=== PATIENT | male | born 1955 | race Caucasian/White ===

== ENCOUNTER 2020-05-17 21:06 | Emergency (ER) | payer OTHER, SELFPAY ==
--- NOTE | 2020-05-17 | CT_ITS ---
EXAMINATION: CT HEAD WITHOUT CONTRAST CLINICAL INFORMATION: Transient vision loss. COMPARISON: 12/26/2019. TECHNIQUE: Contiguous helical images of the brain were obtained without IV contrast. Multiplanar reconstructions were performed. DLP: 716 mGy-cm. FINDINGS: There are no pathologic extra-axial fluid collections. The lateral, third, fourth ventricles are nondilated and concordant with the appearance of the sulci. There is no evidence for acute intraparenchymal hemorrhage or infarct. There is neither mass nor mass effect. There are chronic bilateral basal ganglial lacunar infarcts. Again identified is a small focus of encephalomalacia within the posterior right occipital lobe. There is no shift of midline structures. The paranasal sinuses and mastoid air cells are clear. There are no osseous lesions. IMPRESSION: No evidence for acute intracranial injury. Automated exposure control (Care Dose) Adjustment of the mA and/or kv according to patient size (this includes techniques or standardized protocols for targeted exams where dose is matched to indication / reason for exam; i.e. extremities or head).
[2020-05-17 21:14] VITALS: BP 167/88; PULSE 79; RESP 17; TEMP 36.6; O2SAT 98; BMI 20.4
[2020-05-17 21:25] VITALS: PULSE 73
--- NOTE | 2020-05-17 21:30 | ED.CHESTPAIN ---
HPI - Chest Pain General Chief Complaint: Chest Pain Stated Complaint: Chest Pressure Time Seen by Provider: 05/17/20 21:30 History of Present Illness HPI narrative: This is a 65-year-old male with significant past medical history of recurrent strokes and he reports isolated to his eyes and he also reports recent cardiac catheterization with stent placement. 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 He states it would never result in constant pain and was not associated with exertion Or shortness of breath. He then endorses that he experienced complete vision loss in the left eye at approximately 7:30 a.m. this evening and he states that it lasted for 1 hour and has completely returned. He states that this is similar to other episodes and he did take 181 mg baby aspirin at home. Otherwise, he is experiencing situational stressors with the anniversary of his son's . 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 Related Data Home Medications Medication Instructions Recorded Confirmed amlodipine 10 mg tablet 10 mg PO DAILY 05/16/20 05/17/20 atorvastatin 40 mg tablet 40 mg PO DAILY 05/16/20 05/17/20 bupropion HCl 300 mg 24 hr tablet, 300 mg PO DAILY 05/16/20 05/17/20 extended release carvedilol 25 mg tablet 25 mg PO BID 05/16/20 05/17/20 chlorthalidone 50 mg tablet 50 mg PO DAILY 05/16/20 05/17/20 clopidogrel 75 mg tablet 75 mg PO DAILY 05/16/20 05/17/20 gabapentin 300 mg capsule 300 mg PO DAILY 05/16/20 05/17/20 levofloxacin 750 mg tablet 750 mg PO DAILY 05/16/20 05/17/20 omeprazole 20 mg capsule,delayed 20 mg PO DAILY 05/16/20 05/17/20 release spironolactone 25 mg tablet 25 mg PO DAILY 05/16/20 05/17/20 lisinopril 1 tab PO BID 05/17/20 05/17/20 Allergies Allergy/AdvReac Type Severity Reaction Status Date / Time cat dander [CATS] Allergy Unknown UNKNOWN Unverified 05/01/20 14:37 Review of Systems Review of Systems: Pertinent positives and negatives as stated in HPI 10 point review of systems is otherwise negative. PMFSH Past Medical History Source: nursing notes reviewed Medical History Coronary artery disease CVA (cerebral vascular accident) HTN (hypertension) Myocardial infarction Surgical History History of back surgery History of cholecystectomy Hx of cardiac catheterization Family History Family History Father No problems noted. Social History Social History Smoking Status: Current every day smoker Use of substances other than those prescribed or required for medical reasons: No Advance Directives: No Advance Directives Information Provided: Yes Physical Exam Vital Signs and I&O and Narrative: Vital Signs and I&O: Vital Signs Temp 98 F 05/17/20 21:14 Pulse 79 05/17/20 21:14 Resp 17 05/17/20 21:14 BP 167/88 H 05/17/20 21:14 Pulse Ox 98 05/17/20 21:14 Intake & Output 05/17/20 05/17/20 05/18/20 06:59 18:59 06:59 Weight 68.353 kg Body Mass Index 20.4 VITAL SIGNS: Reviewed. GENERAL: Well developed, well nourished, in no acute distress. HEAD: Normocephalic/atraumatic, EYES: PERRLA, EOMI intact without pain, no nystagmus/pallor/icterus noted EARS: Ext canals without abnormality, TMs non-bulging and non-erythematous NOSE: Nares patent bilateral OROPHARYNX: no oral lesions noted, posterior pharynx clear and non-erythematous without noted tonsillar enlargement/erythema/exudates NECK: Supple, no adenopathy LUNGS: Normal breath sounds. No adventitious sounds or accessory muscle use. SpO2<> CARDIOVASCULAR: Regular rate and rhythm without noted murmurs, no JVD or lower extremity edema. ABDOMEN: Soft, non-tender, non-distended with bowel sounds. No rigidity. No guarding. No palpable masses or hernias noted MUSCULOSKELETAL: No tenderness, deformities, or effusions noted on gross inspection. EXTREMITIES: No cyanosis, clubbing or edema. SKIN: Inspection of the skin reveals no rashes, ulcerations, jaundice, pallor, or petechiae. NEUROLOGIC: Alert and oriented x 4. Strength and sensation to light touch were grossly intact Awake and alert, PERRLA. EOMI without nystagmus. face symmetric. facial sensation intact bilaterally. speech clear and fluent. no tongue deviation. normal uvula elevation. nml shoulder shrug. 5/5 strength bilat upper and lower extrem. sensation grossly intact x4 extrem. FTN intact. no pronator drift. ambulatory with steady gait. NIHSS: <0> at time <2124> Course Course Hospital Course: This patient has had complete resolution of his neurologic symptoms and is currently on aspirin/Plavix and is not a current tPA candidate. 2203: Discussed this case with Neurology who states that patient can be evaluated outpatient, especially given that he has a CTA of the neck from December/2019 that was negative for carotid stenoses there is no indication for further outpatient imaging, and recommends an ESR to ascertain the possibility of giant cell arteritis. Review of all lab work to include imaging and serial high sensitivity troponins are negative for evidence of acute cardiac ischemia, pneumonia, and although the ESR was mildly elevated this can be followed up outpatient as the value is not consistent with giant cell arteritis. CT of the head was negative for any acute intracranial findings. All results and findings were discussed with the patient at bedside and he was instructed to resume all home medications and follow up with his middle school art teacher and primary care provider on Tuesday. MDM - Chest Pain MDM Narrative Medical decision making narrative: This is a 65-year-old male with history and clinical presentation concerning for amaurosis fugax and possible anginal symptoms due to possible emotional stress. Lab Data Result diagrams: 05/17/20 21:46 05/17/20 21:46 Labs: Lab Results 05/17/20 05/17/20 05/17/20 Range/Units 21:35 21:46 21:46 WBC 9.8 (4.8-10.8) X10*3/uL RBC 4.21 L (4.60-5.80) X10*6/uL Hgb 12.8 L (14.0-18.0) g/dl Hct 39.0 L (42-52) % MCV 92.6 (80-98) fL MCH 30.4 (27.0-33.0) pg MCHC 32.8 (31.0-36.0) g/dl RDW 14.2 (11.0-16.0) % Plt Count 306 (160-400) X10*3/uL MPV 10.9 (9.4-12.4) fL Immature Gran % (Auto) 0.3 (0.0-0.4) % Neut % (Auto) 49.9 (45-73) % Lymph % (Auto) 32.5 (20-40) % Ashley % (Auto) 6.8 (2-11) % Eos % (Auto) 9.5 H (0-4) % Baso % (Auto) 1.0 (0-2) % Neut # (Auto) 4.9 (2.0-8.3) X10*3/uL Lymph # (Auto) 3.2 (1.2-4.9) X10*3/uL Ashley # (Auto) 0.7 (0.1-1.2) X10*3/uL Eos # (Auto) 0.9 H (0.0-0.4) X10*3/uL Baso # (Auto) 0.1 (0.0-0.2) X10*3/uL Abs Immat Gran (auto) 0.03 (0.00-0.03) X10*3/uL Absolute Nucleated RBC 0.000 (0.0-0.012) X10*3/uL Nucleated RBC % (auto) 0.0 (0.0-0.2) /100WBC ESR 30 H (0-15) MM/HR PT (10.8-13.0) SEC INR (0.9-1.1) Hold Blue Top Sodium 139 (135-145) mmol/L Potassium 3.8 (3.3-5.1) mmol/l Chloride 106 (96-108) mmol/L Carbon Dioxide 22 (22-29) mmol/L Anion Gap 15 (12-20) BUN 10 (9-16) mg/dL Creatinine 1.14 (0.5-1.4) mg/dL Estim Creat Clear Calc 63.2 Estimated GFR > 60 Random Glucose 73 (60-115) mg/dL Calcium 8.5 (8.4-10.2) mg/dL Total Bilirubin 0.2 (0.0-1.0) mg/dL AST 18 (5-37) U/L ALT 22 (0-40) U/L Alkaline Phosphatase 114 (39-117) U/L Troponin I High Sens (<3.5-35.0) ng/L Total Protein 6.3 L (6.5-8.0) g/dL Albumin 3.9 (3.5-5.0) g/dL 05/17/20 05/17/20 05/18/20 Range/Units 21:46 21:46 00:51 WBC (4.8-10.8) X10*3/uL RBC (4.60-5.80) X10*6/uL Hgb (14.0-18.0) g/dl Hct (42-52) % MCV (80-98) fL MCH (27.0-33.0) pg MCHC (31.0-36.0) g/dl RDW (11.0-16.0) % Plt Count (160-400) X10*3/uL MPV (9.4-12.4) fL Immature Gran % (Auto) (0.0-0.4) % Neut % (Auto) (45-73) % Lymph % (Auto) (20-40) % Ashley % (Auto) (2-11) % Eos % (Auto) (0-4) % Baso % (Auto) (0-2) % Neut # (Auto) (2.0-8.3) X10*3/uL Lymph # (Auto) (1.2-4.9) X10*3/uL Ashley # (Auto) (0.1-1.2) X10*3/uL Eos # (Auto) (0.0-0.4) X10*3/uL Baso # (Auto) (0.0-0.2) X10*3/uL Abs Immat Gran (auto) (0.00-0.03) X10*3/uL Absolute Nucleated RBC (0.0-0.012) X10*3/uL Nucleated RBC % (auto) (0.0-0.2) /100WBC ESR (0-15) MM/HR PT 11.6 (10.8-13.0) SEC INR 1.0 (0.9-1.1) Hold Blue Top SEE NOTE Sodium (135-145) mmol/L Potassium (3.3-5.1) mmol/l Chloride (96-108) mmol/L Carbon Dioxide (22-29) mmol/L Anion Gap (12-20) BUN (9-16) mg/dL Creatinine (0.5-1.4) mg/dL Estim Creat Clear Calc Estimated GFR Random Glucose (60-115) mg/dL Calcium (8.4-10.2) mg/dL Total Bilirubin (0.0-1.0) mg/dL AST (5-37) U/L ALT (0-40) U/L Alkaline Phosphatase (39-117) U/L Troponin I High Sens 22.7 23.5 (<3.5-35.0) ng/L Total Protein (6.5-8.0) g/dL Albumin (3.5-5.0) g/dL ECG Data ECG #1: Attestation: I personally reviewed and interpreted this ECG as follows: Interpretation: Atrial sensed pacer, HR-71, no evidence of ischemia Discharge Plan Discharge Clinical Impression: Loss of vision Chest pain Qualifiers: Chest pain type: unspecified Qualified Code(s): R07.9 - Chest pain, unspecified Patient Disposition: Home, Self-Care Instructions: Chest Pain (ED) Additional Instructions: 1. Resume all home medications as prescribed. 2. follow-up with your middle school art teacher as scheduled on Tuesday The patient and/or family acknowledge understanding of results (as applicable), diagnosis, treatment plan, need for follow up, and symptoms that should prompt a return to the emergency room. Prescriptions: No Action lisinopril 40 mg tablet 1 tab PO BID RF: 0 Referrals: Franck Chris MD [Primary Care Provider] - 2 days ( further discussion regarding recurrent left eye vision loss.)
--- NOTE | 2020-05-17 21:44 | XR_ITS ---
EXAMINATION: XR CHEST CLINICAL INFORMATION: Chest pain COMPARISON: Chest x-ray 09/18/2019 TECHNIQUE: Frontal portable view of the chest was obtained. FINDINGS: Pacemaker leads in the heart. Heart size is normal. The cardiac and mediastinal contours are normal. No pulmonary vascular congestion. The lungs are clear. No pleural effusion or pneumothorax. Compared to prior chest x-ray there has not been substantial change. IMPRESSION: No acute abnormality the chest.
--- NOTE | 2020-05-17 21:44 | ECG_ITS ---
Test Reason : CHEST PRESSURE Blood Pressure : / mmHG Vent. Rate : 071 BPM Atrial Rate : 071 BPM P-R Int : 140 ms QRS Dur : 122 ms QT Int : 440 ms P-R-T Axes : 077 113 089 degrees QTc Int : 478 ms Atrial-sensed ventricular-paced rhythm Abnormal ECG When compared with ECG of 18-SEP-2019 11:59, No significant change was found Referred By: tAiya Denny Electronically Signed By:LAZARO WHITE
[2020-05-17 22:55] LABS: MANUAL DIFF FLAG NO
[2020-05-17 22:57] LABS: Basophils Absolute Auto 0.1 X10*3/uL (0.0-0.2); Eosinophils Absolute Auto 0.9 X10*3/uL (0.0-0.4); Eosinophils Percent Auto 9.5 % (0-4); Hemoglobin 12.8 g/dl (14.0-18.0); Imm Gran Abs Auto 0.03 X10*3/uL (0.00-0.03); Imm Gran Pct Auto 0.3 % (0.0-0.4); Lymphocytes Absolute Auto 3.2 X10*3/uL (1.2-4.9); Lymphocytes Percent Auto 32.5 % (20-40); Mean Corpuscular HGB Conc 32.8 g/dl (31.0-36.0); Mean Corpuscular Hemoglobin 30.4 pg (27.0-33.0); Mean Corpuscular Volume 92.6 fL (80-98); Mean Platelet Volume 10.9 fL (9.4-12.4); Monocytes Absolute Auto 0.7 X10*3/uL (0.1-1.2); Monocytes Percent Auto 6.8 % (2-11); Neutrophils Absolute Auto 4.9 X10*3/uL (2.0-8.3); Neutrophils Percent Auto 49.9 % (45-73); Platelet Count 306 X10*3/uL (160-400); Red Blood Count 4.21 X10*6/uL (4.60-5.80); Red Cell Distribution Width 14.2 % (11.0-16.0); White Blood Count 9.8 X10*3/uL (4.8-10.8)
[2020-05-17 23:18] LABS: Prothrombin Time 11.6 SEC (10.8-13.0)
[2020-05-17 23:31] LABS: Alanine Aminotransferase 22 U/L (0-40); Albumin Level 3.9 g/dL (3.5-5.0); Alkaline Phosphatase 114 U/L (39-117); Anion Gap 15 (12-20); Aspartate Amino Transferase 18 U/L (5-37); Bilirubin Total 0.2 mg/dL (0.0-1.0); Blood Urea Nitrogen 10 mg/dL (9-16); Calcium 8.5 mg/dL (8.4-10.2); Carbon Dioxide 22 mmol/L (22-29); Chloride 106 mmol/L (96-108); Creatinine Clr Calc Pharmacy 63.2; Estimated Glomerular Filt Rate > 60; Glucose Random 73 mg/dL (60-115); Potassium 3.8 mmol/l (3.3-5.1); Sodium 139 mmol/L (135-145); Total Protein 6.3 g/dL (6.5-8.0)
[2020-05-17 23:33] LABS: Troponin-I High Sensitivity 22.7 ng/L (<3.5-35.0)
[2020-05-17 23:36] LABS: Erythrocyte Sedimentation Rate 30 MM/HR (0-15)
[2020-05-18 01:26] LABS: Troponin-I High Sensitivity 23.5 ng/L (<3.5-35.0)
[2020-05-18 02:23] VITALS: BP 142/71; PULSE 66; RESP 18; O2SAT 96
== END 2020-05-18 03:37 | disposition home or self-care (01) ==
PROVIDERS: Emergency Provider Student in an Organized Health Care Education/Training Program; PCP Internal Medicine
DX: R07.9 Chest pain, unspecified (principal); I10 Essential (primary) hypertension; Z86.73 Personal history of transient ischemic attack (TIA), and cerebral infarction without residual deficits
CPT/HCPCS: 36415; 70450; 71045; 80053; 84484; 85025; 85610; 85652; 93005; 93010; 99284

== ENCOUNTER → 2020-05-19 08:48 | Outpatient (BNVA) | payer OTHER, SELFPAY | PROVIDERS: PCP Internal Medicine; Visit Provider Internal Medicine Cardiovascular Disease | DX: I20.8 Other forms of angina pectoris (principal); I25.82 Chronic total occlusion of coronary artery; R06.00 Dyspnea, unspecified; I70.1 Atherosclerosis of renal artery; Z86.73 Personal history of transient ischemic attack (TIA), and cerebral infarction without residual deficits; Z95.820 Peripheral vascular angioplasty status with implants and grafts; Z95.810 Presence of automatic (implantable) cardiac defibrillator | CPT/HCPCS: 99214 ==

== ENCOUNTER → 2020-08-25 12:45 | Outpatient (BNVA) | payer OTHER, SELFPAY | PROVIDERS: PCP Internal Medicine; Visit Provider Internal Medicine Cardiovascular Disease | DX: Z45.02 Encounter for adjustment and management of automatic implantable cardiac defibrillator (principal); I10 Essential (primary) hypertension | CPT/HCPCS: 99212 ==

== ENCOUNTER → 2020-09-01 09:40 | Outpatient (BNVA) | payer OTHER, SELFPAY | PROVIDERS: PCP Internal Medicine; Visit Provider Internal Medicine Cardiovascular Disease | DX: I10 Essential (primary) hypertension (principal) | CPT/HCPCS: 99212 ==

== ENCOUNTER 2020-09-04 08:26 | Outpatient (REF) | payer OTHER, SELFPAY ==
--- NOTE | 2020-09-04 | US_ITS ---
EXAMINATION: US RETROPERITONEAL LIMITED (RENAL ONLY) CLINICAL INFORMATION: Renal artery stenosis. COMPARISON: None TECHNIQUE: Routine grayscale imaging of both kidneys is performed. Doppler imaging of kidneys and abdominal aorta was performed. FINDINGS: RIGHT KIDNEY: 8.7 x 3.5 x 4.2 cm (SAG x AP x TRV). The kidney is normal in size, contour, and echogenicity. Renal cortical thickness is normal. No calculi or focal parenchymal lesions. No hydronephrosis. LEFT KIDNEY: 10.1 x 5.5 x 5.4 cm (SAG x AP x TRV). The kidney is normal in size, contour, and echogenicity. Renal cortical thickness is normal. No calculi or focal parenchymal lesions. No hydronephrosis. RENAL DOPPLER: RIGHT KIDNEY: The proximal renal artery velocity measures 120 cm/s, mid segment measures 126 cm/s and distal segment measures 86.6 cm/s. The renal aortic ratio measures 2.2. The average resistive index measures 0.68. The right renal artery appears mildly tortuous. LEFT KIDNEY: The proximal renal artery velocity measures 93 cm/s, mid segment measures 88.6 cm/s and distal segment measures 78.8 cm/s. Renal aortic ratio measures 1.6. Average resistive index measures 0.73. The mid aorta velocity measures 58.5 cm/s. Atherosclerotic echogenic calcifications are visualized in the aorta. There is normal patency of bilateral renal veins. US/US renal BI IMPRESSION: 1. Unremarkable renal ultrasound. 2. Normal renal Doppler ultrasound both kidneys with no suspicion for renal artery stenosis.
--- NOTE | 2020-09-04 08:30 | US_ITS ---
EXAMINATION: US RETROPERITONEAL LIMITED (RENAL ONLY) CLINICAL INFORMATION: Renal artery stenosis. COMPARISON: None TECHNIQUE: Routine grayscale imaging of both kidneys is performed. Doppler imaging of kidneys and abdominal aorta was performed. FINDINGS: RIGHT KIDNEY: 8.7 x 3.5 x 4.2 cm (SAG x AP x TRV). The kidney is normal in size, contour, and echogenicity. Renal cortical thickness is normal. No calculi or focal parenchymal lesions. No hydronephrosis. LEFT KIDNEY: 10.1 x 5.5 x 5.4 cm (SAG x AP x TRV). The kidney is normal in size, contour, and echogenicity. Renal cortical thickness is normal. No calculi or focal parenchymal lesions. No hydronephrosis. RENAL DOPPLER: RIGHT KIDNEY: The proximal renal artery velocity measures 120 cm/s, mid segment measures 126 cm/s and distal segment measures 86.6 cm/s. The renal aortic ratio measures 2.2. The average resistive index measures 0.68. The right renal artery appears mildly tortuous. LEFT KIDNEY: The proximal renal artery velocity measures 93 cm/s, mid segment measures 88.6 cm/s and distal segment measures 78.8 cm/s. Renal aortic ratio measures 1.6. Average resistive index measures 0.73. The mid aorta velocity measures 58.5 cm/s. Atherosclerotic echogenic calcifications are visualized in the aorta. There is normal patency of bilateral renal veins. US/US renal doppler IMPRESSION: 1. Unremarkable renal ultrasound. 2. Normal renal Doppler ultrasound both kidneys with no suspicion for renal artery stenosis.
[2020-09-04 11:56] LABS: Anion Gap 12 (12-20); Blood Urea Nitrogen 16 mg/dL (9-16); Calcium 9.2 mg/dL (8.4-10.2); Carbon Dioxide 28 mmol/L (22-29); Chloride 102 mmol/L (96-108); Estimated Glomerular Filt Rate 56; Glucose Random 81 mg/dL (60-115); Potassium 4.1 mmol/l (3.3-5.1); Sodium 138 mmol/L (135-145)
== END 2020-09-04 08:27 | disposition home or self-care (01) ==
LOC: HO.HMGCX 08:26
PROVIDERS: PCP Internal Medicine; Visit Provider Internal Medicine Cardiovascular Disease
DX: I70.1 Atherosclerosis of renal artery (principal)
CPT/HCPCS: 36415; 76775; 80048; 93975

== ENCOUNTER → 2020-09-10 13:11 | Outpatient (BNVA) | payer OTHER, SELFPAY | PROVIDERS: PCP Internal Medicine; Visit Provider Nurse Practitioner Family | DX: I70.1 Atherosclerosis of renal artery (principal); I10 Essential (primary) hypertension; I25.10 Atherosclerotic heart disease of native coronary artery without angina pectoris; Z95.810 Presence of automatic (implantable) cardiac defibrillator | CPT/HCPCS: 99212 ==

== ENCOUNTER 2020-09-18 09:30 | Outpatient (REF) | payer OTHER, SELFPAY ==
[2020-09-18 12:23] LABS: Hematocrit 48.3 % (42-52); Hemoglobin 15.9 g/dl (14.0-18.0); Mean Corpuscular HGB Conc 32.9 g/dl (31.0-36.0); Mean Corpuscular Hemoglobin 29.4 pg (27.0-33.0); Mean Corpuscular Volume 89.4 fL (80-98); Mean Platelet Volume 11.8 fL (9.4-12.4); Platelet Count 314 X10*3/uL (160-400); Red Cell Distribution Width 13.4 % (11.0-16.0); White Blood Count 7.6 X10*3/uL (4.8-10.8)
[2020-09-18 12:26] LABS: INTERNATIONAL NORM RATIO 0.9 (0.9-1.1); Prothrombin Time 11.1 SEC (10.8-13.0)
[2020-09-18 12:49] LABS: Blood Urea Nitrogen 21 mg/dL (9-16); Estimated Glomerular Filt Rate 49
== END 2020-09-18 09:31 | disposition home or self-care (01) ==
LOC: HO.LAB 09:30
PROVIDERS: Absent Provider Radiology Vascular & Interventional Radiology; PCP Internal Medicine; Visit Provider Internal Medicine Cardiovascular Disease
DX: I10 Essential (primary) hypertension (principal); I70.1 Atherosclerosis of renal artery; I25.10 Atherosclerotic heart disease of native coronary artery without angina pectoris; I73.9 Peripheral vascular disease, unspecified; F17.200 Nicotine dependence, unspecified, uncomplicated; I25.2 Old myocardial infarction; Z79.82 Long term (current) use of aspirin; Z79.899 Other long term (current) drug therapy
CPT/HCPCS: 36415; 82565; 84520; 85027; 85610; 99212

== ENCOUNTER → 2020-10-13 12:09 | Outpatient (BNVA) | payer OTHER, SELFPAY | PROVIDERS: PCP Internal Medicine; Visit Provider Internal Medicine Cardiovascular Disease | DX: I25.10 Atherosclerotic heart disease of native coronary artery without angina pectoris (principal); I10 Essential (primary) hypertension; I70.1 Atherosclerosis of renal artery; Z95.820 Peripheral vascular angioplasty status with implants and grafts | CPT/HCPCS: 99212 ==

== ENCOUNTER 2020-10-15 10:47 | Outpatient (REF) | payer OTHER, SELFPAY ==
[2020-10-15 12:06] LABS: Anion Gap 12 (12-20); Blood Urea Nitrogen 9 mg/dL (9-16); Calcium 9.1 mg/dL (8.4-10.2); Carbon Dioxide 30 mmol/L (22-29); Chloride 94 mmol/L (96-108); Estimated Glomerular Filt Rate > 60; Glucose Random 106 mg/dL (60-115); Potassium 3.6 mmol/L (3.3-5.1); Sodium 132 mmol/L (135-145)
== END 2020-10-15 10:48 | disposition home or self-care (01) ==
LOC: HO.LAB 10:47
PROVIDERS: Internal Medicine Cardiovascular Disease; PCP Internal Medicine; Visit Provider Radiology Radiation Oncology
DX: I10 Essential (primary) hypertension (principal)
CPT/HCPCS: 36415; 80048

== ENCOUNTER 2020-11-07 12:35 | Outpatient (REF) | payer OTHER, SELFPAY ==
--- NOTE | ~2020-11-07 | CT_ITS ---
EXAMINATION: CT CHEST WITHOUT CONTRAST CLINICAL INFORMATION: Pulmonary nodules. COMPARISON: CT chest 11/14/2019. TECHNIQUE: Multidetector volumetric CT imaging of the chest was done. Axial MIP volume rendering provided. Sagittal and coronal reformatted images were obtained. This CT examination was performed using dose optimization techniques as appropriate, variously including the following: *Automated exposure control *Adjustment of mA and/or kV according to patient size (this includes techniques or standardized protocols for targeted exams where dose is matched to indication/reason for exam; i.e. extremities or head) *Use of iterative reconstruction technique DLP: 148 mGy-cm. FINDINGS: GAG WRITER: Well-expanded lungs without acute process. There are pacer electrodes in right atrium and right ventricle LUNGS: There is diffuse centrilobular emphysematous changes of both lungs. There are several nodules seen: A 4 mm nodule left lung apex image 68/8, 3 mm nodule pleural-based right lung apex image 99/8, 3 minute nodule left upper lobe adjacent to the major fissure axial image 156/8, 5 mm nodule left upper lobe centrally axial image 268/8. No additional nodules visualized. No acute pneumonic process seen. There is minimal atelectatic changes in both lung bases. MEDIASTINUM: The thyroid lobes are symmetrical and normal. The central trachea and the bronchi are widely patent. There are pacemaker electrodes in right atrium and right ventricle. The heart size is normal. There is no pericardial effusion. There are coronary artery calcifications present. No abnormal size mediastinal or hilar lymph nodes seen. PLEURA: There is no pleural effusion. No pleural mass or thickening. AXILLA: Small shotty lymph nodes in the bilateral axillae The chest wall appears unremarkable. UPPER ABDOMEN: Visualized liver, spleen, pancreas and bilateral adrenal glands are unremarkable. There is a right renal stent visualized. OSSEOUS STRUCTURES: No lytic or sclerotic process seen. CT/CT chest wo con IMPRESSION: Emphysema with stable bilateral pulmonary nodules. No new nodules seen. No abnormal mediastinal adenopathy.
== END 2020-11-07 12:36 | disposition home or self-care (01) ==
LOC: HO.CT 12:35
PROVIDERS: Visit Provider Internal Medicine Pulmonary Disease
DX: R91.1 Solitary pulmonary nodule (principal)
CPT/HCPCS: 71250

== ENCOUNTER → 2021-01-14 12:26 | Outpatient (BNVA) | payer OTHER, SELFPAY | PROVIDERS: PCP Internal Medicine; Referring Provider Internal Medicine; Visit Provider Internal Medicine Cardiovascular Disease | DX: Z45.02 Encounter for adjustment and management of automatic implantable cardiac defibrillator (principal); I25.10 Atherosclerotic heart disease of native coronary artery without angina pectoris; I10 Essential (primary) hypertension | CPT/HCPCS: 93005; 99212 ==

== ENCOUNTER → 2021-02-06 09:25 | Outpatient (REF) | payer OTHER, SELFPAY ==
--- NOTE | 2021-02-06 09:37 | ECG_ITS ---
Test Reason : PREOP Blood Pressure : / mmHG Vent. Rate : 060 BPM Atrial Rate : 060 BPM P-R Int : 158 ms QRS Dur : 134 ms QT Int : 476 ms P-R-T Axes : 070 257 083 degrees QTc Int : 476 ms AV dual-paced rhythm Abnormal ECG When compared with ECG of 17-MAY-2020 21:10, Vent. rate has decreased BY 11 BPM Referred By: Harley Choi Electronically Signed By:Bernard Arnold
== END ==
LOC: HO.CARD 09:25
PROVIDERS: PCP Internal Medicine; Visit Provider Ophthalmology
DX: Z01.818 Encounter for other preprocedural examination (principal)
CPT/HCPCS: 93005

== ENCOUNTER → 2021-02-12 08:56 | Outpatient (BNVA) | payer OTHER, SELFPAY | PROVIDERS: PCP Internal Medicine; Visit Provider Internal Medicine Pulmonary Disease | DX: J44.9 Chronic obstructive pulmonary disease, unspecified (principal); R06.00 Dyspnea, unspecified | CPT/HCPCS: 99212 ==

== ENCOUNTER 2021-03-04 09:22 | Outpatient (REF) | payer OTHER, SELFPAY ==
[2021-03-04 10:06] LABS: MANUAL DIFF FLAG NO
[2021-03-04 10:30] LABS: Basophils Absolute Auto 0.1 X10*3/uL (0.0-0.2); Basophils Percent Auto 0.9 % (0-2); Eosinophils Absolute Auto 0.1 X10*3/uL (0.0-0.4); Eosinophils Percent Auto 1.7 % (0-4); Hematocrit 42.1 % (42-52); Imm Gran Abs Auto 0.04 X10*3/uL (0.00-0.03); Imm Gran Pct Auto 0.5 % (0.0-0.4); Lymphocytes Absolute Auto 2.4 X10*3/uL (1.2-4.9); Lymphocytes Percent Auto 31.4 % (20-40); Mean Corpuscular HGB Conc 33.3 g/dl (31.0-36.0); Mean Corpuscular Hemoglobin 29.8 pg (27.0-33.0); Mean Corpuscular Volume 89.6 fL (80-98); Mean Platelet Volume 10.4 fL (9.4-12.4); Monocytes Absolute Auto 0.5 X10*3/uL (0.1-1.2); Monocytes Percent Auto 5.8 % (2-11); Neutrophils Absolute Auto 4.6 X10*3/uL (2.0-8.3); Neutrophils Percent Auto 59.7 % (45-73); Platelet Count 342 X10*3/uL (160-400); Red Cell Distribution Width 13.6 % (11.0-16.0); White Blood Count 7.8 X10*3/uL (4.8-10.8)
[2021-03-04 10:36] LABS: Glucose Urine UA NEG (NEG); Leukocyte Esterase Urine NEG (NEG); Nitrite Urine NEG (NEG); PH 6.5 (5.0-8.0); Urine Blood NEG (NEG); Urine Ketones NEG (NEG); Urine Protein NEG (NEG-TRACE)
[2021-03-04 10:39] LABS: Appearance Urine CLEAR; Color Urine YELLOW
[2021-03-04 10:55] LABS: Creatinine Urine 51.23 mg/dL; Microalbumin Urine < 5.0 mg/L
[2021-03-04 11:03] LABS: Anion Gap 12 (12-20); Blood Urea Nitrogen 8 mg/dL (9-16); Calcium 9.5 mg/dL (8.4-10.2); Carbon Dioxide 29 mmol/L (22-29); Chloride 95 mmol/L (96-108); Estimated Glomerular Filt Rate > 60; Iron 48 mcg/dL (45-160); Magnesium 1.8 mg/dL (1.6-2.6); Percent Iron Saturation 16 % (15-50); Sodium 132 mmol/L (135-145); Total Iron Binding Capacity 291 mcg/dL (228-428); Unsaturated Iron Binding 243 ug/dL
[2021-03-05 19:45] LABS: Calcium (PTHI) 9.4 mg/dL (8.6-10.3); PTHI 35 pg/mL (14-64)
== END 2021-03-04 09:23 | disposition home or self-care (01) ==
LOC: HO.LAB 09:22
PROVIDERS: Absent Provider Internal Medicine; PCP Internal Medicine; Visit Provider Internal Medicine Nephrology
DX: I10 Essential (primary) hypertension (principal); I70.1 Atherosclerosis of renal artery
CPT/HCPCS: 36415; 80051; 81003; 82043; 82310; 82565; 83540; 83735; 83970; 84520; 84550; 85025

== ENCOUNTER 2021-03-09 10:14 | Outpatient (REF) | payer OTHER, SELFPAY ==
[2021-03-09 10:17] LABS: MANUAL DIFF FLAG NO
[2021-03-09 10:28] LABS: Basophils Absolute Auto 0.1 X10*3/uL (0.0-0.2); Basophils Percent Auto 0.9 % (0-2); Eosinophils Absolute Auto 0.2 X10*3/uL (0.0-0.4); Eosinophils Percent Auto 2.4 % (0-4); Hematocrit 42.6 % (42-52); Hemoglobin 14.1 g/dl (14.0-18.0); Imm Gran Abs Auto 0.03 X10*3/uL (0.00-0.03); Imm Gran Pct Auto 0.3 % (0.0-0.4); Lymphocytes Absolute Auto 2.5 X10*3/uL (1.2-4.9); Lymphocytes Percent Auto 28.1 % (20-40); Mean Corpuscular HGB Conc 33.1 g/dl (31.0-36.0); Mean Corpuscular Hemoglobin 30.3 pg (27.0-33.0); Mean Corpuscular Volume 91.6 fL (80-98); Mean Platelet Volume 10.6 fL (9.4-12.4); Monocytes Absolute Auto 0.7 X10*3/uL (0.1-1.2); Monocytes Percent Auto 8.1 % (2-11); Neutrophils Absolute Auto 5.3 X10*3/uL (2.0-8.3); Neutrophils Percent Auto 60.2 % (45-73); Platelet Count 317 X10*3/uL (160-400); Red Blood Count 4.65 X10*6/uL (4.60-5.80); Red Cell Distribution Width 14.5 % (11.0-16.0); White Blood Count 8.7 X10*3/uL (4.8-10.8)
[2021-03-09 10:32] LABS: Estimated Average Glucose 117 mg/dL; Hemoglobin A1c % 5.7 %
[2021-03-09 10:35] LABS: Glucose Urine UA NEG (NEG); Leukocyte Esterase Urine NEG (NEG); Nitrite Urine NEG (NEG); PH 7.5 (5.0-8.0); Specific Gravity - Urine <= 1.005 (1.005-1.025); Urine Blood NEG (NEG); Urine Ketones NEG (NEG); Urine Protein NEG (NEG-TRACE)
[2021-03-09 10:43] LABS: Appearance Urine CLEAR; Color Urine YELLOW
[2021-03-09 11:02] LABS: Alanine Aminotransferase 26 U/L (0-40); Albumin Level 3.8 g/dL (3.5-5.0); Alkaline Phosphatase 119 U/L (39-117); Anion Gap 12 (12-20); Aspartate Amino Transferase 17 U/L (5-37); Bilirubin Total 0.3 mg/dL (0.0-1.0); Blood Urea Nitrogen 7 mg/dL (9-16); Calcium 9.1 mg/dL (8.4-10.2); Carbon Dioxide 26 mmol/L (22-29); Chloride 103 mmol/L (96-108); Cholesterol 220 mg/dL; Estimated Glomerular Filt Rate > 60; Glucose Fasting 99 mg/dL (60-99); HDL Cholesterol 37 mg/dL; LDL Cholesterol Calculated 153 mg/dl; Potassium 4.8 mmol/L (3.3-5.1); Sodium 136 mmol/L (135-145); Triglycerides 153 mg/dL
[2021-03-09 11:09] LABS: Creatinine Urine 93.11 mg/dL; Microalbum/Creatinine Ratio Ur 19.3 ug/mg cr
[2021-03-09 11:24] LABS: PSA,Total (Free>4and<10) 0.97 ng/mL (0.00-4.00)
[2021-03-09 11:26] LABS: Reflex LDLD? No
== END 2021-03-09 10:15 | disposition home or self-care (01) ==
LOC: HO.LNP 10:14
PROVIDERS: Visit Provider Internal Medicine
DX: Z00.00 Encounter for general adult medical examination without abnormal findings (principal); Z12.5 Encounter for screening for malignant neoplasm of prostate; R73.03 Prediabetes; E78.00 Pure hypercholesterolemia, unspecified; I10 Essential (primary) hypertension
CPT/HCPCS: 80053; 80061; 81003; 82043; 83036; 84153; 85025

== ENCOUNTER → 2021-04-16 12:18 | Outpatient (BNVA) | payer MEDICARE, MEDICAID, SELFPAY | PROVIDERS: PCP Internal Medicine; Referring Provider Internal Medicine; Visit Provider Surgery | DX: D36.13 Benign neoplasm of peripheral nerves and autonomic nervous system of lower limb, including hip (principal) | CPT/HCPCS: 99202 ==

== ENCOUNTER 2021-04-24 11:29 | Outpatient (REF) | payer MEDICARE, MEDICAID, SELFPAY ==
[2021-04-24 11:58] VITALS: BP 132/80; PULSE 74; RESP 16; TEMP 36.1; O2SAT 97
[2021-04-24 12:02] VITALS: BMI 19.6
--- NOTE | 2021-04-24 12:49 | W.PM.OPN ---
Operative Note Operative Note Date of Service: 04/24/21 Narrative: Preoperative diagnosis: Neuroma left groin Postoperative diagnosis: Lipoma left groin Procedure: Excision of lipoma left groin Surgeon: Amado Conley MD Glass Processing Worker: No physician Anesthesia: Local Indications for procedure: 66-year-old male patient presenting with a soft tissue mass in the left groin measuring approximately 2 cm in diameter extending into the subcutaneous tissue Operative findings: Soft tissue mass consistent with a lipoma within the subcutaneous tissue measuring 2 cm in diameter Specimen: Lipoma left groin Estimated blood loss: 1 mL Complications: None Procedure details: Patient was brought to the minor surgery suite placed in a supine position. Site of surgery was confirmed by the patient in the left groin. Informed consent was confirmed. Skin was prepped with Betadine and draped in sterile fashion. Local anesthesia consisting of 1% lidocaine with epinephrine was then infiltrated circumferentially around the lesion in the left groin. Elliptical incision was then made with a scalpel carried out through subcutaneous tissue. Sharp dissection was then used to dissect the soft tissue mass from the surrounding subcutaneous tissue. The specimen was passed off the table and sent to pathology for further examination. Pressure was held to maintain hemostasis. Skin was reapproximated using interrupted 3-0 Polysorb sutures in dermis. Skin was then closed using interrupted 4-0 nylon sutures. Sterile dressings consisting of a 2 x 2 gauze and Tegaderm were then applied. Patient tolerated the procedure well. He was discharged to home in stable condition. He will follow up in 1 week for suture removal.
[2021-04-24 13:00] VITALS: BP 142/82; PULSE 79; RESP 16; O2SAT 98
== END 2021-04-24 11:30 | disposition home or self-care (01) ==
LOC: HO.MS 11:29
PROVIDERS: PCP Internal Medicine; Visit Provider Surgery
PROC: (CPT 11402; principal; 2021-04-24 12:20)
DX: D17.24 Benign lipomatous neoplasm of skin and subcutaneous tissue of left leg (principal)
CPT/HCPCS: 11402; 88304

== ENCOUNTER → 2021-04-30 08:22 | Outpatient (BNVA) | payer MEDICARE, MEDICAID, SELFPAY | PROVIDERS: PCP Internal Medicine; Referring Provider Internal Medicine; Visit Provider Surgery | DX: Z48.817 Encounter for surgical aftercare following surgery on the skin and subcutaneous tissue (principal); Z87.2 Personal history of diseases of the skin and subcutaneous tissue | CPT/HCPCS: 99212 ==

== ENCOUNTER → 2021-05-27 13:13 | Outpatient (BNVA) | payer MEDICARE, MEDICAID, SELFPAY | PROVIDERS: PCP Internal Medicine; Referring Provider Internal Medicine; Visit Provider Internal Medicine Cardiovascular Disease | DX: I48.92 Unspecified atrial flutter (principal); I20.8 Other forms of angina pectoris; R06.00 Dyspnea, unspecified | CPT/HCPCS: 99212 ==

== ENCOUNTER → 2021-06-17 10:53 | Outpatient (BNVA) | payer MEDICARE, MEDICAID, SELFPAY | PROVIDERS: PCP Internal Medicine; Visit Provider Internal Medicine Pulmonary Disease | DX: J44.9 Chronic obstructive pulmonary disease, unspecified (principal); R91.8 Other nonspecific abnormal finding of lung field; R06.00 Dyspnea, unspecified; F17.210 Nicotine dependence, cigarettes, uncomplicated | CPT/HCPCS: 99212 ==

== ENCOUNTER 2021-09-12 11:31 | Emergency (ER) | payer MEDICARE, MEDICAID, SELFPAY ==
--- NOTE | 2021-09-12 | ECG_ITS ---
Test Reason : HEART PALPITATIONS Blood Pressure : / mmHG Vent. Rate : 073 BPM Atrial Rate : 073 BPM P-R Int : 144 ms QRS Dur : 124 ms QT Int : 420 ms P-R-T Axes : 069 099 080 degrees QTc Int : 462 ms Atrial-sensed ventricular-paced rhythm Biventricular pacemaker detected Abnormal ECG When compared with ECG of 06-FEB-2021 09:44, Vent. rate has increased BY 13 BPM Referred By: Generic ED Physician Electronically Signed By:KRISTINA LEVINE MD
--- NOTE | ~2021-09-12 | CT_ITS ---
CT head/brain wo con CLINICAL INFORMATION: Reason for Exam Headache COMPARISON: No prior CT scan available for comparison. TECHNIQUE: Department standard protocol. This CT examination was performed using dose optimization techniques as appropriate, variously including the following: *Automated exposure control *Adjustment of mA and/or kV according to patient size (this includes techniques or standardized protocols for targeted exams where dose is matched to indication/reason for exam; i.e. extremities or head) *Use of iterative reconstruction technique DLP: 742 mGy-cm FINDINGS: CEREBRAL HEMISPHERES: There is no evidence of intra-axial or extra-axial mass, hemorrhage or acute infarct. BRAIN PARENCHYMA: Normal alarcon-white matter differentiation. SUBDURAL SPACE: No bleed. BASAL GANGLIA AND PINEAL GLAND: There is a lacunar infarct in the right caudate lobe measure about 4 mm this is old and has not changed from prior CT of 05/17/2020. Second lacunar infarct in the left lentiform nucleus also old. VENTRICLES: Symmetric and normal in size. CEREBELLUM AND BRAINSTEM: No space-occupying mass, hemorrhage or acute infarct. CEREBELLOPONTINE ANGLES: No lesion found. ORBITS: No intraorbital mass. VESSELS: Unremarkable SKULL BASE: Unremarkable INCLUDED SINUSES AT SKULL BASE: Clear SKULL AND SKIN: No fracture or bone lesion found. CT/CT head/brain wo con IMPRESSION: No evidence of acute intracranial event or mass. No intracranial bleed. Old lacunar infarct in the right caudate lobe and left lentiform nucleus unchanged. Normal CT scan does not rule out the possibility of hyperacute infarct in the first 12 hours. If patient symptoms persist may consider correlation with MRI, which is more sensitive for early acute infarct.
[2021-09-12 11:35] VITALS: BP 145/78; PULSE 103; RESP 19; TEMP 36.5; O2SAT 99; BMI 19.9
[2021-09-12 12:00] VITALS: BP 131/77; PULSE 66
--- NOTE | 2021-09-12 12:01 | ED_ITS ---
HPI - Dizziness General Chief Complaint: Dizziness Stated Complaint: high heart rate on pacemaker Time Seen by Provider: 09/12/21 11:48 History of Present Illness HPI Narrative: Patient with cardiac history including pacemaker an implanted defibrillator complains of an episode this morning where he felt he might pass out he felt very lightheaded and thought he was about to faint Yesterday he had a slightly different episode where he felt pressure in his chest accompanied by a rapid heart rate which he checked on his watch and was 150. He has never had this feeling of chest pressure before He says his heart rate had for the last 24 hours has been intermittently fast around 150 He also had a headache briefly yesterday which is not common for him, the headache came on quickly and then resolved Right now he has no chest pressure or dizziness or Negatives no fever no chills no sweating no vomiting , symptoms happened while he was at rest Related Data Home Medications Medication Instructions Recorded Confirmed amlodipine 10 mg tablet 10 mg PO DAILY 05/16/20 05/27/21 atorvastatin 40 mg tablet 40 mg PO DAILY 05/16/20 05/27/21 bupropion HCl 300 mg 24 hr 300 mg PO DAILY 05/16/20 05/27/21 tablet, extended release gabapentin 300 mg capsule 300 mg PO DAILY 05/16/20 05/27/21 omeprazole 20 mg capsule,delayed 20 mg PO DAILY 05/16/20 05/27/21 release albuterol sulfate 90 INHALATION 08/25/20 05/27/21 mcg/actuation aerosol inhaler diclofenac sodium 0.1 % eye 0 drp OPHTHALMIC (EYE) 06/17/21 drops losartan 50 mg tablet 50 mg PO DAILY 06/17/21 rosuvastatin 40 mg tablet 40 mg PO DAILY 06/17/21 tiotropium bromide 2.5 2 puff INHALATION DAILY 06/17/21 mcg/actuation mist for inhalation (Spiriva Respimat) Previous Rx's Medication Instructions Recorded carvedilol 25 mg tablet 25 mg PO BID 90 Days #180 tab 03/02/21 clopidogrel 75 mg tablet 75 mg PO DAILY 90 Days #90 tab 03/03/21 apixaban 5 mg tablet (Eliquis) 5 mg PO BID #60 tab 04/09/21 nitroglycerin 0.4 mg sublingual 0.4 mg SUBLINGUAL Q5M PRN #60 tab 06/10/21 tablet fluticasone fur. 100 mcg-umeclid 1 inh INHALATION DAILY 30 Days #1 06/17/21 62.5 mcg-vilant 25 mcg ea inhalat.powder (Trelegy Ellipta) Allergies Allergy/AdvReac Type Severity Reaction Status Date / Time cat dander [CATS] Allergy Unknown UNKNOWN Verified 06/17/21 10:55 Review of Systems Verdana 4l Review of Systems: Verdana 4d Verdana 4d Positive for chest pressure, presyncope, palpitations and rapid heart rate and resolved headache Negatives are no fever no chills no loss of consciousness no fainting no diaphoresis no vision changes no nausea or vomiting no diaphoresis nono stiff neck or neck pain no abdominal pain no nausea vomiting or diarrhea no dysuria no skin rash no leg swelling no calf pain no numbness or weakness no confusion Yes all other systems are reviewed and are negative PMFSH Past Medical History Source: nursing notes reviewed Medical History Coronary artery disease CVA (cerebral vascular accident) HTN (hypertension) Myocardial infarction NICM (nonischemic cardiomyopathy) Uncontrolled hypertension Surgical History History of back surgery History of cholecystectomy Hx of cardiac catheterization Family History Family History Father No problems noted. Social History Social History (Updated 05/27/21 @ 13:17 by LI Melgar) Alcohol intake: never Patient Tobacco Use Status: Current everyday Tobacco user Tobacco use type: Cigarette Cigarette Packs Per Day: 0.25 Cigarettes Per Day: 6 Years Smoked: 54 Advance Directives: No Advance Directives Information Provided: Yes Physical Exam Verdana 4l Vital Signs: Verdana 4d Verdana 4d Vital Signs: Verdana 4d Verdana 4Bd Last Vital Signs Verdana 4d Disaster Recovery Manager New 4d Disaster Recovery Manager New 4d Temp 97.7 F 09/12/21 11:35 Disaster Recovery Manager New 4d Pulse 103 H 09/12/21 11:35 Disaster Recovery Manager New 4d Resp 19 09/12/21 11:35 BP 145/78 H 09/12/21 11:35 Pulse Ox 99 09/12/21 11:35 BMI result Body Mass Index 19.9 General appearance is no acute distress The head is normocephalic atraumatic Pupils equal round reactive to light extraocular motions are intact Neck is supple Chest is clear to auscultation bilateral Heart no murmur auscultated Abdomen is soft and nontender Extremities no edema no calf tenderness or swelling Neuro gait and balance are normal, interaction both comprehension and expression are normal, motor is 5/5 x4, sensation is intact and symmetrical and cerebellar is normal Course Course Course Narrative: EKG showed a paced rhythm with a heart rate of 73, no acute ischemic changes No acute lab abnormality, 1st troponin was 4.4 Patient remained stable during his 1st hours of his ER visit with out symptoms Case was discussed with Dr. Dunne dev technical mgr who advised admit for observation due to the patient's new symptoms over the last 24 hours and he will be admitted to tele A head CT was done as well because the patient is on blood thinners and had the unusual headache yesterday and it Did not reveal any bleed or acute pathology MDM - Dizziness Lab Data Attestation: I reviewed the patient's lab results. Result diagrams: 09/12/21 12:08 09/12/21 12:08 Labs: Lab Results 09/12/21 09/12/21 09/12/21 Range/Units 12:08 12:08 12:08 WBC 8.5 (4.8-10.8) X10*3/uL RBC 4.70 (4.60-5.80) X10*6/uL Hgb 14.2 (14.0-18.0) g/dl Hct 43.0 (42.0-52.0) % MCV 91.5 (80.0-98.0) fL MCH 30.2 (27.0-33.0) pg MCHC 33.0 (31.0-36.0) g/dl RDW 14.3 (11.0-16.0) % Plt Count 304 (160-400) X10*3/uL MPV 10.0 (9.4-12.4) fL Immature Gran % (Auto) 0.5 H (0.0-0.4) % Neut % (Auto) 58.5 (45-73) % Lymph % (Auto) 30.9 (20-40) % [place] % (Auto) 6.8 (2-11) % Eos % (Auto) 2.5 (0-4) % Baso % (Auto) 0.8 (0-2) % Lymph # (Auto) 2.6 (1.2-4.9) X10*3/uL [place] # (Auto) 0.6 (0.1-1.2) X10*3/uL Eos # (Auto) 0.2 (0.0-0.4) X10*3/uL Baso # (Auto) 0.1 (0.0-0.2) X10*3/uL Abs Immat Gran (auto) 0.04 H (0.00-0.03) X10*3/uL Absolute Neuts (auto) 5.0 (2.0-8.3) x10*3/uL Absolute Nucleated RBC 0.000 (0.0-0.012) X10*3/uL Nucleated RBC % (auto) 0.0 (0.0-0.2) /100WBC PT (9.9-13.0) SEC INR (0.9-1.1) Sodium 137 (135-145) mmol/L Potassium 4.2 (3.3-5.1) mmol/L Chloride 104 (96-108) mmol/L Carbon Dioxide 24 (22-29) mmol/L Anion Gap 13 (12-20) BUN 12 (9-16) mg/dL Creatinine 1.09 (0.5-1.4) mg/dL Estim Creat Clear Calc 63.7 Estimated GFR > 60 Random Glucose 82 (60-115) mg/dL Calcium 9.2 (8.4-10.2) mg/dL Total Bilirubin 0.3 (0.0-1.0) mg/dL Direct Bilirubin < 0.2 (0.0-0.5) mg/dL AST 19 (5-37) U/L ALT 27 (0-40) U/L Alkaline Phosphatase 125 H (39-117) U/L Troponin I High Sens 4.4 (<3.5-35.0) ng/L B-Natriuretic Peptide (<100) pg/mL Total Protein 6.5 (6.5-8.0) g/dL Albumin 3.8 (3.5-5.0) g/dL 09/12/21 09/12/21 Range/Units 12:10 12:10 WBC (4.8-10.8) X10*3/uL RBC (4.60-5.80) X10*6/uL Hgb (14.0-18.0) g/dl Hct (42.0-52.0) % MCV (80.0-98.0) fL MCH (27.0-33.0) pg MCHC (31.0-36.0) g/dl RDW (11.0-16.0) % Plt Count (160-400) X10*3/uL MPV (9.4-12.4) fL Immature Gran % (Auto) (0.0-0.4) % Neut % (Auto) (45-73) % Lymph % (Auto) (20-40) % [place] % (Auto) (2-11) % Eos % (Auto) (0-4) % Baso % (Auto) (0-2) % Lymph # (Auto) (1.2-4.9) X10*3/uL [place] # (Auto) (0.1-1.2) X10*3/uL Eos # (Auto) (0.0-0.4) X10*3/uL Baso # (Auto) (0.0-0.2) X10*3/uL Abs Immat Gran (auto) (0.00-0.03) X10*3/uL Absolute Neuts (auto) (2.0-8.3) x10*3/uL Absolute Nucleated RBC (0.0-0.012) X10*3/uL Nucleated RBC % (auto) (0.0-0.2) /100WBC PT 10.3 (9.9-13.0) SEC INR 0.9 (0.9-1.1) Sodium (135-145) mmol/L Potassium (3.3-5.1) mmol/L Chloride (96-108) mmol/L Carbon Dioxide (22-29) mmol/L Anion Gap (12-20) BUN (9-16) mg/dL Creatinine (0.5-1.4) mg/dL Estim Creat Clear Calc Estimated GFR Random Glucose (60-115) mg/dL Calcium (8.4-10.2) mg/dL Total Bilirubin (0.0-1.0) mg/dL Direct Bilirubin (0.0-0.5) mg/dL AST (5-37) U/L ALT (0-40) U/L Alkaline Phosphatase (39-117) U/L Troponin I High Sens (<3.5-35.0) ng/L B-Natriuretic Peptide 31 (<100) pg/mL Total Protein (6.5-8.0) g/dL Albumin (3.5-5.0) g/dL Discharge Plan Discharge Clinical Impression: Pre-syncope, Chest pressure, Palpitations Patient Disposition: Admitted As Inpatient
[2021-09-12 12:11] LABS: MANUAL DIFF FLAG NO
[2021-09-12 12:12] LABS: Basophils Absolute Auto 0.1 X10*3/uL (0.0-0.2); Basophils Percent Auto 0.8 % (0-2); Eosinophils Absolute Auto 0.2 X10*3/uL (0.0-0.4); Eosinophils Percent Auto 2.5 % (0-4); Hemoglobin 14.2 g/dl (14.0-18.0); Imm Gran Abs Auto 0.04 X10*3/uL (0.00-0.03); Imm Gran Pct Auto 0.5 % (0.0-0.4); Lymphocytes Absolute Auto 2.6 X10*3/uL (1.2-4.9); Lymphocytes Percent Auto 30.9 % (20-40); Mean Corpuscular Hemoglobin 30.2 pg (27.0-33.0); Mean Corpuscular Volume 91.5 fL (80.0-98.0); Monocytes Absolute Auto 0.6 X10*3/uL (0.1-1.2); Monocytes Percent Auto 6.8 % (2-11); Neutrophils Percent Auto 58.5 % (45-73); Platelet Count 304 X10*3/uL (160-400); Red Cell Distribution Width 14.3 % (11.0-16.0); White Blood Count 8.5 X10*3/uL (4.8-10.8)
[2021-09-12 12:26] LABS: Alanine Aminotransferase 27 U/L (0-40); Albumin Level 3.8 g/dL (3.5-5.0); Alkaline Phosphatase 125 U/L (39-117); Anion Gap 13 (12-20); Aspartate Amino Transferase 19 U/L (5-37); Bilirubin Direct < 0.2 mg/dL (0.0-0.5); Bilirubin Total 0.3 mg/dL (0.0-1.0); Blood Urea Nitrogen 12 mg/dL (9-16); Calcium 9.2 mg/dL (8.4-10.2); Carbon Dioxide 24 mmol/L (22-29); Chloride 104 mmol/L (96-108); Creatinine Clr Calc Pharmacy 63.7; Estimated Glomerular Filt Rate > 60; Glucose Random 82 mg/dL (60-115); Potassium 4.2 mmol/L (3.3-5.1); Sodium 137 mmol/L (135-145); Total Protein 6.5 g/dL (6.5-8.0)
[2021-09-12 12:32] LABS: Troponin-I High Sensitivity 4.4 ng/L (<3.5-35.0)
[2021-09-12 12:35] LABS: INTERNATIONAL NORM RATIO 0.9 (0.9-1.1); Prothrombin Time 10.3 SEC (9.9-13.0)
[2021-09-12 12:56] LABS: B Type Natriuretic Peptide 31 pg/mL (<100)
[2021-09-12 14:40] LABS: COVID-19 Test Negative (Negative)
--- NOTE | 2021-09-12 14:47 | PHA.MEDREC ---
med rec complete. patient unsure of some meds, he hasnt been taking plavix but is unsure if that was supposed to be stopped, some meds he has run out of. Pharmacy Consult ? Medication Reconciliation Pharmacy has completed the medication reconciliation.
== END 2021-09-13 02:13 | disposition left against medical advice (07) ==
PROVIDERS: Physician Assistant Medical; Emergency Provider Emergency Medicine; PCP Internal Medicine
DX: R55 Syncope and collapse (principal); R07.89 Other chest pain; R00.2 Palpitations; Z20.822 Contact with and (suspected) exposure to COVID-19; I10 Essential (primary) hypertension; I25.2 Old myocardial infarction; F17.200 Nicotine dependence, unspecified, uncomplicated; Z95.0 Presence of cardiac pacemaker; Z79.02 Long term (current) use of antithrombotics/antiplatelets; Z79.899 Other long term (current) drug therapy; Z86.73 Personal history of transient ischemic attack (TIA), and cerebral infarction without residual deficits
CPT/HCPCS: 36415; 70450; 80048; 80076; 83880; 84484; 85025; 85610; 87635; 93005; 99284

== ENCOUNTER → 2021-09-23 11:57 | Outpatient (BNVA) | payer MEDICARE, MEDICAID, SELFPAY | PROVIDERS: PCP Internal Medicine; Referring Provider Internal Medicine; Visit Provider Internal Medicine Cardiovascular Disease | DX: I48.0 Paroxysmal atrial fibrillation (principal) | CPT/HCPCS: 99212 ==

== ENCOUNTER 2021-09-24 08:00 | Inpatient (IN) | payer MEDICARE, MEDICAID, SELFPAY ==
[2021-09-24] VITALS (8 sets, daily range): BP systolic 120–139; BP diastolic 59–86; PULSE 59–83; RESP 12–20; TEMP 36.3–36.7; O2SAT 93–99; BMI 20.3; BMI 20.9
--- NOTE | 2021-09-24 | ECG_ITS ---
Test Reason : dizziness Blood Pressure : / mmHG Vent. Rate : 063 BPM Atrial Rate : 063 BPM P-R Int : 146 ms QRS Dur : 146 ms QT Int : 412 ms P-R-T Axes : 111 -70 105 degrees QTc Int : 422 ms Atrial-sensed ventricular-paced rhythm Biventricular pacemaker detected Abnormal ECG When compared with ECG of 24-SEP-2021 08:09, Vent. rate has decreased BY 17 BPM Referred By: Vale Mcmillan Electronically Signed By:Bernard Arnold
--- NOTE | 2021-09-24 | ECG_ITS ---
Test Reason : CHEST PAIN Blood Pressure : / mmHG Vent. Rate : 060 BPM Atrial Rate : 060 BPM P-R Int : 156 ms QRS Dur : 142 ms QT Int : 456 ms P-R-T Axes : 062 253 078 degrees QTc Int : 456 ms AV dual-paced rhythm Biventricular pacemaker detected Abnormal ECG When compared with ECG of 24-SEP-2021 19:12, No significant change was found Referred By: Nevaeh Hernandez Electronically Signed By:Bernadr Arnold
--- NOTE | ~2021-09-24 | XR_ITS ---
EXAMINATION: XR CHEST CLINICAL INFORMATION: Dizziness COMPARISON: May 17, 2020 TECHNIQUE: AP portable view of the chest was obtained. FINDINGS: No significant abnormality is noted involving the heart, lungs, mediastinum, bony thorax or soft tissues. AICD in place. XR/XR chest 1V IMPRESSION: No acute disease.
--- NOTE | 2021-09-24 08:11 | ECG_ITS ---
Test Reason : DIZZINESS Blood Pressure : / mmHG Vent. Rate : 080 BPM Atrial Rate : 080 BPM P-R Int : 152 ms QRS Dur : 120 ms QT Int : 380 ms P-R-T Axes : 070 106 080 degrees QTc Int : 439 ms Atrial-sensed ventricular-paced rhythm Biventricular pacemaker detected Abnormal ECG When compared with ECG of 12-SEP-2021 11:36, Vent. rate has increased BY 7 BPM Referred By: Generic ED Physician Electronically Signed By:Bernard Arnold
[2021-09-24 08:41] LABS: MANUAL DIFF FLAG NO
[2021-09-24 08:44] LABS: Basophils Absolute Auto 0.1 X10*3/uL (0.0-0.2); Eosinophils Absolute Auto 0.3 X10*3/uL (0.0-0.4); Eosinophils Percent Auto 3.6 % (0-4); Hematocrit 43.6 % (42.0-52.0); Hemoglobin 14.5 g/dl (14.0-18.0); Imm Gran Abs Auto 0.04 X10*3/uL (0.00-0.03); Imm Gran Pct Auto 0.5 % (0.0-0.4); Lymphocytes Absolute Auto 2.2 X10*3/uL (1.2-4.9); Lymphocytes Percent Auto 24.9 % (20-40); Mean Corpuscular HGB Conc 33.3 g/dl (31.0-36.0); Mean Corpuscular Hemoglobin 30.3 pg (27.0-33.0); Mean Corpuscular Volume 91.2 fL (80.0-98.0); Mean Platelet Volume 10.8 fL (9.4-12.4); Monocytes Absolute Auto 0.6 X10*3/uL (0.1-1.2); Monocytes Percent Auto 7.1 % (2-11); Neutrophils Absolute Auto 5.5 x10*3/uL (2.0-8.3); Neutrophils Percent Auto 62.9 % (45-73); Platelet Count 271 X10*3/uL (160-400); Red Blood Count 4.78 X10*6/uL (4.60-5.80); Red Cell Distribution Width 14.6 % (11.0-16.0); White Blood Count 8.7 X10*3/uL (4.8-10.8)
[2021-09-24 09:07] LABS: Alanine Aminotransferase 23 U/L (0-40); Alkaline Phosphatase 127 U/L (39-117); Anion Gap 13 (12-20); Aspartate Amino Transferase 16 U/L (5-37); Bilirubin Total 0.3 mg/dL (0.0-1.0); Blood Urea Nitrogen 10 mg/dL (9-16); Calcium 9.2 mg/dL (8.4-10.2); Carbon Dioxide 25 mmol/L (22-29); Chloride 103 mmol/L (96-108); Creatinine Clr Calc Pharmacy 59.5; Estimated Glomerular Filt Rate > 60; Glucose Random 97 mg/dL (60-115); Potassium 3.8 mmol/L (3.3-5.1); Sodium 137 mmol/L (135-145); Total Protein 6.5 g/dL (6.5-8.0)
[2021-09-24 09:13] LABS: Troponin-I High Sensitivity 11.1 ng/L (<3.5-35.0)
[2021-09-24 09:14] LABS: COVID-19 Test Negative (Negative); IDNOW Serial# 9DD0AD1C
--- NOTE | 2021-09-24 09:38 | ED_ITS ---
HPI - General Adult General Chief complaint: Dizziness Stated complaint: rapid heart beat Time Seen by Provider: 09/24/21 09:21 Source: patient Mode of arrival: ambulatory Limitations: no limitations History of Present Illness HPI narrative: Patient comes to the emergency room to start the admission process, patient needs a loading dose of sotalol. Patient was sent here by Dr. Arnold. Patient states that he has been having runs tachycardia, palpitations and dizziness. Patient has a defibrillator. Yesterday he was seen at the cardiology office. Seems that the device was interrogated and the patient has had multiple runs of atrial fibrillation. Patient is already on Eliquis. Patient will be started on sotalol, the 1st dose needs to be done in an inpatient setting. At this time, patient states that he has no symptoms. Related Data Home Medications Medication Instructions Recorded Confirmed gabapentin 300 mg capsule 300 mg PO DAILY@1630 05/16/20 09/24/21 omeprazole 20 mg capsule,delayed 20 mg PO DAILY 05/16/20 09/24/21 release albuterol sulfate 90 mcg/actuation 2 puff INHALATION Q4H PRN 08/25/20 09/24/21 aerosol inhaler losartan 50 mg tablet 50 mg PO DAILY 06/17/21 09/24/21 rosuvastatin 40 mg tablet 40 mg PO DAILY 06/17/21 09/24/21 fluticasone fur. 100 mcg-umeclid 1 inh INHALATION DAILY 09/12/21 09/24/21 62.5 mcg-vilant 25 mcg inhalat.powder (Trelegy Ellipta) Previous Rx's Medication Instructions Recorded nitroglycerin 0.4 mg sublingual 0.4 mg SUBLINGUAL Q5M PRN #60 tab 06/10/21 tablet apixaban 5 mg tablet (Eliquis) 5 mg PO BID #60 tab 09/23/21 Allergies Allergy/AdvReac Type Severity Reaction Status Date / Time cat dander [CATS] Allergy Unknown UNKNOWN Verified 09/23/21 12:24 Review of Systems Review of Systems: Constitutional : No Weight loss, No Fever, No Chills, No Night Sweats, No Fatigue, No Malaise ENT/Mouth : No Hearing loss, No Ear Pain, No Nasal Congestion, No Sinus Pain, No Hoarseness, No sore throat, No Rhinorrhea, No Swallowing Difficulty Eyes: No Eye Pain, No Swelling, No Redness, No Foreign Body, No Discharge, No Vision Changes Cardiovascular : No Chest Pain, No SOB, No Dyspnea on Exertion, No Orthopnea, No Edema, complaining of intermittent palpitations Respiratory : No Cough, No Sputum, No Wheezing, No Smoke Exposure, No Dyspnea Gastrointestinal : No Nausea, No Vomiting, No Diarrhea, No Constipation, No abdominal Pain, No Hematochezia, No Melena Genitourinary : no irregular bleeding, No Dysuria, No Urinary Frequency, No Hematuria, No Urinary Incontinence, No Urgency, No Flank Pain, No Urinary Flow Changes, No Hesitancy Musculoskeletal : No joint pain, No Myalgias, No Joint Swelling Skin : No Skin Lesions, No rash Neuro : No Weakness, No Numbness, No Paresthesias, No Loss of Consciousness, No Dizziness, No Headache Psych : No Anxiety/Panic, No Depression, No SI/HI/AH/VH, No Social Issues, Heme/Lymph: No Bruising, No Bleeding,No Lymphadenopathy Endocrine : No Polyuria, No Polydipsia, No Temperature Intolerance [facility] Past Medical History Medical History Coronary artery disease CVA (cerebral vascular accident) HTN (hypertension) Myocardial infarction NICM (nonischemic cardiomyopathy) Uncontrolled hypertension Surgical History History of back surgery History of cholecystectomy Hx of cardiac catheterization Family History Family History Father No problems noted. Social History Social History (Updated 09/23/21 @ 12:20 by LI Mendes) Alcohol intake: current Alcohol intake frequency: holidays/special occasions only Patient Tobacco Use Status: Current everyday Tobacco user Tobacco use type: Cigarette Cigarette Packs Per Day: 0.25 Cigarettes Per Day: 6 Years Smoked: 54 Use of substances other than those prescribed or required for medical reasons: No Advance Directives: Yes Advance Directives Information Provided: No Advance Directives on File: No Current occupational status: retired Physical Exam Vital Signs: Vital Signs: Last Vital Signs Temp 98.1 F 09/24/21 08:19 Pulse 70 09/24/21 09:57 Resp 18 09/24/21 09:57 BP 133/86 09/24/21 09:57 Pulse Ox 97 09/24/21 09:57 BMI result Body Mass Index 20.3 Course Course Course Narrative: Per Dr. Arnold, patient received 2 g of magnesium, 40 mEq of potassium. Patient will be started on sotalol 80 mg loading dose. Patient will be a dmitted, he will probably have to stay in hospital for 3 days Patient remains asymptomatic. Medical Decision Making Lab Data Result diagrams: 09/24/21 08:35 09/24/21 08:34 Labs: Lab Results 09/24/21 09/24/21 09/24/21 Range/Units 08:34 08:34 08:35 WBC 8.7 (4.8-10.8) X10*3/uL RBC 4.78 (4.60-5.80) X10*6/uL Hgb 14.5 (14.0-18.0) g/dl Hct 43.6 (42.0-52.0) % MCV 91.2 (80.0-98.0) fL MCH 30.3 (27.0-33.0) pg MCHC 33.3 (31.0-36.0) g/dl RDW 14.6 (11.0-16.0) % Plt Count 271 (160-400) X10*3/uL MPV 10.8 (9.4-12.4) fL Immature Gran % (Auto) 0.5 H (0.0-0.4) % Neut % (Auto) 62.9 (45-73) % Lymph % (Auto) 24.9 (20-40) % [place] % (Auto) 7.1 (2-11) % Eos % (Auto) 3.6 (0-4) % Baso % (Auto) 1.0 (0-2) % Lymph # (Auto) 2.2 (1.2-4.9) X10*3/uL [place] # (Auto) 0.6 (0.1-1.2) X10*3/uL Eos # (Auto) 0.3 (0.0-0.4) X10*3/uL Baso # (Auto) 0.1 (0.0-0.2) X10*3/uL Abs Immat Gran (auto) 0.04 H (0.00-0.03) X10*3/uL Absolute Neuts (auto) 5.5 (2.0-8.3) x10*3/uL Absolute Nucleated RBC 0.000 (0.0-0.012) X10*3/uL Nucleated RBC % (auto) 0.0 (0.0-0.2) /100WBC Sodium 137 (135-145) mmol/L Potassium 3.8 (3.3-5.1) mmol/L Chloride 103 (96-108) mmol/L Carbon Dioxide 25 (22-29) mmol/L Anion Gap 13 (12-20) BUN 10 (9-16) mg/dL Creatinine 1.19 (0.5-1.4) mg/dL Estim Creat Clear Calc 59.5 Estimated GFR > 60 Random Glucose 97 (60-115) mg/dL Calcium 9.2 (8.4-10.2) mg/dL Magnesium 1.9 (1.6-2.6) mg/dL Total Bilirubin 0.3 (0.0-1.0) mg/dL AST 16 (5-37) U/L ALT 23 (0-40) U/L Alkaline Phosphatase 127 H (39-117) U/L Troponin I High Sens 11.1 D (<3.5-35.0) ng/L Total Protein 6.5 (6.5-8.0) g/dL Albumin 4.0 (3.5-5.0) g/dL COVID-19 (ROXANN) (Negative) COVID-19 Clin Com 09/24/21 Range/Units 08:35 WBC (4.8-10.8) X10*3/uL RBC (4.60-5.80) X10*6/uL Hgb (14.0-18.0) g/dl Hct (42.0-52.0) % MCV (80.0-98.0) fL MCH (27.0-33.0) pg MCHC (31.0-36.0) g/dl RDW (11.0-16.0) % Plt Count (160-400) X10*3/uL MPV (9.4-12.4) fL Immature Gran % (Auto) (0.0-0.4) % Neut % (Auto) (45-73) % Lymph % (Auto) (20-40) % [place] % (Auto) (2-11) % Eos % (Auto) (0-4) % Baso % (Auto) (0-2) % Lymph # (Auto) (1.2-4.9) X10*3/uL [place] # (Auto) (0.1-1.2) X10*3/uL Eos # (Auto) (0.0-0.4) X10*3/uL Baso # (Auto) (0.0-0.2) X10*3/uL Abs Immat Gran (auto) (0.00-0.03) X10*3/uL Absolute Neuts (auto) (2.0-8.3) x10*3/uL Absolute Nucleated RBC (0.0-0.012) X10*3/uL Nucleated RBC % (auto) (0.0-0.2) /100WBC Sodium (135-145) mmol/L Potassium (3.3-5.1) mmol/L Chloride (96-108) mmol/L Carbon Dioxide (22-29) mmol/L Anion Gap (12-20) BUN (9-16) mg/dL Creatinine (0.5-1.4) mg/dL Estim Creat Clear Calc Estimated GFR Random Glucose (60-115) mg/dL Calcium (8.4-10.2) mg/dL Magnesium (1.6-2.6) mg/dL Total Bilirubin (0.0-1.0) mg/dL AST (5-37) U/L ALT (0-40) U/L Alkaline Phosphatase (39-117) U/L Troponin I High Sens (<3.5-35.0) ng/L Total Protein (6.5-8.0) g/dL Albumin (3.5-5.0) g/dL COVID-19 (ROXANN) Negative (Negative) COVID-19 Clin Com See Note Discharge Plan Discharge Clinical Impression: Atrial fibrillation Patient Disposition: Admitted As Inpatient Prescriptions: No Action nitroglycerin 0.4 mg tablet, sublingual 0.4 mg sublingual Q5M PRN (Reason: chest pain) Qty: 60 2RF Rx Instructions: do not exceed 3 doses per episode Eliquis 5 mg tablet 5 mg PO BID Qty: 60 5RF Trelegy Ellipta 100-62.5-25 mcg blister with device 1 inh inhalation DAILY 0RF gabapentin 300 mg capsule 300 mg PO DAILY@1630 0RF omeprazole 20 mg capsule,delayed release(DR/EC) 20 mg PO DAILY 0RF albuterol sulfate 90 mcg/actuation HFA aerosol inhaler 2 puff inhalation Q4H PRN (Reason: Respiratory Distress) 0RF rosuvastatin 40 mg tablet 40 mg PO DAILY 0RF losartan 50 mg tablet 50 mg PO DAILY 0RF
[2021-09-24 09:55] LABS: Magnesium 1.9 mg/dL (1.6-2.6)
[2021-09-24] MEDS: Potassium Chloride Packet 20 MEQ PACKET 40 MEQ PO (09:59)
[2021-09-24] MEDS: Magnesium Sulfate/H2O 2 GM/50 ML PIGGYBACK IV (09:59)
--- NOTE | 2021-09-24 10:40 | PHA.MEDREC ---
Pharmacy Consult ? Medication Reconciliation Pharmacy has completed the medication reconciliation. Patient reports he just takes his medications and does not know the names. Patient had an outdated list. Patient therefore is not the best historain. I tried to list of his previous record and medication from the claim history. Patient could confirm he is no longer taking Plavix. Patient does not recognize losartan. This was filled and picked up in August 2021, and prescribed by Dr. Bone. Patient is unsure if he is taking carvedilol, this was last filled by [facility] on 11/23/2019 and [facility] on 03/03/21 x 90 days, therefore most likely not taking even if he is suppose to be taking it. Patient reports taking amlodipine is seems confident about it however it was last filled at [facility] 11/14/2019 and [facility] on 05/04/21 x 90, therefore patient most likely has not been taking it. I had to use clinical judgment to determine which medications the patient has been taking at home. Johanna Juarez, YaseminD
--- NOTE | 2021-09-24 13:42 | PC.NURSE ---
no change in assessment. per doc sultana pt to recieve repeat EKG 2 hrs after first sotolol. Due aprox 1540. pt denies SOB, CO, dizziness............................... paced on monitor in 60;s
[2021-09-24] MEDS: Sotalol HCL 80 MG TABLET PO ×2 (13:43→21:02)
--- NOTE | 2021-09-24 13:44 | P.HPHOSP_ITS ---
History of Present Illness Date of Service: 09/24/21 Attending physician on admission: Saroj Larkin Chief Complaint: palpitations, [place] This is a 66 year old male with multiple medical issues who was sent to the ED by cardiology. He was seen in the [facility] office yesterday due to palp itations and shortness of breath with exertion. He has been having episodes of tachycardia noted on his apple watch. He was noted to have multiple runs of atrial fibrillation when his device was interrogated. He was sent in for sotalol loading. He denies any chest pain or palpitations right now. Of note, he was admitted to the hospital at the end of August for the same but he left AMA at that time. In the ED, his lab work was unremarkable. Review of Systems Review of Systems: Yes all other systems are reviewed and are negative Constitutional: Constitutional: Denies chills and Denies fever(s) Cardiovascular: Cardiovascular: Denies chest pain and Reports dyspnea on exertion Respiratory: Respiratory: Reports dyspnea on exertion Gastrointestinal: Gastrointestinal: Denies nausea and Denies vomiting [facility] Medical History (Updated 09/24/21 @ 13:51 by HEATHER Partida) Atrial flutter COPD (chronic obstructive pulmonary disease) Coronary artery disease CVA (cerebral vascular accident) HTN (hypertension) ICD (implantable cardioverter-defibrillator) in place Myocardial infarction NICM (nonischemic cardiomyopathy) Pulmonary nodules RADHA (renal artery stenosis) TIA (transient ischemic attack) Uncontrolled hypertension Functional capacity: independent ambulation Family History Father No problems noted. Pertinent family history: Denies family history of CAD Surgical History (Updated 09/24/21 @ 13:51 by HEATHER Partida) History of back surgery History of cholecystectomy Hx of cardiac catheterization S/P angioplasty with stent Social History Alcohol intake: current Alcohol intake frequency: holidays/special occasions only Patient Tobacco Use Status: Current everyday Tobacco user Tobacco use type: Cigarette Cigarette Packs Per Day: 0.25 Cigarettes Per Day: 6 Years Smoked: 54 Use of substances other than those prescribed or required for medical reasons: No Advance Directives: Yes Advance Directives Information Provided: No Advance Directives on File: No Current occupational status: retired [id number] Allergies Allergy/AdvReac Type Severity Reaction Status Date / Time cat dander [CATS] Allergy Unknown UNKNOWN Verified 09/23/21 12:24 Active Medications: Current Medications Acetaminophen (Acetaminophen 325 Mg Tablet) 650 mg PO Q6H PRN PRN Reason: Pain, Mild (Pain Scale 1-3) Albuterol Sulfate (Albuterol Sulfate 90 Mcg 8 Gm Inhaler) 2 puff INHALE Q4H PRN PRN Reason: Respiratory Distress Apixaban (Apixaban 5 Mg Tablet) 5 mg PO BID [facility] Docusate Sodium (Docusate Sodium 100 Mg Capsule) 100 mg PO DAILY PRN PRN Reason: Constipation Gabapentin (Gabapentin 300 Mg Capsule) 300 mg PO DAILY@1630 [facility] Non-Formulary Medication (Glaxjlfmsli-Dqsbmgfwk-Focfesyh [Trelegy Ellipta]) 1 inhalation INHALE DAILY [facility] Non-Formulary Medication (Rosuvastatin) 40 mg PO DAILY [facility] Omeprazole (Omeprazole 20 Mg Capsule.) 20 mg PO DAILY [facility] Pharmacy Consult (Consult Rx Perform Med Rec) 1 each MISCELLANE ONCE PRN PRN Reason: Consult order Sodium Chloride (0.9 % Sodium Chloride Flush 3 Ml Syringe) 3 ml IVFLUSH QSHIFT [facility] Sotalol HCl (Sotalol Hcl 80 Mg Tablet) 80 mg PO BID [facility] Home Medications Medication Instructions Recorded Confirmed Last Taken Type gabapentin 300 mg capsule 300 mg PO DAILY@1630 05/16/20 09/24/21 09/23/21 History omeprazole 20 mg capsule,delayed 20 mg PO DAILY 05/16/20 09/24/21 09/24/21 History release albuterol sulfate 90 mcg/actuation 2 puff INHALATION Q4H PRN 08/25/20 09/24/21 Unknown History aerosol inhaler losartan 50 mg tablet 50 mg PO DAILY 06/17/21 09/24/21 09/24/21 History rosuvastatin 40 mg tablet 40 mg PO DAILY 06/17/21 09/24/21 09/24/21 History fluticasone fur. 100 mcg-umeclid 1 inh INHALATION DAILY 09/12/21 09/24/21 09/23/21 History 62.5 mcg-vilant 25 mcg inhalat.powder (Trelegy Ellipta) Physical Exam Vital Signs and Narrative: Vital Signs: Last Vital Signs Temp 98.1 F 09/24/21 08:19 Pulse 61 09/24/21 13:41 Resp 18 09/24/21 13:41 BP 136/75 09/24/21 13:41 Pulse Ox 99 09/24/21 13:41 BMI result Body Mass Index 20.3 Const: General: cooperative, comfortable, no acute distress, alert and awake Nutritional Appearance: thin Resp: Other: diminished, no wheezing Effort & Inspection: normal respiratory effort and able to speak in complete sentences Cardio: Jugular venous distension: no JVD Heart sounds: S1 normal heart sound present and S2 normal heart sound present GI: Palpation (GI): Soft to palpation and Tenderness to palpation present (GI) Extrem: Other: able to move all 4 extremities spontaneously; no leg edema Results Labs CBC and Chem 7: 09/24/21 08:35 09/24/21 08:34 Labs: Laboratory Results - last 24 hr 09/24/21 09/24/21 09/24/21 08:34 08:35 08:35 MCV 91.2 MCH 30.3 MCHC 33.3 RDW 14.6 Plt Count 271 MPV 10.8 Immature Gran % (Auto) 0.5 H Neut % (Auto) 62.9 Lymph % (Auto) 24.9 [place] % (Auto) 7.1 Eos % (Auto) 3.6 Baso % (Auto) 1.0 Lymph # (Auto) 2.2 [place] # (Auto) 0.6 Eos # (Auto) 0.3 Baso # (Auto) 0.1 Abs Immat Gran (auto) 0.04 H Absolute Neuts (auto) 5.5 Absolute Nucleated RBC 0.000 Nucleated RBC % (auto) 0.0 Anion Gap 13 Estim Creat Clear Calc 59.5 Estimated GFR > 60 Random Glucose 97 Calcium 9.2 Magnesium 1.9 Total Bilirubin 0.3 AST 16 ALT 23 Alkaline Phosphatase 127 H Total Protein 6.5 Albumin 4.0 COVID-19 (ROXANN) Negative COVID-19 Clin Com See Note Imaging Radiologist's Impressions: Impressions Chest X-Ray 09/24/21 08:39 IMPRESSION: No acute disease. Assessment and Plan (1) PAF (paroxysmal atrial fibrillation): Status: Acute Plan This is a 66 year old male with h/o CAD, NICM s/p AICD, HTN, RADHA, COPD, PVD, afib on Eliquis sent in from cardiology office for sotalol loading due to recnt episodes of symptomatic afib with RVR. Paroxysmal atrial fibrillation with episodes of RVR plan to start sotalol load tele monitoring follow EKG 2 hours after each sotalol dose. if QTC increases more than 15% or goes above 500 contact cardiology carvedilol has not been filled since February Continue AC with Eliquis Cardiology consult follow electrolytes COPD no exacerbation continue home inhalers gerd continue omeprazole CAD stable. no chest pain at this time HLD continue statin DVT ppx - eliquis code status - Full code HCP - niece and son attending - dr. larkin Quality Stroke Does the patient have a stroke diagnosis?: No VTE Prior VTE?: No VTE Risk Level:: Medical - moderate - high VTE Device Contraindication: Treatment Not Indicated VTE Drug Contraindication: N/A - Med Ordered
--- NOTE | 2021-09-24 15:31 | PC.NURSE ---
Pt continues to deny all sx. resting quietly. paced rhythm on monitor. skin pwd. unlabored resp. awaits bed on floor.
--- NOTE | 2021-09-24 16:22 | P.CONCA_ITS ---
History of Present Illness History of Present Illness Date of Service: 09/24/21 Requesting physician: Nessa Casas Chief complaint: Atrial Fibrillation Narrative: 66-year-old gentleman was background history of coronary artery disease status post LAD PCI, previous cardiomyopathy which improved with Bi V pacing, renal artery stenosis status post stenting and CVA. He has been experiencing palpitations and device interrogation has shown multiple runs of atrial fibrillation. He was seen in the office and after discussion we will plan to bring him in for sotalol loading. He is here for that. He has received p.o. potassium and 2 g of magnesium. She is feeling fine right now. [facility] Past Medical History Medical History (Updated 09/24/21 @ 13:51 by HEATHER Partida) Atrial flutter COPD (chronic obstructive pulmonary disease) Coronary artery disease CVA (cerebral vascular accident) HTN (hypertension) ICD (implantable cardioverter-defibrillator) in place Myocardial infarction NICM (nonischemic cardiomyopathy) Pulmonary nodules RADHA (renal artery stenosis) TIA (transient ischemic attack) Uncontrolled hypertension Functional capacity: independent ambulation Family History Family History Father No problems noted. Surgical History Surgical History (Updated 09/24/21 @ 13:51 by HEATHER Partida) History of back surgery History of cholecystectomy Hx of cardiac catheterization S/P angioplasty with stent Social History Social History Alcohol intake: current Alcohol intake frequency: holidays/special occasions only Patient Tobacco Use Status: Current everyday Tobacco user Tobacco use type: Cigarette Cigarette Packs Per Day: 0.25 Cigarettes Per Day: 6 Years Smoked: 54 Use of substances other than those prescribed or required for medical reasons: No Advance Directives: Yes Advance Directives Information Provided: No Advance Directives on File: No Current occupational status: retired Meds Allergies Allergy/AdvReac Type Severity Reaction Status Date / Time cat dander [CATS] Allergy Unknown UNKNOWN Verified 09/23/21 12:24 Active Medications: Current Medications Acetaminophen (Acetaminophen 325 Mg Tablet) 650 mg PO Q6H PRN PRN Reason: Pain, Mild (Pain Scale 1-3) Albuterol Sulfate (Albuterol Sulfate 90 Mcg 8 Gm Inhaler) 2 puff INHALE Q4H PRN PRN Reason: Respiratory Distress Apixaban (Apixaban 5 Mg Tablet) 5 mg PO BID [facility] Atorvastatin Calcium (Atorvastatin Calcium 80 Mg Tablet) 80 mg PO DAILY [facility] Docusate Sodium (Docusate Sodium 100 Mg Capsule) 100 mg PO DAILY PRN PRN Reason: Constipation Gabapentin (Gabapentin 300 Mg Capsule) 300 mg PO DAILY@1630 [facility] Non-Formulary Medication (Ktnkiukltmj-Xatwqhiic-Bhxvbhku [Trelegy Ellipta]) 1 inhalation INHALE DAILY [facility] Omeprazole (Omeprazole 20 Mg Capsule.Dr) 20 mg PO DAILY@0630 [facility] Pharmacy Consult (Consult Rx Perform Med Rec) 1 each MISCELLANE ONCE PRN PRN Reason: Consult order Sodium Chloride (0.9 % Sodium Chloride Flush 3 Ml Syringe) 3 ml IVFLUSH QSHIFT [facility] Last Admin: 09/24/21 16:22 Dose: Not Given Documented by: Sotalol HCl (Sotalol Hcl 80 Mg Tablet) 80 mg PO BID [facility] Home Medications Medication Instructions Recorded Confirmed Last Taken Type gabapentin 300 mg capsule 300 mg PO DAILY@1630 05/16/20 09/24/21 09/23/21 History omeprazole 20 mg capsule,delayed 20 mg PO DAILY 05/16/20 09/24/21 09/24/21 History release albuterol sulfate 90 mcg/actuation 2 puff INHALATION Q4H PRN 08/25/20 09/24/21 Unknown History aerosol inhaler losartan 50 mg tablet 50 mg PO DAILY 06/17/21 09/24/21 09/24/21 History rosuvastatin 40 mg tablet 40 mg PO DAILY 06/17/21 09/24/21 09/24/21 History fluticasone fur. 100 mcg-umeclid 1 inh INHALATION DAILY 09/12/21 09/24/21 09/23/21 History 62.5 mcg-vilant 25 mcg inhalat.powder (Trelegy Ellipta) Physical Exam Vital Signs: Vital Signs: Last Vital Signs Temp 97.9 F 09/24/21 15:46 Pulse 62 09/24/21 15:46 Resp 18 09/24/21 15:46 BP 132/74 09/24/21 15:46 Pulse Ox 96 09/24/21 15:46 BMI result Body Mass Index 20.3 GENERAL APPEARANCE: in no acute distress, well developed, well nourished. ? HEENT: unremarkable. ? HEAD: normocephalic, atraumatic. ? NECK/THYROID:? no carotid bruit, no jugular venous distention. ? SKIN: no suspicious lesions, warm and dry. ? HEART: no murmurs, regular rate and rhythm, S1, S2 normal. ? LUNGS: clear to auscultation bilaterally. ? ABDOMEN: normal, bowel sounds present, soft, nontender, nondistended. ? EXTREMITIES:? no edema. ? NEUROLOGIC: nonfocal,alert and oriented. ? PSYCH:? mood/affect full range. Objective Labs and Meds Result diagrams: 09/24/21 08:35 09/24/21 08:34 Lab results: Laboratory Results - last 24 hr 09/24/21 09/24/21 09/24/21 08:34 08:34 08:35 WBC 8.7 RBC 4.78 Hgb 14.5 Hct 43.6 MCV 91.2 MCH 30.3 MCHC 33.3 RDW 14.6 Plt Count 271 MPV 10.8 Immature Gran % (Auto) 0.5 H Neut % (Auto) 62.9 Lymph % (Auto) 24.9 [place] % (Auto) 7.1 Eos % (Auto) 3.6 Baso % (Auto) 1.0 Lymph # (Auto) 2.2 [place] # (Auto) 0.6 Eos # (Auto) 0.3 Baso # (Auto) 0.1 Abs Immat Gran (auto) 0.04 H Absolute Neuts (auto) 5.5 Absolute Nucleated RBC 0.000 Nucleated RBC % (auto) 0.0 Sodium 137 Potassium 3.8 Chloride 103 Carbon Dioxide 25 Anion Gap 13 BUN 10 Creatinine 1.19 Estim Creat Clear Calc 59.5 Estimated GFR > 60 Random Glucose 97 Calcium 9.2 Magnesium 1.9 Total Bilirubin 0.3 AST 16 ALT 23 Alkaline Phosphatase 127 H Troponin I High Sens 11.1 D Total Protein 6.5 Albumin 4.0 COVID-19 (ROXANN) COVID-19 Clin Com 09/24/21 08:35 WBC RBC Hgb Hct MCV MCH MCHC RDW Plt Count MPV Immature Gran % (Auto) Neut % (Auto) Lymph % (Auto) [place] % (Auto) Eos % (Auto) Baso % (Auto) Lymph # (Auto) [place] # (Auto) Eos # (Auto) Baso # (Auto) Abs Immat Gran (auto) Absolute Neuts (auto) Absolute Nucleated RBC Nucleated RBC % (auto) Sodium Potassium Chloride Carbon Dioxide Anion Gap BUN Creatinine Estim Creat Clear Calc Estimated GFR Random Glucose Calcium Magnesium Total Bilirubin AST ALT Alkaline Phosphatase Troponin I High Sens Total Protein Albumin COVID-19 (ROXANN) Negative COVID-19 Clin Com See Note Imaging Radiologist's impression: Impressions Chest X-Ray 09/24/21 08:39 IMPRESSION: No acute disease. Assessment and Plan (1) PAF (paroxysmal atrial fibrillation): Status: Acute Plan 66 male here for sotalol loading for PAF. Paced rhythm Asymptomatic. Give Sotalol 80 mg and check QTc 2 hours later. If 15% rise from baseline or QTc >500 msec hold the next dose and discuss with me. Will repeat K and Mg in the morning. Thank you for allowing me to participate in the care of your patient. Please feel free to contact me if you have any questions. Procedures Date of Service Date of Service: 09/24/21
[2021-09-24] MEDS: Gabapentin 300 MG CAPSULE PO (17:50)
--- NOTE | 2021-09-24 17:52 | PC.NURSE ---
just now complaining of chest heaviness
--- NOTE | 2021-09-24 19:10 | ECG_ITS ---
Test Reason : CHEST PAIN Blood Pressure : / mmHG Vent. Rate : 060 BPM Atrial Rate : 060 BPM P-R Int : 156 ms QRS Dur : 142 ms QT Int : 450 ms P-R-T Axes : 061 254 082 degrees QTc Int : 450 ms Poor data quality, interpretation may be adversely affected AV dual-paced rhythm Biventricular pacemaker detected Abnormal ECG When compared with ECG of 24-SEP-2021 15:37, Vent. rate has decreased BY 3 BPM Referred By: Nevaeh Hernandez Electronically Signed By:Bernard Arnold
--- NOTE | 2021-09-24 19:24 | PC.NURSE ---
Ekg given to Sallie DU
--- NOTE | 2021-09-24 20:26 | PC.NURSE ---
garrison jensen will call back for report.
[2021-09-24] MEDS: Apixaban 5 MG TABLET PO (21:07)
--- NOTE | 2021-09-24 21:08 | PC.NURSE ---
next ekg due at 2300 09/24/21 post sotolol given at 2100
[2021-09-24] MEDS: 0.9 % Sodium Chloride Flush 3 ML SYRINGE IVFLUSH (21:45)
--- NOTE | 2021-09-24 23:07 | ECG_ITS ---
Test Reason : 2 hours post sotalol Blood Pressure : / mmHG Vent. Rate : 060 BPM Atrial Rate : 060 BPM P-R Int : 154 ms QRS Dur : 142 ms QT Int : 450 ms P-R-T Axes : 008 252 080 degrees QTc Int : 450 ms AV dual-paced rhythm Biventricular pacemaker detected Abnormal ECG When compared with ECG of 24-SEP-2021 19:13, No significant change was found Referred By: Nevaeh Hernandez Electronically Signed By:Bernard Arnold
[2021-09-25] VITALS (7 sets, daily range): BP systolic 107–129; BP diastolic 55–77; PULSE 60–78; RESP 16–20; TEMP 36.5–37.1; O2SAT 95–97
[2021-09-25] MEDS: Omeprazole 20 MG CAPSULE.DR PO (06:02)
[2021-09-25 07:22] LABS: Anion Gap 10 (12-20); Blood Urea Nitrogen 11 mg/dL (9-16); Calcium 9.1 mg/dL (8.4-10.2); Carbon Dioxide 27 mmol/L (22-29); Chloride 105 mmol/L (96-108); Creatinine Clr Calc Pharmacy 65.7; Estimated Glomerular Filt Rate > 60; Glucose Random 101 mg/dL (60-115); Magnesium 2.2 mg/dL (1.6-2.6); Potassium 4.8 mmol/L (3.3-5.1); Sodium 137 mmol/L (135-145)
[2021-09-25] MEDS: Fluticasone/Vilanterol 100/25 BLST.W.DEV 1 PUFF INHALE (07:58)
--- NOTE | 2021-09-25 09:05 | MHC.CM.PN ---
CM met with Patient at bedside and addressed IMM with him, providing him with the original and placing a copy on the chart. Patient lives alone in an apartment and he is functionally independent and will drive himself home. PCP is Dr. Franck Chris and Patient has received Moderna Covid vax X3.
[2021-09-25] MEDS: Apixaban 5 MG TABLET PO ×2 (09:12→20:39)
[2021-09-25] MEDS: 0.9 % Sodium Chloride Flush 3 ML SYRINGE IVFLUSH ×3 (09:12→20:39)
[2021-09-25] MEDS: Sotalol HCL 80 MG TABLET PO ×2 (09:12→20:39)
[2021-09-25] MEDS: Atorvastatin Calcium 80 MG TABLET PO (09:12)
--- NOTE | 2021-09-25 11:15 | ECG_ITS ---
Test Reason : SOTALOL Blood Pressure : / mmHG Vent. Rate : 060 BPM Atrial Rate : 060 BPM P-R Int : 156 ms QRS Dur : 136 ms QT Int : 470 ms P-R-T Axes : 000 249 078 degrees QTc Int : 470 ms AV dual-paced rhythm Biventricular pacemaker detected Abnormal ECG When compared with ECG of 24-SEP-2021 23:15, No significant change was found Referred By: Vale Mcmillan Electronically Signed By:Bernard Arnold
--- NOTE | 2021-09-25 12:33 | HO.PM.IMPN ---
Subjective Subjective Date of Service: 09/25/21 Interval History: seen and examined this morning here for sotalol loading had episode of chest pain overnight with no other associate symptoms, now resolved no complaints this morning Review of Systems Review of Systems: Yes all other systems are reviewed and are negative Constitutional Constitutional: Denies chills and Denies fever(s) Cardiovascular Cardiovascular: Denies palpitations and Denies dyspnea on exertion Respiratory Respiratory: Denies dyspnea on exertion Gastrointestinal Gastrointestinal: Denies nausea and Denies vomiting Endocrine Endocrine: Denies palpitations Physical Exam Vital Signs: Vital Signs: Last Vital Signs Temp 98.8 F 09/25/21 11:24 Pulse 62 09/25/21 11:24 Resp 17 09/25/21 11:24 BP 118/77 09/25/21 11:24 Pulse Ox 97 09/25/21 11:24 BMI result Body Mass Index 20.9 Const: General: cooperative, comfortable and no acute distress Nutritional Appearance: thin Eyes: Pupils: Equal, round and reactive pupils present Resp: Effort & Inspection: normal respiratory effort and able to speak in complete sentences Cardio: Rate: regular rate Heart sounds: S1 normal heart sound present and S2 normal heart sound present GI: Inspection: No distended Palpation (GI): Soft to palpation and nontender Neuro: Cranial nerves: Yes Equal, round and reactive pupils present Extrem: Other: no leg edema Psych: Affect: normal affect Objective Data Active Medications Acetaminophen (Acetaminophen 325 Mg Tablet) 650 mg PO Q6H PRN PRN Reason: Pain, Mild (Pain Scale 1-3) Albuterol Sulfate (Albuterol Sulfate 90 Mcg 8 Gm Inhaler) 2 puff INHALE Q4H PRN PRN Reason: Respiratory Distress Apixaban (Apixaban 5 Mg Tablet) 5 mg PO BID [facility] Last Admin: 09/25/21 09:12 Dose: 5 mg Documented by: COLTON Atorvastatin Calcium (Atorvastatin Calcium 80 Mg Tablet) 80 mg PO DAILY [facility] Last Admin: 09/25/21 09:12 Dose: 80 mg Documented by: COLTON Docusate Sodium (Docusate Sodium 100 Mg Capsule) 100 mg PO DAILY PRN PRN Reason: Constipation Fluticasone/Vilanterol (Fluticasone/Vilanterol 100/25 Blst.W.Dev) 1 puff INHALE RDAILY [facility] Last Admin: 09/25/21 07:58 Dose: 1 puff Documented by: CHEY[place]NE Gabapentin (Gabapentin 300 Mg Capsule) 300 mg PO DAILY@1630 [facility] Last Admin: 09/24/21 17:50 Dose: 300 mg Documented by: TRISTA Omeprazole (Omeprazole 20 Mg Capsule.) 20 mg PO DAILY@0630 [facility] Last Admin: 09/25/21 06:02 Dose: 20 mg Documented by: CAYLA Pharmacy Consult (Consult Rx Perform Med Rec) 1 each MISCELLANE ONCE PRN PRN Reason: Consult order Sodium Chloride (0.9 % Sodium Chloride Flush 3 Ml Syringe) 3 ml IVFLUSH QSHIFT [facility] Last Admin: 09/25/21 09:12 Dose: 3 ml Documented by: COLTON Sotalol HCl (Sotalol Hcl 80 Mg Tablet) 80 mg PO BID [facility] Last Admin: 09/25/21 09:12 Dose: 80 mg Documented by: COLTON Tiotropium [place] (Tiotropium [place] 18 Mcg Cap.W.Dev) 1 puff INHALE RDAILY [facility] Last Admin: 09/25/21 07:57 Dose: 1 puff Documented by: CHEYENNE Labs CBC & Chem 7: 09/24/21 08:35 09/25/21 06:44 Labs: Laboratory Results - last 24 hr 09/25/21 06:44 Anion Gap 10 L Estim Creat Clear Calc 65.7 Estimated GFR > 60 Random Glucose 101 Calcium 9.1 Magnesium 2.2 Assessment and Plan (1) PAF (paroxysmal atrial fibrillation): Status: Acute Plan This is a 66 year old male with h/o CAD, NICM s/p AICD, HTN, RADHA, COPD, PVD, afib on Eliquis sent in from cardiology office for sotalol loading due to recnt episodes of symptomatic afib with RVR. Paroxysmal atrial fibrillation with episodes of RVR continue sotalol loading; needs 5 doses tele monitoring follow EKG 2 hours after each sotalol dose. if QTC increases more than 15% or goes above 500 contact cardiology carvedilol has not been filled since February, will hold off for now Continue AC with Eliquis Cardiology following follow electrolytes COPD no exacerbation continue home inhalers gerd continue omeprazole CAD stable. no chest pain at this time HLD continue statin DVT ppx - eliquis code status - Full code HCP - niece and son attending - dr. larkin Quality Stroke Does the patient have a stroke diagnosis?: No VTE Prior VTE?: No VTE Risk Level:: Medical - moderate - high VTE Device Contraindication: Treatment Not Indicated VTE Drug Contraindication: N/A - Med Ordered
--- NOTE | 2021-09-25 12:43 | PM.PNCARD ---
Subjective Subjective Date of Service: 09/25/21 Interval history: Feeling good. No arrhythmia. Tolerating the Sotalol. Physical Exam Vital Signs: Last Vital Signs Temp 98.8 F 09/25/21 11:24 Pulse 62 09/25/21 11:24 Resp 17 09/25/21 11:24 BP 118/77 09/25/21 11:24 Pulse Ox 97 09/25/21 11:24 BMI result Body Mass Index 20.9 GENERAL APPEARANCE: in no acute distress, well developed, well nourished. ? HEENT: unremarkable. ? HEAD: normocephalic, atraumatic. ? NECK/THYROID:? no carotid bruit, no jugular venous distention. ? SKIN: no suspicious lesions, warm and dry. ? HEART: no murmurs, regular rate and rhythm, S1, S2 normal. ? LUNGS: clear to auscultation bilaterally. ? ABDOMEN: normal, bowel sounds present, soft, nontender, nondistended. ? EXTREMITIES:? no edema. ? NEUROLOGIC: nonfocal,alert and oriented. ? PSYCH:? mood/affect full range. Objective Labs and Meds Result diagrams: 09/24/21 08:35 09/25/21 06:44 Lab results: Laboratory Results - last 24 hr 09/25/21 06:44 Sodium 137 Potassium 4.8 D Chloride 105 Carbon Dioxide 27 Anion Gap 10 L BUN 11 Creatinine 1.11 Estim Creat Clear Calc 65.7 Estimated GFR > 60 Random Glucose 101 Calcium 9.1 Magnesium 2.2 Progress Note: A&P Assessment and plan (1) PAF (paroxysmal atrial fibrillation): Status: Acute Plan 66 male admitted for sotalol loading. Tolerating sotalol. Stable QTc. Stable K and mag. He has been experiencing CP for long time. Can repeat troponin but likely noncardiac pain. Thank you for allowing me to participate in the care of your patient. Please feel free to contact me if you have any questions. Fall Risk Details Current Medications: Current Medications Acetaminophen (Acetaminophen 325 Mg Tablet) 650 mg PO Q6H PRN PRN Reason: Pain, Mild (Pain Scale 1-3) Albuterol Sulfate (Albuterol Sulfate 90 Mcg 8 Gm Inhaler) 2 puff INHALE Q4H PRN PRN Reason: Respiratory Distress Apixaban (Apixaban 5 Mg Tablet) 5 mg PO BID [facility] Last Admin: 09/25/21 09:12 Dose: 5 mg Documented by: Atorvastatin Calcium (Atorvastatin Calcium 80 Mg Tablet) 80 mg PO DAILY [facility] Last Admin: 09/25/21 09:12 Dose: 80 mg Documented by: Docusate Sodium (Docusate Sodium 100 Mg Capsule) 100 mg PO DAILY PRN PRN Reason: Constipation Fluticasone/Vilanterol (Fluticasone/Vilanterol 100/25 Blst.W.Dev) 1 puff INHALE RDAILY [facility] Last Admin: 09/25/21 07:58 Dose: 1 puff Documented by: Gabapentin (Gabapentin 300 Mg Capsule) 300 mg PO DAILY@1630 [facility] Last Admin: 09/24/21 17:50 Dose: 300 mg Documented by: Omeprazole (Omeprazole 20 Mg Capsule.Dr) 20 mg PO DAILY@0630 [facility] Last Admin: 09/25/21 06:02 Dose: 20 mg Documented by: Pharmacy Consult (Consult Rx Perform Med Rec) 1 each MISCELLANE ONCE PRN PRN Reason: Consult order Sodium Chloride (0.9 % Sodium Chloride Flush 3 Ml Syringe) 3 ml IVFLUSH QSHIFT [facility] Last Admin: 09/25/21 09:12 Dose: 3 ml Documented by: Sotalol HCl (Sotalol Hcl 80 Mg Tablet) 80 mg PO BID [facility] Last Admin: 09/25/21 09:12 Dose: 80 mg Documented by: Tiotropium [place] (Tiotropium [place] 18 Mcg Cap.W.Dev) 1 puff INHALE RDAILY [facility] Last Admin: 09/25/21 07:57 Dose: 1 puff Documented by: Time Spent With Patient Time: Total time spent is greater than 50% in coordination of care (as documented) at patient's floor/unit and/or counseling patient: Time with patient: 15 - 24 minutes Progress Note: Quality Stroke Does the patient have a stroke diagnosis?: No Procedures Date of Service Date of Service: 09/25/21
[2021-09-25] MEDS: Gabapentin 300 MG CAPSULE PO (17:33)
--- NOTE | 2021-09-26 | ECG_ITS ---
Test Reason : repeat, sotalol protocol Blood Pressure : / mmHG Vent. Rate : 060 BPM Atrial Rate : 060 BPM P-R Int : 154 ms QRS Dur : 138 ms QT Int : 450 ms P-R-T Axes : 041 252 079 degrees QTc Int : 450 ms AV dual-paced rhythm Biventricular pacemaker detected Abnormal ECG When compared with ECG of 25-SEP-2021 11:30, No significant change was found Referred By: Vale Mcmillan Electronically Signed By:Bernard Arnold
[2021-09-26 03:51] VITALS: BP 115/71; PULSE 60; RESP 18; TEMP 36.4; O2SAT 95
[2021-09-26] MEDS: Omeprazole 20 MG CAPSULE.DR PO (05:59)
[2021-09-26] MEDS: Fluticasone/Vilanterol 100/25 BLST.W.DEV 1 PUFF INHALE (07:52)
[2021-09-26 07:55] VITALS: PULSE 81; RESP 18; O2SAT 96
[2021-09-26 08:00] VITALS: BP 133/73; PULSE 60; RESP 18; TEMP 36.3; O2SAT 95
[2021-09-26 08:03] LABS: Anion Gap 13 (12-20); Blood Urea Nitrogen 14 mg/dL (9-16); Calcium 9.1 mg/dL (8.4-10.2); Carbon Dioxide 22 mmol/L (22-29); Chloride 104 mmol/L (96-108); Creatinine Clr Calc Pharmacy 61.3; Estimated Glomerular Filt Rate > 60; Glucose Random 110 mg/dL (60-115); Potassium 4.9 mmol/L (3.3-5.1); Sodium 134 mmol/L (135-145)
[2021-09-26] MEDS: Atorvastatin Calcium 80 MG TABLET PO (09:31)
[2021-09-26] MEDS: Apixaban 5 MG TABLET PO (09:31)
[2021-09-26] MEDS: 0.9 % Sodium Chloride Flush 3 ML SYRINGE IVFLUSH (09:31)
[2021-09-26] MEDS: Sotalol HCL 80 MG TABLET PO (09:31)
--- NOTE | 2021-09-26 11:45 | P.PNCA_ITS ---
Subjective Subjective Date of Service: 09/26/21 Interval history: Stable on sotalol. QT intervals are stable. Doing well. No chest pain or shortness of breath. Physical Exam Vital Signs: Last Vital Signs Temp 97.4 F 09/26/21 08:00 Pulse 60 09/26/21 08:00 Resp 18 09/26/21 08:00 BP 133/73 09/26/21 08:00 Pulse Ox 95 09/26/21 08:00 BMI result Body Mass Index 20.9 GENERAL APPEARANCE: in no acute distress, pleasant. NECK: no carotid bruit, no jugular venous distention. SKIN: no suspicious lesions, warm and dry. HEART: no murmurs, regular rate and rhythm. LUNGS: clear to auscultation bilaterally. ABDOMEN: soft, nontender. EXTREMITIES: no edema. PERIPHERAL PULSES: equal. NEUROLOGIC: No gross deficits, AAO X 3 Objective Labs and Meds Result diagrams: 09/24/21 08:35 09/26/21 06:27 Lab results: Laboratory Results - last 24 hr 09/26/21 06:27 Sodium 134 L Potassium 4.9 Chloride 104 Carbon Dioxide 22 Anion Gap 13 BUN 14 Creatinine 1.19 Estim Creat Clear Calc 61.3 Estimated GFR > 60 Random Glucose 110 Calcium 9.1 Magnesium 2.0 Progress Note: A&P Assessment and plan (1) PAF (paroxysmal atrial fibrillation): Status: Acute Assessment and Plan: [age] gentleman with paroxysmal atrial fibrillation. He has been loaded with sotalol and has received 5 doses and has been stable. I think he can go home on sotalol 80 mg twice a day. In the office he told us that he is taking carvedilol but it appears he has not been taking carvedilol. In any case his blood pressure has been good without carvedilol and his heart rate is 60 with sotalol 80 mg twice a day. I think he she does not require carvedilol. He should go lumbar sotalol and losartan 50 mg daily. He previously had significantly elevated blood pressure was improved after stenting of the renal artery. Sotalol has QT prolongation issues and any medication to be added in the future should be checked for interactions. I have advised get he that if he gets an infection and get Z-Gen or levofloxacin he should discuss with his doctor about the interactions. Thank you for allowing me to participate in the care of your patient. Please feel free to contact me if you have any questions. Fall Risk Details Current Medications: Current Medications Acetaminophen (Acetaminophen 325 Mg Tablet) 650 mg PO Q6H PRN PRN Reason: Pain, Mild (Pain Scale 1-3) Albuterol Sulfate (Albuterol Sulfate 90 Mcg 8 Gm Inhaler) 2 puff INHALE Q4H PRN PRN Reason: Respiratory Distress Apixaban (Apixaban 5 Mg Tablet) 5 mg PO BID [facility] Last Admin: 09/26/21 09:31 Dose: 5 mg Documented by: Atorvastatin Calcium (Atorvastatin Calcium 80 Mg Tablet) 80 mg PO DAILY [facility] Last Admin: 09/26/21 09:31 Dose: 80 mg Documented by: Docusate Sodium (Docusate Sodium 100 Mg Capsule) 100 mg PO DAILY PRN PRN Reason: Constipation Fluticasone/Vilanterol (Fluticasone/Vilanterol 100/25 Blst.W.Dev) 1 puff INHALE RDAILY [facility] Last Admin: 09/26/21 07:52 Dose: 1 puff Documented by: Gabapentin (Gabapentin 300 Mg Capsule) 300 mg PO DAILY@1630 [facility] Last Admin: 09/25/21 17:33 Dose: 300 mg Documented by: Omeprazole (Omeprazole 20 Mg Capsule.) 20 mg PO DAILY@0630 [facility] Last Admin: 09/26/21 05:59 Dose: 20 mg Documented by: Pharmacy Consult (Consult Rx Perform Med Rec) 1 each MISCELLANE ONCE PRN PRN Reason: Consult order Sodium Chloride (0.9 % Sodium Chloride Flush 3 Ml Syringe) 3 ml IVFLUSH QSHIFT [facility] Last Admin: 09/26/21 09:31 Dose: 3 ml Documented by: Sotalol HCl (Sotalol Hcl 80 Mg Tablet) 80 mg PO BID [facility] Last Admin: 09/26/21 09:31 Dose: 80 mg Documented by: Tiotropium [place] (Tiotropium [place] 18 Mcg Cap.W.Dev) 1 puff INHALE RDAILY [facility] Last Admin: 09/26/21 07:52 Dose: 1 puff Documented by: Time Spent With Patient Time: Total time spent is greater than 50% in coordination of care (as documented) at patient's floor/unit and/or counseling patient: Time with patient: 15 - 24 minutes Progress Note: Quality Stroke Does the patient have a stroke diagnosis?: No Procedures Date of Service Date of Service: 09/26/21
[2021-09-26 12:00] VITALS: BP 155/74; PULSE 60; RESP 18; TEMP 36.7; O2SAT 96
--- NOTE | 2021-09-26 12:54 | P.DS_ITS ---
DS: Providers Provider Date of Service: 09/26/21 <HEATHER Partida - Last Filed: 09/27/21 07:39> Date of admission: 09/24/21 13:34 <HEATHER Partida - Last Filed: 09/27/21 07:39> Date of discharge: 09/26/21 <HEATHER Partida - Last Filed: 09/27/21 07:39> Primary care physician: Franck hCris MD <HEATHER Partida - Last Filed: 09/27/21 07:39> Consults: 09/24/21 13:33 Consult to Cardiology Routine Consulting Provider: Bernard Arnold Reason for consultation: afib, sotolol loading Has provider been notified: No <HEATHER Partida - Last Filed: 09/27/21 07:39> Attending physician on discharge: Kevinrommel Guevara <HEATHER Partida - Last Filed: 09/27/21 07:39> Discharging clinician: Vale Mcmillan <HEATHER Partida - Last Filed: 09/27/21 07:39> DS: Diagnosis Discharge Diagnosis (1) PAF (paroxysmal atrial fibrillation): Status: Acute <HEATHER Partida - Last Filed: 09/27/21 07:39> DS: Summary Hospital Course Hospital Course: From H&P on day of admission This is a 66 year old male with multiple medical issues who was sent to the ED by cardiology. He was seen in the architectural wood model maker's office yesterday due to palpitations and shortness of breath with exertion. He has been having episodes of tachycardia noted on his apple watch. He was noted to have multiple runs of atrial fibrillation when his device was interrogated. He was sent in for sotalol loading. He denies any chest pain or palpitations right now. Of note, he was admitted to the hospital at the end of J anuary for the same but he left AMA at that time. In the ED, his lab work was unremarkable. Atrial fibrillation. Patient was started on sotalol. He was monitored on telemetry. His EKG/qt was monitored. He was followed by cardiology and continues to do well. He should avoid medications that can prolong QT while taking sotolol. He will be discharged home with sotalol 80 mg bid with plan for outpatient cardiology follow up. <HEATHER Partida Last Filed: 09/27/21 07:39> Time Spent with Patient Time attestation: Total time spent providing and/or coordinating discharge services: <HEATHER Partida Last Filed: 09/27/21 07:39> Discharge coordination time: Greater than 30 minutes <HEATHER Partida Last Filed: 09/27/21 07:39> Quality: Stroke Does the patient have a stroke diagnosis?: No <HEATHER Partida Last Filed: 09/27/21 07:39> Physical Exam Vital Signs: Vital Signs: Last Vital Signs Temp 98.0 F 09/26/21 12:00 Pulse 60 09/26/21 12:00 Resp 18 09/26/21 12:00 BP 155/74 H 09/26/21 12:00 Pulse Ox 96 09/26/21 12:00 BMI result Body Mass Index 20.9 <HEATHER Partida Last Filed: 09/27/21 07:39> Const: General: cooperative, comfortable, no acute distress, alert and awake <HEATHER Partida Last Filed: 09/27/21 07:39> Nutritional Appearance: thin <HEATHER Partida Last Filed: 09/27/21 07:39> Eyes: Pupils: Equal, round and reactive pupils present <HEATHER Partida Last Filed: 09/27/21 07:39> Resp: Other: diminished, no wheezing <HEATHER Partida Last Filed: 09/27/21 07:39> Effort & Inspection: normal respiratory effort and able to speak in complete sentences <HEATHER Partida Last Filed: 09/27/21 07:39> Cardio: Jugular venous distension: no JVD <HEATHER Partida Last Filed: 09/27/21 07:39> Heart sounds: S1 normal heart sound present and S2 normal heart sound present <HEATHER Partida Last Filed: 09/27/21 07:39> GI: Inspection: No distended <HEATHER Partida - Last Filed: 09/27/21 07:39> Palpation (GI): Soft to palpation and nontender <HEATHER Partida - Last Filed: 09/27/21 07:39> Neuro: Cranial nerves: Yes Equal, round and reactive pupils present <HEATHER Partida - Last Filed: 09/27/21 07:39> Extrem: Other: no leg edema <HEATHER Partida Last Filed: 09/27/21 07:39> Psych: Affect: normal affect <HEATHER Partida - Last Filed: 09/27/21 07:39> DS: Data Data Completed and Pending Labs on day of discharge: Laboratory Results - last 24 hr 09/26/21 06:27 Sodium 134 L Potassium 4.9 Chloride 104 Carbon Dioxide 22 Anion Gap 13 BUN 14 Creatinine 1.19 Estim Creat Clear Calc 61.3 Estimated GFR > 60 Random Glucose 110 Calcium 9.1 Magnesium 2.0 <HEATHER Partida Last Filed: 09/27/21 07:39> Discharge Plan Discharge Patient Disposition: Home, Self-Care <HEATHER Partida - Last Filed: 09/27/21 07:39> Discharge Diagnosis: atrial fibrillation <HEATHER Partida Last Filed: 09/27/21 07:39> Referrals: Franck Chris MD [Primary Care Provider] - 1 Week Bernard Arnold MD [Physician] - 1 Week <HEATHER Partida - Last Filed: 09/27/21 07:39> Discharge Medications: New sotalol 80 mg tablet 80 mg PO BID 30 Days Qty: 60 0RF Continued nitroglycerin 0.4 mg tablet, sublingual 0.4 mg sublingual Q5M PRN (Reason: chest pain) Qty: 60 2RF Rx Instructions: do not exceed 3 doses per episode Eliquis 5 mg tablet 5 mg PO BID Qty: 60 5RF Trelegy Ellipta 100-62.5-25 mcg blister with device 1 inh inhalation DAILY 0RF gabapentin 300 mg capsule 300 mg PO DAILY@1630 0RF omeprazole 20 mg capsule,delayed release(DR/EC) 20 mg PO DAILY 0RF albuterol sulfate 90 mcg/actuation HFA aerosol inhaler 2 puff inhalation Q4H PRN (Reason: Respiratory Distress) 0RF rosuvastatin 40 mg tablet 40 mg PO DAILY 0RF losartan 50 mg tablet 50 mg PO DAILY 0RF <HEATHER Partida - Last Filed: 09/27/21 07:39> Discharge Orders: Discharge Order (Routine); Ordered 09/26/21 Ordered By: Vale Mcmillan <HEATHER Partida - Last Filed: 09/27/21 07:39> Activity on Discharge: As tolerated <HEATHER Partida - Last Filed: 09/27/21 07:39> Stand Alone Forms: Patient Portal Discharge page <HEATHER Partida - Last Filed: 09/27/21 07:39> Care Plan Goals: see below <HEATHER Partida - Last Filed: 09/27/21 07:39> Health Concerns: atrial fibrillation <HEATHER Partida - Last Filed: 09/27/21 07:39> Plan of Treatment: Continue sotalol as prescribed Call to schedule follow up appointment with cardiology <HEATHER Partida - Last Filed: 09/27/21 07:39> Assessment: admitted for sotalol loading now stable for discharge home I saw patient personally and discussed management and disposition with HEATHER and I agree with the above <HEATHER Partida - Last Filed: 09/27/21 07:39> Patient Instructions: Sotalol (By mouth) <HEATHER Partida - Last Filed: 09/27/21 07:39> Discharge Date/Time: 09/26/21 13:39 <HEATHER Partida - Last Filed: 09/27/21 07:39>
--- NOTE | 2021-09-26 13:12 | MHC.CM.PN ---
PT TO DC HOME TODAY WITH NO SERVICES
== END 2021-09-26 13:39 | disposition home or self-care (01) | DRG 310 ==
LOC: HO.ED 14:24 → HO.EDOVER 14:40 → HO.IMC 19:14
PROVIDERS: Admitting Provider Physician Assistant Medical; Emergency Provider Emergency Medicine; PCP Internal Medicine; Visit Provider Physician Assistant Medical
DX: I48.0 Paroxysmal atrial fibrillation (principal); J44.9 Chronic obstructive pulmonary disease, unspecified; K21.9 Gastro-esophageal reflux disease without esophagitis; I25.10 Atherosclerotic heart disease of native coronary artery without angina pectoris; I25.2 Old myocardial infarction; E78.5 Hyperlipidemia, unspecified; Z86.73 Personal history of transient ischemic attack (TIA), and cerebral infarction without residual deficits; Z95.810 Presence of automatic (implantable) cardiac defibrillator; F17.210 Nicotine dependence, cigarettes, uncomplicated; Z71.6 Tobacco abuse counseling; Z98.61 Coronary angioplasty status; Z79.899 Other long term (current) drug therapy
CPT/HCPCS: 36415; 71045; 80048; 80053; 83735; 84484; 85025; 87635; 93005; 96365; 96366; 99212; 99285; J3475

== ENCOUNTER 2021-10-16 12:23 | Outpatient (REF) | payer MEDICARE, MEDICAID, SELFPAY ==
--- NOTE | ~2021-10-16 | CT_ITS ---
EXAMINATION: CT CHEST WITHOUT CONTRAST CLINICAL INFORMATION: Follow-up pulmonary nodules. COMPARISON: Previous chest CT most recent October 2020. TECHNIQUE: Multidetector volumetric CT imaging of the chest was done. Axial MIP volume rendering provided. Sagittal and coronal reformatted images were obtained. This CT examination was performed using dose optimization techniques as appropriate, variously including the following: *Automated exposure control. *Adjustment of mA and/or kV according to patient size (this includes techniques or standardized protocols for targeted exams where dose is matched to indication/reason for exam; i.e. extremities or head). *Use of iterative reconstruction technique. DLP: 147 mGy-cm FINDINGS: LUNGS: There is evidence of emphysema. There is a 2.3 cm in AP and transverse and longitudinal dimension slightly spiculated central right lower lobe or infrahilar nodule, axial image 35 series 3. It is difficult to separate from the surrounding vasculature without contrast. Appearance is concerning for neoplasm. The small pulmonary nodules are stable. Largest pulmonary nodule is a 4 mm left upper lobe nodule, axial image 266 series 7. There is subsegmental atelectasis at the lung bases. No endobronchial or endotracheal lesion. MEDIASTINUM: There is a left subclavian AICD. The heart does not appear enlarged. There is no pericardial effusion. There are small mediastinal lymph nodes. There is coronary artery calcification. The thoracic aorta is normal in caliber. PLEURA: There is no pleural effusion. No pleural mass or thickening. AXILLA: No lymphadenopathy. UPPER ABDOMEN: The gallbladder has been removed. OSSEOUS STRUCTURES: There are degenerative changes of the spine. There is a 6 mm sclerotic lesion in the right T12 vertebral body. This is gradually increasing in size and density compared to older exams. There is a 4 mm sclerotic lesion in the T1 vertebral body that appears stable. CT/CT chest wo con IMPRESSION: 2.3 cm spiculated central right lower lobe or infrahilar nodule suspicious for neoplasm. Emphysema. Stable small pulmonary nodules. Small sclerotic bone lesions in the T1 and T12 vertebral bodies. The T12 lesion appears slightly increased in size and density compared to older exams. Fleischner guidelines were followed. Findings are communicated by the [employer] work flow operator weapon locating radar Annel Vasquez.
== END 2021-10-16 12:24 | disposition home or self-care (01) ==
LOC: HO.CT 12:23
PROVIDERS: Visit Provider Internal Medicine Pulmonary Disease
DX: R91.8 Other nonspecific abnormal finding of lung field (principal)
CPT/HCPCS: 71250

== ENCOUNTER 2021-10-22 13:28 | Outpatient (REF) | payer MEDICARE, MEDICAID, SELFPAY ==
[2021-10-22 15:07] LABS: Alanine Aminotransferase 17 U/L (0-40); Alkaline Phosphatase 128 U/L (39-117); Anion Gap 10 (12-20); Aspartate Amino Transferase 15 U/L (5-37); Bilirubin Total 0.5 mg/dL (0.0-1.0); Blood Urea Nitrogen 10 mg/dL (9-16); Calcium 9.3 mg/dL (8.4-10.2); Carbon Dioxide 30 mmol/L (22-29); Chloride 103 mmol/L (96-108); Estimated Glomerular Filt Rate 51; Glucose Random 83 mg/dL (60-115); Magnesium 1.9 mg/dL (1.6-2.6); Potassium 4.2 mmol/L (3.3-5.1); Sodium 139 mmol/L (135-145); Total Protein 6.5 g/dL (6.5-8.0)
== END 2021-10-22 13:29 | disposition home or self-care (01) ==
LOC: HO.LAB 13:28
PROVIDERS: PCP Internal Medicine; Referring Provider Internal Medicine; Visit Provider Nurse Practitioner Family
DX: I48.0 Paroxysmal atrial fibrillation (principal); I25.10 Atherosclerotic heart disease of native coronary artery without angina pectoris; I42.8 Other cardiomyopathies; I10 Essential (primary) hypertension; Z95.810 Presence of automatic (implantable) cardiac defibrillator
CPT/HCPCS: 36415; 80053; 83735; 93005; 99212

== ENCOUNTER → 2021-10-26 08:06 | Outpatient (BNVA) | payer MEDICARE, MEDICAID, SELFPAY | PROVIDERS: PCP Internal Medicine; Referring Provider Internal Medicine; Visit Provider Nurse Practitioner Family | DX: R94.31 Abnormal electrocardiogram [ECG] [EKG] (principal) | CPT/HCPCS: 93005 ==

== ENCOUNTER → 2021-10-27 08:17 | Outpatient (BNVA) | payer MEDICARE, MEDICAID, SELFPAY | PROVIDERS: PCP Internal Medicine; Referring Provider Internal Medicine; Visit Provider Nurse Practitioner Family | DX: R94.31 Abnormal electrocardiogram [ECG] [EKG] (principal) | CPT/HCPCS: 93005 ==

== ENCOUNTER → 2021-11-02 07:50 | Outpatient (BNVA) | payer MEDICARE, MEDICAID, SELFPAY | PROVIDERS: PCP Internal Medicine; Visit Provider Nurse Practitioner Family | DX: R94.31 Abnormal electrocardiogram [ECG] [EKG] (principal) | CPT/HCPCS: 93005 ==

== ENCOUNTER → 2021-11-11 13:39 | Outpatient (BNVA) | payer MEDICARE, MEDICAID, SELFPAY | PROVIDERS: PCP Internal Medicine; Visit Provider Internal Medicine Pulmonary Disease | DX: J44.9 Chronic obstructive pulmonary disease, unspecified (principal); R91.8 Other nonspecific abnormal finding of lung field | CPT/HCPCS: 99212 ==

== ENCOUNTER → 2021-11-12 10:01 | Outpatient (BNVA) | payer MEDICARE, MEDICAID, SELFPAY | PROVIDERS: PCP Internal Medicine; Referring Provider Internal Medicine; Visit Provider Internal Medicine Cardiovascular Disease | DX: Z13.89 Encounter for screening for other disorder (principal) ==

== ENCOUNTER → 2021-11-18 14:31 | Outpatient (BNVA) | payer MEDICARE, MEDICAID, SELFPAY | PROVIDERS: PCP Internal Medicine; Referring Provider Internal Medicine; Visit Provider Nurse Practitioner Family | DX: Z13.89 Encounter for screening for other disorder (principal) ==

== ENCOUNTER 2021-11-24 08:29 | Outpatient (REF) | payer MEDICARE, MEDICAID, SELFPAY ==
--- NOTE | ~2021-11-24 | PE_ITS ---
EXAMINATION: Fluorine-18 FDG PET/CT Scan CLINICAL INDICATION: Initial treatment management. Pulmonary nodule. PROCEDURE: 64 minutes following the intravenous administration of 16.2 mCi of fluorine 18 FDG, images from the base of the skull to the mid thighs were obtained using a combined PET/CT scanner with CT scan based attenuation correction. No oral contrast was administered. No intravenous contrast was administered. Transverse, coronal, sagittal, and volume reconstruction projections were obtained. The patient's blood glucose as determined by a finger stick, was 94 mg/dl immediately prior to injection. Total CT exam dose-length product 339.31 mGy-cm * These CT images were obtained using dose optimization techniques as appropriate, variously including the following: Automated exposure control * Adjustment of mA and/or kV according to patient size (this includes techniques or standardized protocols for targeted exams where dose is matched to indication/reason for exam; i.e. extremities or head) * Use of iterative reconstruction technique COMPARISON: No previous PET/CT scan is available for comparison. CT scan of the chest dated 10/16/[address] scan of the abdomen and pelvis dated 09/29/2016 are available for comparison. FINDINGS: (Slice numbers described in this report are numbered superiorly to inferiorly with slice #1 in the head) NECK AND VISUALIZED HEAD: No foci of abnormal FDG activity are noted. The distribution of FDG activity is physiological. There is no cervical lymphadenopathy. THORAX: There is an FDG avid medial right infrahilar soft tissue density, SUVmax 4.1, slice 103/267. This corresponds to the previously described spiculated central right lower lobe nodule visualized on the 10/16/2021 CT scan. This is difficult to separate from adjacent soft tissue structures on these CT images performed without intravenous contrast but measures approximately 1.7 x 1.5 cm in largest transverse dimensions and approximately 2.2 cm cephalocaudad. There is a 0.4 cm left apical pulmonary nodule, also unchanged from 10/16/2021 is too small to be characterized on the FDG PET images. No additional pulmonary nodules are visualized. There is a mildly FDG avid right hilar focus, SUVmax 2.7, slice 94/267 not well delineated on the CT images and another mild FDG avid subcarinal focus, SUVmax 3.4, slice 95/267, the latter probably corresponding to a soft tissue density that measures 1.5 x 0.7 cm in largest transverse dimensions. No additional foci of abnormal FDG activity are present. There are several small subcentimeter mediastinal lymph nodes but no additional mediastinal, supraclavicular, or axillary lymphadenopathy is present. There is no pleural or pericardial fluid, or pneumothorax. A left subclavian AICD and associated leads are noted. ABDOMEN AND PELVIS: There are no foci of abnormal FDG activity in the abdomen or pelvis. Mild FDG activity is noted throughout the gastrointestinal tract without a suspicious focal component and with no associated CT abnormalities. There is diverticulosis without evidence of diverticulitis. The hollow viscera are otherwise unremarkable. The liver and spleen are unremarkable. The gallbladder has been resected and there are metallic surgical clips in the gallbladder bed. The kidneys, adrenal glands and pancreas are unremarkable. There is no retroperitoneal, mesenteric, pelvic or inguinal lymphadenopathy. MUSCULOSKELETAL: There are no foci of abnormal FDG activity in the osseous structures. There are mild degenerative changes in the spine but no suspicious sclerotic or lytic lesions are visualized. VASCULAR: Diffuse vascular calcifications are present including coronary, and a coronary stent is likely in place. PET/PET CT fusion skull to thigh IMPRESSION: 1. An FDG avid right lower lobe infrahilar pulmonary nodules present and is most likely malignant. 2. Mild FDG avid foci in the right hilar and subcarinal regions are nonspecific but suspicious for metastatic disease. 3. A 0.4 cm left apical pulmonary nodule is too small to be characterized on the FDG PET images. 4. No additional abnormalities suspicious for other metastatic or malignant lesions are noted. 5. Diffuse vascular calcifications including coronary.
== END 2021-11-24 08:30 | disposition home or self-care (01) ==
LOC: HO.PET 08:29
PROVIDERS: PCP Internal Medicine; Visit Provider Internal Medicine Pulmonary Disease
DX: Z13.89 Encounter for screening for other disorder (principal)

== ENCOUNTER → 2021-11-26 08:06 | Outpatient (BNVA) | payer MEDICARE, MEDICAID, SELFPAY | PROVIDERS: PCP Internal Medicine; Referring Provider Internal Medicine; Visit Provider Nurse Practitioner Family | DX: R94.31 Abnormal electrocardiogram [ECG] [EKG] (principal) | CPT/HCPCS: 93005 ==

== ENCOUNTER → 2021-12-03 13:45 | Outpatient (BNVA) | payer MEDICARE, MEDICAID, SELFPAY | PROVIDERS: PCP Internal Medicine; Visit Provider Internal Medicine Pulmonary Disease | DX: J44.9 Chronic obstructive pulmonary disease, unspecified (principal); R91.8 Other nonspecific abnormal finding of lung field; Z79.899 Other long term (current) drug therapy | CPT/HCPCS: 99212 ==

== ENCOUNTER 2021-12-09 12:10 | Day surgery (SDC) | payer MEDICARE, MEDICAID, SELFPAY ==
[2021-12-09] VITALS (15 sets, daily range): BP systolic 88–137; BP diastolic 52–84; PULSE 73–96; RESP 16–26; TEMP 36.3–36.9; O2SAT 95–100; BMI 20.6
--- NOTE | 2021-12-09 12:00 | ECG_ITS ---
Test Reason : PREOP Blood Pressure : / mmHG Vent. Rate : 069 BPM Atrial Rate : 069 BPM P-R Int : 146 ms QRS Dur : 124 ms QT Int : 430 ms P-R-T Axes : 075 116 082 degrees QTc Int : 460 ms Atrial-sensed ventricular-paced rhythm Abnormal ECG When compared with ECG of 26-SEP-2021 09:55, Vent. rate has increased BY 9 BPM Previously atrial pacing noted. Change in QRS polarity in chest leads. Referred By: Abiodun Olmos Electronically Signed By:LESLEE MOE
--- NOTE | 2021-12-09 13:06 | P.CONAN_ITS ---
[facility] Active Problems Active Problems: All Active Problems (Updated 11/11/21 @ 14:08 by Seb Phelps MD) Pulmonary nodules (Acute) COPD (chronic obstructive pulmonary disease) (Acute) NICM (nonischemic cardiomyopathy) (Acute) ICD (implantable cardioverter-defibrillator) in place (Acute) PAF (paroxysmal atrial fibrillation) (Acute) CHF (congestive heart failure) (Acute) Lipoma of extremity (Acute) Essential hypertension (Acute) Coronary artery disease (Acute) JOHNSTON (dyspnea on exertion) (Acute) Stable angina (Acute) Past Medical History Medical History (Updated 11/11/21 @ 14:08 by Seb Phelps MD) Atrial flutter COPD (chronic obstructive pulmonary disease) Coronary artery disease CVA (cerebral vascular accident) HTN (hypertension) ICD (implantable cardioverter-defibrillator) in place Myocardial infarction NICM (nonischemic cardiomyopathy) Pulmonary nodules RADHA (renal artery stenosis) TIA (transient ischemic attack) Uncontrolled hypertension Family History Family History Father No problems noted. Family history of problems with anesthesia: No Surgical History Surgical History History of back surgery History of cholecystectomy Hx of cardiac catheterization S/P angioplasty with stent History of Problems with Anesthesia: No Social History Social History Household Members: None Housing: Apartment Do you presently have visiting nurse or other home services: No Alcohol intake: current Alcohol intake frequency: holidays/special occasions only Patient Tobacco Use Status: Current everyday Tobacco user Tobacco use type: Cigarette Cigarette Packs Per Day: 0.25 Cigarettes Per Day: 5 Years Smoked: 54 Smoked in Last 30 Days: Yes Second Hand Smoke Exposure: Yes Use of substances other than those prescribed or required for medical reasons: No Are you DNR?: No Advance Directives: Yes Advance Directives on File: Yes Advance Directives Date on File: 09/24/21 service: No Current occupational status: retired Meds Allergies Allergy/AdvReac Type Severity Reaction Status Date / Time cat dander [CATS] Allergy Unknown UNKNOWN Verified 12/09/21 12:46 Home Medications Medication Instructions Recorded Confirmed Last Taken Type gabapentin 300 mg capsule 300 mg PO DAILY@1630 05/16/20 11/18/21 09/23/21 Hist ory omeprazole 20 mg capsule,delayed 20 mg PO DAILY 05/16/20 11/18/21 09/24/21 History release albuterol sulfate 90 mcg/actuation 2 puff INHALATION Q4H PRN 08/25/20 11/18/21 Unknown History aerosol inhaler losartan 50 mg tablet 50 mg PO DAILY 06/17/21 11/18/21 09/24/21 History rosuvastatin 40 mg tablet 40 mg PO DAILY 06/17/21 11/18/21 09/24/21 History Exam Exam Date and Time: December 09, 2021 1306 Height,Weight and Vital Signs: Height 6 ft Weight 68.946 kg Airway Mallampati Class: II TM Dist: >3cm Neck ROM: Full Denture: Upper and Lower Assessment and Plan Assessment Anesthesia Assessment: Anesthesia Plan Discussed, Smoking Cess. Discussed and Chart Reviewed Final Anesthetic Review Family History of Problems with Anesthesia: No History of Problems with Anesthesia: No NPO: Yes ASA Class: III Final Preanesthetic Review: No Changes in Pt Med Stat, Meds/Allgs Chart Reviewed and Consent Obtained/Reviewed Patient Risk: Intermediate Procedure Risk: Intermediate Anesthetic Plan Anesthetic Plan: GA Disposition: Standard PACU
--- NOTE | 2021-12-09 13:41 | MHC.SHP ---
Pre-Procedural Eval Section A Date of Service: 12/09/21 The patient is an INPATIENT: No The History & Physical has been completed within 30 days and I have reviewed it.: Yes Section B Chief Complaint: abnormal findings Allergies: Allergies Allergy/AdvReac Type Severity Reaction Status Date / Time cat dander [CATS] Allergy Unknown UNKNOWN Verified 12/09/21 12:46 Plan Diagnosis/Plan: Unchanged I have reviewed the history and physical and performed a pertinent physical examination on my patient. No changes have occurred unless specified.
--- NOTE | 2021-12-09 15:29 | PM.OP ---
Brief Operative Note Date of Service: 12/09/21 Pre-op diagnosis: Lung cancer Post-op diagnosis: same Procedure: Bronchoscope advanced through the tracheobronchial tree via ET tube with patient intubated for the procedure with visualization of normal bronchial mucosa and no endobronchial lesions. Thereafter endobronchial ultrasound-guided fine-needle aspiration of station 7 and station 10R performed with aspirate sent for pathology. Patient tolerated the procedure well and was returned to PACU in stable condition. Surgeon: Seb Phelps MD Anesthesia: GETA Was an [employer] used for this Procedure?: No Estimated blood loss (mL): 0 Pathology: other (Fine-needle aspiration of stations 7 and 10R sent) Condition: stable Disposition: PACU
[2021-12-09] MEDS: Racepinephrine HCL 0.5 ML VIAL.NEB INHALE (15:39)
[2021-12-09] MEDS: Albuterol/Iprat 2.5/0.5MG 3 ML AMPUL.NEB INHALE ×2 (15:40→15:52)
[2021-12-09] MEDS: fentaNYL citrate/PF 100 MCG/2 ML VIAL 50 MCG IVPUSH ×2 (15:58→16:02)
[2021-12-09] MEDS: Lactated Ringers 1,000 ML 100 ML IVCONT (16:07)
== END 2021-12-09 17:00 | disposition home or self-care (01) ==
PROVIDERS: PCP Internal Medicine; Visit Provider Internal Medicine Pulmonary Disease
PROC: (CPT 31652; principal; 2021-12-09 14:00)
DX: R91.8 Other nonspecific abnormal finding of lung field (principal); C34.90 Malignant neoplasm of unspecified part of unspecified bronchus or lung; J44.9 Chronic obstructive pulmonary disease, unspecified; R06.09 Other forms of dyspnea; I48.92 Unspecified atrial flutter; I25.10 Atherosclerotic heart disease of native coronary artery without angina pectoris; I10 Essential (primary) hypertension; Z95.5 Presence of coronary angioplasty implant and graft; Z79.01 Long term (current) use of anticoagulants; Z95.810 Presence of automatic (implantable) cardiac defibrillator; J30.81 Allergic rhinitis due to animal (cat) (dog) hair and dander; F17.210 Nicotine dependence, cigarettes, uncomplicated; Z79.899 Other long term (current) drug therapy; Z86.73 Personal history of transient ischemic attack (TIA), and cerebral infarction without residual deficits
CPT/HCPCS: 31652; 36415; 88172; 88173; 88177; 88184; 88185; 88305; 93005; 94640; J0171; J1100; J2250; J3010

== ENCOUNTER → 2021-12-22 10:08 | Outpatient (BNVA) | payer MEDICARE, MEDICAID, SELFPAY | PROVIDERS: PCP Internal Medicine; Visit Provider Internal Medicine Pulmonary Disease | DX: J44.9 Chronic obstructive pulmonary disease, unspecified (principal); R91.8 Other nonspecific abnormal finding of lung field; R59.0 Localized enlarged lymph nodes | CPT/HCPCS: 99212 ==

== ENCOUNTER 2021-12-23 13:20 | Outpatient (REF) | payer MEDICARE, MEDICAID, SELFPAY ==
--- NOTE | ~2021-12-23 | XR_ITS ---
EXAMINATION: XR CHEST CLINICAL INFORMATION: COPD. COMPARISON: 09/24/2021 and 05/17/2020. TECHNIQUE: 2 views of the chest were obtained. FINDINGS: The right infrahilar mass seen on CT is not evident on the plain film chest x-ray. Lungs are well inflated. Central pulmonary arteries are prominent with tapering of pulmonary vessels peripherally consistent with COPD. No acute parenchymal disease, pneumothorax, or pleural effusion is appreciated. Heart normal size. No evidence of pulmonary edema. Pacemaker in place. XR/XR chest 2V IMPRESSION: No acute disease. COPD. Right lung lesion seen on CT scan is not readily identified on the plain film study.
== END 2021-12-23 13:21 | disposition home or self-care (01) ==
LOC: HO.XRAY 13:20
PROVIDERS: PCP Internal Medicine; Referring Provider Internal Medicine; Visit Provider Internal Medicine Cardiovascular Disease
DX: J44.9 Chronic obstructive pulmonary disease, unspecified (principal); I25.10 Atherosclerotic heart disease of native coronary artery without angina pectoris; I48.0 Paroxysmal atrial fibrillation; R06.00 Dyspnea, unspecified; Z79.899 Other long term (current) drug therapy
CPT/HCPCS: 71046; 93005; 99212

== ENCOUNTER 2022-02-25 11:29 | Emergency (ER) | payer MEDICARE, MEDICAID, SELFPAY ==
--- NOTE | 2022-02-25 | ECG_ITS ---
Test Reason : sob Blood Pressure : / mmHG Vent. Rate : 070 BPM Atrial Rate : 070 BPM P-R Int : 138 ms QRS Dur : 126 ms QT Int : 432 ms P-R-T Axes : 078 218 083 degrees QTc Int : 466 ms Atrial-sensed ventricular-paced rhythm Biventricular pacemaker detected Abnormal ECG When compared with ECG of 09-DEC-2021 12:52, No significant change was found Referred By: Andrea Bobby Electronically Signed By:KRISTINA LEVINE MD
[2022-02-25 11:49] VITALS: BP 134/77; PULSE 73; RESP 18; TEMP 37; O2SAT 99; BMI 21.8
[2022-02-25 12:05] LABS: MANUAL DIFF FLAG NO
[2022-02-25 12:13] LABS: Basophils Absolute Auto 0.1 X10*3/uL (0.0-0.2); Basophils Percent Auto 0.9 % (0-2); Eosinophils Absolute Auto 0.2 X10*3/uL (0.0-0.4); Eosinophils Percent Auto 2.1 % (0-4); Hematocrit 44.6 % (42.0-52.0); Hemoglobin 14.8 g/dl (14.0-18.0); Imm Gran Abs Auto 0.03 X10*3/uL (0.00-0.03); Imm Gran Pct Auto 0.3 % (0.0-0.4); Lymphocytes Absolute Auto 2.8 X10*3/uL (1.2-4.9); Lymphocytes Percent Auto 31.1 % (20-40); Mean Corpuscular HGB Conc 33.2 g/dl (31.0-36.0); Mean Corpuscular Hemoglobin 30.3 pg (27.0-33.0); Mean Corpuscular Volume 91.4 fL (80.0-98.0); Mean Platelet Volume 11.2 fL (9.4-12.4); Monocytes Absolute Auto 0.6 X10*3/uL (0.1-1.2); Monocytes Percent Auto 6.6 % (2-11); Neutrophils Absolute Auto 5.4 x10*3/uL (2.0-8.3); Platelet Count 270 X10*3/uL (160-400); Red Blood Count 4.88 X10*6/uL (4.60-5.80); Red Cell Distribution Width 14.6 % (11.0-16.0); White Blood Count 9.1 X10*3/uL (4.8-10.8)
[2022-02-25 12:29] LABS: B Type Natriuretic Peptide 76 pg/mL (<100); Troponin-I High Sensitivity 4.6 ng/L (<3.5-35.0)
[2022-02-25 12:32] LABS: Anion Gap 12 (12-20); Blood Urea Nitrogen 11 mg/dL (9-16); Calcium 8.8 mg/dL (8.4-10.2); Carbon Dioxide 25 mmol/L (22-29); Chloride 104 mmol/L (96-108); Creatinine Clr Calc Pharmacy 64.4; Estimated Glomerular Filt Rate > 60; Glucose Random 87 mg/dL (60-115); Potassium 4.4 mmol/L (3.3-5.1); Sodium 137 mmol/L (135-145)
== END 2022-02-25 18:21 | disposition left against medical advice (07) ==
PROVIDERS: Emergency Provider Emergency Medicine; PCP Internal Medicine
DX: R06.02 Shortness of breath (principal); Z79.899 Other long term (current) drug therapy
CPT/HCPCS: 36415; 80048; 83880; 84484; 85025; 93005; 99212; 99281; 99282; 99283

== ENCOUNTER 2022-03-04 10:29 | Outpatient (REF) | payer MEDICARE, MEDICAID, SELFPAY ==
--- NOTE | ~2022-03-04 | CT_ITS ---
EXAMINATION: CT CHEST WITHOUT CONTRAST CLINICAL INFORMATION: Localized enlarged lymph nodes. COMPARISON: Prior CT examinations, most recently 12/23/2021; PET/CT dated 11/24/2021. TECHNIQUE: Multidetector volumetric CT imaging of the chest was done. Axial MIP volume rendering provided. Sagittal and coronal reformatted images were obtained. This CT examination was performed using dose optimization techniques as appropriate, variously including the following: *Automated exposure control *Adjustment of mA and/or kV according to patient size (this includes techniques or standardized protocols for targeted exams where dose is matched to indication/reason for exam; i.e. 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 An AICD is noted. LUNGS: Centrally within the right lower lobe (5:290 and 6:49), a dominant 2.4 x 2.5 x 3.4 cm spiculated nodule is seen. This abuts the right middle and lower lobe main segmental bronchi, with little luminal narrowing. These dimensions are not simply changed from 10/16/2021, when measured similarly (7:334 and 5:48). Within the posterior segment of the right upper lobe (5:237), a 3 mm noncalcified subpleural nodule is seen, which appears stable from 10/16/2021. Within the anterior basal segment of the right lower lobe (8:105 and 5:340 and 347), there are 2 small endobronchial densities, likely inspissated mucous. There is an adjacent 1 mm noncalcified nodule (5:353), which appears stable from 10/16/2021. At the left apex (5:61), there is a medial 1 mm benign, calcified granuloma, and a more lateral 4 mm noncalcified nodule is seen. These nodules are stable from prior CT examinations, including 10/16/2021. Within the posterior left apex (5:112) a stable 2 mm noncalcified nodule is seen. Within the apicoposterior segment of the left upper lobe (5:145 and 232), 2 stable 4 mm noncalcified subpleural and parenchymal nodules are seen. In the superior segment of the left lower lobe (5:208), a stable 3 mm noncalcified subpleural nodule is seen. Within the lateral basal segment of the left lower lobe (5:422), a stable 2 mm noncalcified subpleural nodule is seen, likely subpleural lymph node. There are moderate centrilobular emphysematous changes. There is no new mass, infiltrate or groundglass opacity. There are stable foci of linear scar/subsegmental atelectasis at the posterior bases. There is mild small airway thickening. There are small foci of inspissated mucous is seen within the trachea and right mainstem bronchus, which appear otherwise patent. MEDIASTINUM: The thyroid is unremarkable. Within the AP window (3:34), a borderline enlarged lymph node is seen, measuring 1.4 x 1.0 cm. There are further shotty, nonpathologically enlarged mediastinal lymph nodes. No sizable hilar lymphadenopathy is seen. There is no thoracic aortic aneurysm. There are moderate atherosclerotic calcifications of the great vessel origins, thoracic aorta and coronary arteries. PLEURA: There is no pleural effusion. No pleural mass or thickening. AXILLA: No lymphadenopathy. UPPER ABDOMEN: The adrenal glands are unremarkable. The gallbladder is surgically absent. OSSEOUS STRUCTURES: There is multi-level thoracic and upper lumbar degenerative disc disease and Schmorl's node formation. There are chronic mild T7, T8 and T11 anterior wedge compression fractures. There is a stable sclerotic lesion noted anteriorly within the T12 vertebral body, again measuring 6 mm in maximal diameter (7:68). No acute or aggressive osseous abnormality is seen. CT/CT chest wo con IMPRESSION: 1. A stable spiculated central right lower lobe nodule is redemonstrated, with dimensions as detailed above. This is FDG avid on the PET/CT dated 11/24/2021, and it may be more fully evaluated with bronchoscopy, if clinically indicated. 2. There are further stable small, nonspecific noncalcified and calcified bilateral lung nodules. Recommend continued attention on imaging follow-up. No new nodule, mass, infiltrate or groundglass opacity is seen. 3. There are moderate centrilobular emphysematous changes. 4. There is an increased mildly enlarged AP window lymph node, for which continued attention on imaging follow-up is recommended. 5. There is a stable sclerotic lesion noted within the T12 vertebral body, again indeterminate. Continued attention on imaging follow-up is recommended. Fleischner guidelines were followed.
[2022-03-04 10:54] LABS: MANUAL DIFF FLAG NO
[2022-03-04 11:15] LABS: Appearance Urine CLEAR; Color Urine YELLOW; Glucose Urine UA NEG (NEG); Leukocyte Esterase Urine NEG (NEG); Nitrite Urine NEG (NEG); Specific Gravity - Urine 1.015 (1.005-1.025); Urine Blood NEG (NEG); Urine Ketones NEG (NEG); Urine Protein NEG (NEG-TRACE)
[2022-03-04 11:16] LABS: Basophils Absolute Auto 0.1 X10*3/uL (0.0-0.2); Basophils Percent Auto 0.8 % (0-2); Eosinophils Absolute Auto 0.2 X10*3/uL (0.0-0.4); Eosinophils Percent Auto 2.6 % (0-4); Hematocrit 44.1 % (42.0-52.0); Hemoglobin 14.4 g/dl (14.0-18.0); Imm Gran Abs Auto 0.04 X10*3/uL (0.00-0.03); Imm Gran Pct Auto 0.4 % (0.0-0.4); Lymphocytes Absolute Auto 2.5 X10*3/uL (1.2-4.9); Lymphocytes Percent Auto 27.4 % (20-40); Mean Corpuscular HGB Conc 32.7 g/dl (31.0-36.0); Mean Corpuscular Hemoglobin 30.2 pg (27.0-33.0); Mean Corpuscular Volume 92.5 fL (80.0-98.0); Monocytes Absolute Auto 0.8 X10*3/uL (0.1-1.2); Monocytes Percent Auto 8.5 % (2-11); Neutrophils Absolute Auto 5.6 x10*3/uL (2.0-8.3); Neutrophils Percent Auto 60.3 % (45-73); Platelet Count 262 X10*3/uL (160-400); Red Blood Count 4.77 X10*6/uL (4.60-5.80); Red Cell Distribution Width 14.9 % (11.0-16.0); White Blood Count 9.2 X10*3/uL (4.8-10.8)
[2022-03-04 11:31] LABS: RBC Urine 0 /HPF (0); WBC Urine 0 /HPF (0-4)
[2022-03-04 11:43] LABS: Estimated Average Glucose 105 mg/dL; Hemoglobin A1c % 5.3 %
[2022-03-04 11:50] LABS: PSA,Total (Free>4and<10) 0.94 ng/mL (0.00-4.00)
[2022-03-04 11:55] LABS: Alanine Aminotransferase 15 U/L (0-40); Albumin Level 3.9 g/dL (3.5-5.0); Alkaline Phosphatase 87 U/L (39-117); Anion Gap 13 (12-20); Aspartate Amino Transferase 16 U/L (5-37); Bilirubin Total 0.3 mg/dL (0.0-1.0); Blood Urea Nitrogen 10 mg/dL (9-16); Calcium 8.9 mg/dL (8.4-10.2); Carbon Dioxide 22 mmol/L (22-29); Chloride 107 mmol/L (96-108); Cholesterol 225 mg/dL; Creatinine Urine 78.71 mg/dL; Estimated Glomerular Filt Rate > 60; Glucose Fasting 92 mg/dL (60-99); HDL Cholesterol 36 mg/dL; LDL Cholesterol Calculated 138 mg/dl; Microalbumin Urine < 5.0 mg/L; Sodium 138 mmol/L (135-145); Total Protein 6.2 g/dL (6.5-8.0); Triglycerides 255 mg/dL
== END 2022-03-04 10:30 | disposition home or self-care (01) ==
LOC: HO.CT 10:29
PROVIDERS: PCP Internal Medicine; Visit Provider Internal Medicine
DX: Z12.5 Encounter for screening for malignant neoplasm of prostate (principal); R91.1 Solitary pulmonary nodule
CPT/HCPCS: 36415; 71250; 80053; 80061; 81001; 82043; 83036; 84153; 85025

== ENCOUNTER → 2022-04-06 11:27 | Outpatient (BNVA) | payer MEDICARE, MEDICAID, SELFPAY | PROVIDERS: PCP Internal Medicine; Visit Provider Internal Medicine Pulmonary Disease | DX: R91.8 Other nonspecific abnormal finding of lung field (principal); J44.9 Chronic obstructive pulmonary disease, unspecified | CPT/HCPCS: 99212 ==

== ENCOUNTER → 2022-06-14 14:05 | Outpatient (BNVA) | payer MEDICARE, MEDICAID, SELFPAY | PROVIDERS: PCP Internal Medicine; Referring Provider Internal Medicine; Visit Provider Internal Medicine Cardiovascular Disease | DX: I10 Essential (primary) hypertension (principal); I20.8 Other forms of angina pectoris; I48.0 Paroxysmal atrial fibrillation; R91.1 Solitary pulmonary nodule | CPT/HCPCS: 99212 ==

== ENCOUNTER 2022-07-14 07:46 | Outpatient (REF) | payer MEDICARE, MEDICAID, SELFPAY ==
--- NOTE | ~2022-07-14 | CT_ITS ---
EXAMINATION: CT LUMBAR SPINE WITHOUT CONTRAST CLINICAL INFORMATION: Intervertebral disc disorder with radiculopathy. COMPARISON: None TECHNIQUE: Helical non-contrast CT images were obtained through the lumbar spine without contrast. Multiplanar reformats were rendered and reviewed. This CT examination was performed using dose optimization techniques as appropriate, variously including the following: *Automated exposure control *Adjustment of mA and/or kV according to patient size (this includes techniques or standardized protocols for targeted exams where dose is matched to indication/reason for exam; i.e. extremities or head) *Use of iterative reconstruction technique DLP: 426 mGy-cm FINDINGS: The lumbar vertebral bodies maintain normal heights and alignment. There is moderate disc height loss at L4-L5. No fractures seen. Mild multilevel endplate osteophytes are noted. Significant atheromatous changes are noted involving the abdominal aorta and its branch vessels. There is a right common iliac artery stent. A right renal stent is also noted. There is severe stenosis of the left common iliac artery and severe stenosis of the left internal iliac artery origin. Cholecystectomy clips are noted in the gallbladder fossa. SPINAL LEVELS: L1-L2: Mild disc bulging. No spinal canal or neural foraminal stenosis. L2-L3: Disc bulging. Mild bilateral neural foraminal stenosis. No spinal canal stenosis. L3-L4: Disc bulging with epidural lipomatosis and mild facet arthropathy. Mild right more than left neural foraminal stenosis. No spinal canal stenosis. L4-L5: Disc bulging with facet arthropathy. Mild bilateral neural foraminal stenosis. No spinal canal stenosis. L5-S1: Disc bulging with moderate facet arthropathy. No spinal canal or neural foraminal stenosis. CT/CT lumbar spine w IV con IMPRESSION: 1. Mild multilevel degenerative spondylosis without significant narrowing of the spinal canal or neural foramina. 2. Significant atheromatous changes are noted involving the abdominal aorta and its branch vessels. There is severe stenosis of the left common iliac artery and severe stenosis of the left internal iliac artery origin.
[2022-07-14] MEDS: iohexoL 350 MG/ML 100 ML INFUS..BTL IV (09:29)
[2022-07-14 14:56] LABS: Creatinine POC 0.8 mg/dL (0.5-1.4); GFR POC 60
== END 2022-07-14 07:47 | disposition home or self-care (01) ==
LOC: HO.CT 07:46
PROVIDERS: PCP Internal Medicine; Visit Provider Internal Medicine
DX: M51.16 Intervertebral disc disorders with radiculopathy, lumbar region (principal)
CPT/HCPCS: 72132; 82565; Q9967

== ENCOUNTER 2022-07-27 13:03 | Outpatient (REF) | payer MEDICARE, MEDICAID, SELFPAY ==
[2022-07-27 16:22] LABS: Blood Urea Nitrogen 13 mg/dL (9-16); Estimated Glomerular Filt Rate 59
== END 2022-07-27 13:04 | disposition home or self-care (01) ==
LOC: HO.LAB 13:03
PROVIDERS: PCP Internal Medicine; Visit Provider Radiology Vascular & Interventional Radiology
DX: R79.89 Other specified abnormal findings of blood chemistry (principal); R94.4 Abnormal results of kidney function studies
CPT/HCPCS: 36415; 82565; 84520

== ENCOUNTER 2022-08-05 09:38 | Outpatient (REF) | payer MEDICARE, MEDICAID, SELFPAY ==
--- NOTE | ~2022-08-05 | CT_ITS ---
EXAMINATION: CT CHEST WITHOUT CONTRAST CLINICAL INFORMATION: Pulmonary nodule. COMPARISON: 03/04/2022 and PET/CT of 11/24/[address] scan of 11/07/2020. TECHNIQUE: Multidetector volumetric CT imaging of the chest was done. Axial MIP volume rendering provided. Sagittal and coronal reformatted images were obtained. This CT examination was performed using dose optimization techniques as appropriate, variously including the following: *Automated exposure control *Adjustment of mA and/or kV according to patient size (this includes techniques or standardized protocols for targeted exams where dose is matched to indication/reason for exam; i.e. extremities or head) *Use of iterative reconstruction technique DLP: 133 mGy-cm FINDINGS: LUNGS: Central airways are patent. Right lower lobe and hilar mass is seen to be causing some mass impression upon lower lobe bronchi as well as bronchial wall thickening within the right lower lobe with some more distal parenchymal disease. No bronchiectasis is appreciated. There are moderate changes of centrilobular emphysema within the upper lobes bilaterally. There are sub-4 mm densities seen bilaterally. There is a 5 mm noncalcified nodule seen within the left upper lobe on image [address] series #5. This is stable. There is a 5 mm noncalcified nodule seen within the left upper lobe on image 281 of 635. This is stable. There is a 4 mm noncalcified nodule seen within the left upper lobe on image 153 of 635. This is stable. There is a 4 mm noncalcified nodule seen within the left upper lobe adjacent to the major fissure on image 174 of 635. This is stable. Within the right lower lobe and hilum, there is a 3.8 x 2.8 x 3.8 cm soft tissue mass with peripheral spiculation which has increased in size from previous study where it measured approximately 2.3 cm in diameter. MEDIASTINUM: The mediastinum is normal. Heart normal size. No pericardial effusion. No thoracic aortic aneurysm. Visualized thyroid gland unremarkable. There is a 1.0 cm aortopulmonic window lymph node which has enlarged in size since previous study. There are nonpathologically enlarged other mediastinal lymph nodes which are more prominent than on prior study. Pacemaker in place. CORONARY ARTERY CALCIFICATION: Coronary artery calcification is present as well as coronary artery stent. PLEURA: There is a trace right pleural effusion. AXILLA: No lymphadenopathy. Left chest wall pacemaker powerpack present. UPPER ABDOMEN: Unremarkable. OSSEOUS STRUCTURES: There is a 7 mm nondestructive sclerotic lesion seen within the anterior right T12 vertebral body. There are 2 small right glenoid nondestructive sclerotic lesions. These are most likely benign bone islands. CT/CT chest wo IV con IMPRESSION: Progression in size and parenchymal disease within the right lower lobe with right lung mass adjacent to the hilum with hilar lymphadenopathy and enlarging mediastinal lymph nodes. Changes of centrilobular emphysema. Fleischner guidelines were followed.
== END 2022-08-05 09:39 | disposition home or self-care (01) ==
LOC: HO.CT 09:38
PROVIDERS: PCP Internal Medicine; Visit Provider Internal Medicine
DX: R91.8 Other nonspecific abnormal finding of lung field (principal)
CPT/HCPCS: 71250

== ENCOUNTER → 2022-09-03 10:13 | Outpatient (BNVA) | payer MEDICARE, MEDICAID, SELFPAY | PROVIDERS: PCP Internal Medicine; Visit Provider Surgery | DX: R91.1 Solitary pulmonary nodule (principal); R59.0 Localized enlarged lymph nodes | CPT/HCPCS: 99202 ==

== ENCOUNTER → 2022-09-08 12:39 | Outpatient (BNVA) | payer MEDICARE, MEDICAID, SELFPAY | PROVIDERS: PCP Internal Medicine; Visit Provider Internal Medicine Cardiovascular Disease | DX: Z01.810 Encounter for preprocedural cardiovascular examination (principal); I48.0 Paroxysmal atrial fibrillation; I20.8 Other forms of angina pectoris; I10 Essential (primary) hypertension | CPT/HCPCS: 93005; 99212 ==

== ENCOUNTER 2022-09-24 10:49 | Day surgery (SDC) | payer MEDICARE, MEDICAID, SELFPAY ==
[2022-09-20 15:18] VITALS: BMI 21.7
[2022-09-24] VITALS (9 sets, daily range): BP systolic 93–129; BP diastolic 45–77; PULSE 80–98; RESP 16–26; TEMP 36.2–36.9; O2SAT 95–99
--- NOTE | 2022-09-24 10:58 | P.CONAN_ITS ---
HPI - Anesthesia Eval Consult details Narrative: 67 yo male patient for Endoscopic Bronchial Ultrasound [facility] Active Problems Active Problems: All Active Problems (Updated 09/20/22 @ 15:11 by Maryse Olson RN) Stable angina (Acute) JOHNSTON (dyspnea on exertion) (Acute) ICD (implantable cardioverter-defibrillator) in place (Acute ~2018)- Last check 09/17/22. Reportedly OK Essential hypertension (Acute) CHF (congestive heart failure) (Acute) Hilar lymphadenopathy (Acute) Back pain (Acute) Right lower lobe pulmonary nodule (Acute) Compression fracture of body of thoracic vertebra (Acute) Preop cardiovascular exam (Acute) Pulmonary nodules (Acute) Nicotine dependence, unspecified, uncomplicated (Acute) COPD (chronic obstructive pulmonary disease) (Acute) PAF (paroxysmal atrial fibrillation) (Acute ~2021) Coronary artery disease (Acute) NICM (nonischemic cardiomyopathy) (Acute) Past Medical History Medical History BPH (benign prostatic hyperplasia) COPD (chronic obstructive pulmonary disease) Coronary artery disease History of CVA (cerebrovascular accident) (~2018) History of left bundle branch block History of OK (myocardial infarction) History of TIA (transient ischemic attack) (~2003) HTN (hypertension) NICM (nonischemic cardiomyopathy) Nicotine dependence, unspecified, uncomplicated PAF (paroxysmal atrial fibrillation) (~2021) Pulmonary nodules RADHA (renal artery stenosis) Restless leg syndrome Tubular adenoma of colon (~2006) Family History Family History Father No problems noted. Family history of problems with anesthesia: No Surgical History Surgical History History of back surgery (~1988) History of bronchoscopy (~2021) History of cardiac cath History of cholecystectomy (~2013) History of colonoscopy History of heart artery stent (~2019) History of implantable cardiac defibrillator (ICD) (~2018) History of stent insertion of renal artery (~2020) Status post insertion of iliac artery stent (~2018) History of Problems with Anesthesia: No Social History Social History Household Members: None Housing: Apartment Are you a primary rn managed care to a significant other at home: No Do you presently have visiting nurse or other home services: No Alcohol intake: current Alcohol intake frequency: holidays/special occasions only Patient Tobacco Use Status: Current everyday Tobacco user Tobacco use type: Cigarette Cigarettes Per Day: 5 Years Smoked: 55+ Second Hand Smoke Exposure: Yes Use of substances other than those prescribed or required for medical reasons: No Have you been hit, kicked, punched, or otherwise hurt by someone within the past year? If so, by whom?: No Are you DNR?: No Advance Directives: Yes Advance Directives Information Provided: No Advance Directives on File: Yes Advance Directives Date on File: 09/24/21 Recently lost weight without trying: Yes How much weight loss: 2-13 pounds Eating poorly because of decreased appetite: Yes Nutrition screen score: 4 Poor oral hygiene: No (full upper and lower dentures) service: No Current occupational status: retired [employer] Allergies Allergy/AdvReac Type Severity Reaction Status Date / Time cat dander [CATS] Allergy Intermediate Itchy Verified 09/20/22 14:53 Eyes, coughing Home Medications Medication Instructions Recorded Confirmed Last Taken Type gabapentin 300 mg capsule 300 mg PO BID 05/16/20 09/20/22 09/23/21 History omeprazole 20 mg capsule,delayed 20 mg PO DAILY 05/16/20 09/20/22 09/24/22 History release albuterol sulfate 90 mcg/actuation 2 puff inhalation Q4H PRN 08/25/20 09/20/22 Unknown History aerosol inhaler Respiratory Distress losartan 50 mg tablet 50 mg PO DAILY 06/17/21 09/08/22 09/24/21 History rosuvastatin 40 mg tablet 40 mg PO BEDTIME 06/17/21 09/20/22 09/24/21 History Exam Exam Date and Time: September 24, 2022 1058 Height,Weight and Vital Signs: Height 6 ft Weight 72.575 kg Vital Signs Temp Pulse Resp BP Pulse Ox O2 Del Method 09/24/22 12:15 86 17 09/24/22 12:07 97.2 F 80 16 129/77 99 Room Air Narrative Narrative: Date of Service: 08/05/22 Procedure(s): CT chest wo IV con Pulmonary nodule.? COMPARISON: 03/04/2022 and PET/CT of 11/24/[address] scan of 11/07/2020.? FINDINGS: LUNGS: Central airways are patent. Right lower lobe and hilar mass is seen to be causing some mass impression upon lower lobe bronchi as well as bronchial wall thickening within the right lower lobe with some more distal parenchymal disease. No bronchiectasis is appreciated. There are moderate changes of centrilobular emphysema within the upper lobes bilaterally. There are sub-4 mm densities seen bilaterally. There is a 5 mm noncalcified nodule seen within the left upper lobe on image [address] series #5. This is stable. There is a 5 mm noncalcified nodule seen within the left upper lobe on image 281 of 635. This is stable. There is a 4 mm noncalcified nodule seen within the left upper lobe on image 153 of 635. This is stable. There is a 4 mm noncalcified nodule seen within the left upper lobe adjacent to the major fissure on image 174 of 635. This is stable. Within the right lower lobe and hilum, there is a 3.8 x 2.8 x 3.8 cm soft tissue mass with peripheral spiculation which has increased in size from previous study where it measured approximately 2.3 cm in diameter. MEDIASTINUM: The mediastinum is normal. Heart normal size. No pericardial effusion. No thoracic aortic aneurysm. Visualized thyroid gland unremarkable. There is a 1.0 cm aortopulmonic window lymph node which has enlarged in size since previous study. There are nonpathologically enlarged other mediastinal lymph nodes which are more prominent than on prior study. Pacemaker in place. CORONARY ARTERY CALCIFICATION: Coronary artery calcification is present as well as coronary artery stent. PLEURA: There is a trace right pleural effusion.? AXILLA: No lymphadenopathy. Left chest wall pacemaker powerpack present. UPPER ABDOMEN: Unremarkable.? OSSEOUS STRUCTURES: There is a 7 mm nondestructive sclerotic lesion seen within the anterior right T12 vertebral body. There are 2 small right glenoid nondestructive sclerotic lesions. These are most likely benign bone islands. CT/CT chest wo IV con IMPRESSION: Progression in size and parenchymal disease within the right lower lobe with right lung mass adjacent to the hilum with hilar lymphadenopathy and enlarging mediastinal lymph nodes. ? Changes of centrilobular emphysema. ? ? Airway Mallampati Class: II TM Dist: >3cm Denture: Upper and Lower Heart: RRR Lungs: Distant. No appreciable wheeze. Coughing with deep breathing Assessment and Plan Assessment Anesthesia Assessment: Anesthesia Plan Discussed and Chart Reviewed Final Anesthetic Review Family History of Problems with Anesthesia: No History of Problems with Anesthesia: No NPO: Yes ASA Class: IV Final Preanesthetic Review: No Changes in Pt Med Stat, Meds/Allgs Chart Reviewed, Consent Obtained/Reviewed and Anes Risks/Benef Reviewed Patient Risk: Intermediate Procedure Risk: Low Assessment/Block/Sedation in SS: Assess/Block/Sedation-SS Anesthetic Plan Anesthetic Plan: GA Disposition: Standard PACU
--- NOTE | 2022-09-24 12:07 | PC.NURSE ---
called for a pre-op resp treatment
--- NOTE | 2022-09-24 12:08 | MHC.SHP ---
Pre-Procedural Eval Section A Date of Service: 09/24/22 The History & Physical has been completed within 30 days and I have reviewed it.: Yes Section B Chief Complaint: Localized enlarged lymph nodes Allergies: Allergies Allergy/AdvReac Type Severity Reaction Status Date / Time cat dander [CATS] Allergy Intermediate Itchy Verified 09/20/22 14:53 Eyes, coughing Plan I have reviewed the history and physical and performed a pertinent physical examination on my patient. No changes have occurred unless specified. I discussed the risks, benefits, and alternatives of the endobronchial ultrasound which he understood and agreed to proceed. Time Spent With Patient Time: Total time managing care of this patient today ____ minutes.
[2022-09-24] MEDS: Albuterol Sulfate (0.083%) 2.5 MG/3 ML VIAL.NEB INHALE (12:13)
--- NOTE | 2022-09-24 14:03 | W.PM.OPN ---
Operative Note Operative Note Date of Service: 09/24/22 Narrative: Preoperative diagnosis: Mediastinal lymphadenopathy/right hilar mass Postoperative diagnosis: Same Operation: Endobronchial ultrasound with biopsy of multiple lymph node stations and right hilar mass Surgeon: Miguelito Carranza MD Anesthesia: General Specimens: Mediastinal/hilar lymph nodes/right hilar mass EBL: Operation in detail: The patient was brought to the operating room, placed supine on the operative table, anesthesia monitor devices were placed, and the patient was intubated with an 8 and half endotracheal tube. A time-out was performed confirming the correct patient, site, and procedure. The Olympus endobronchial ultrasound scope was then inserted through the endotracheal tube and the airways were visualized down to the subsegmental level bilaterally. Findings are no endobronchial lesions and no secretions. The ultrasound was then applied to all 3 stations visualizing the lymph nodes and right hilar mass with the findings small to moderate size lymph nodes and the mass could be appreciated just at the very edge with the ultrasound. First, we visualized with ultrasound the right hilar mass and 3 attempted biopsies were taken with a 19 gauge Olympus endobronchial ultrasound biopsy needle. On-site preliminary were nondiagnostic and the remainder was sent for additional testing. the subcarinal lymph nodes in using a 19 gauge Olympus biopsy needle 3 passes were taking and sent for on-site evaluation. This process was then repeated with right right hilar lymph nodes. Findings to this point are nondiagnostic pending final pathology. Given the difficulty with visualization and moderate amount of blood clot now in the airways decided to stop at this point and await the final pathology assessment. The blood clot and blood was then evacuated. Hemostasis was then assured in the bronchoscope was removed. The patient tolerated the procedure well, was extubated in the operating room, and brought to the PACU in stable condition.
[2022-09-24] MEDS: fentaNYL citrate/PF 100 MCG/2 ML VIAL 25 MCG IVPUSH ×2 (14:22→14:27)
== END 2022-09-24 15:42 | disposition home or self-care (01) ==
PROVIDERS: PCP Internal Medicine; Visit Provider Surgery
PROC: (CPT 31653; principal; 2022-09-24 12:30)
DX: R59.0 Localized enlarged lymph nodes (principal); R91.8 Other nonspecific abnormal finding of lung field; J44.9 Chronic obstructive pulmonary disease, unspecified; I50.9 Heart failure, unspecified; I11.0 Hypertensive heart disease with heart failure; I25.10 Atherosclerotic heart disease of native coronary artery without angina pectoris; Z98.61 Coronary angioplasty status; I25.2 Old myocardial infarction; I48.0 Paroxysmal atrial fibrillation; Z95.810 Presence of automatic (implantable) cardiac defibrillator; I73.9 Peripheral vascular disease, unspecified; Z79.01 Long term (current) use of anticoagulants; Z79.51 Long term (current) use of inhaled steroids; Z79.899 Other long term (current) drug therapy; Z86.73 Personal history of transient ischemic attack (TIA), and cerebral infarction without residual deficits; F17.210 Nicotine dependence, cigarettes, uncomplicated
CPT/HCPCS: 31653; 88172; 88173; 88177; 88305; 94640; J0690; J1100; J2250; J2405; J3010

== ENCOUNTER → 2022-09-28 10:37 | Outpatient (BNVA) | payer MEDICARE, MEDICAID, SELFPAY | PROVIDERS: PCP Internal Medicine; Visit Provider Internal Medicine Pulmonary Disease | DX: J44.9 Chronic obstructive pulmonary disease, unspecified (principal); R06.00 Dyspnea, unspecified; R59.0 Localized enlarged lymph nodes | CPT/HCPCS: 94618; 99212 ==

== ENCOUNTER → 2022-10-01 10:55 | Outpatient (BNVA) | payer MEDICARE, MEDICAID, SELFPAY | PROVIDERS: PCP Internal Medicine; Visit Provider Surgery | DX: R91.1 Solitary pulmonary nodule (principal) | CPT/HCPCS: 99212 ==

== ENCOUNTER 2022-10-26 08:31 | Outpatient (REF) | payer MEDICARE, MEDICAID, SELFPAY ==
--- NOTE | ~2022-10-26 | PE_ITS ---
EXAMINATION: Fluorine-18 FDG PET/CT Scan CLINICAL INDICATION: Subsequent treatment management. Right lung mass. PROCEDURE: 85 minutes following the intravenous administration of 19.2 mCi of fluorine 18 FDG, images from the base of the skull to the mid thighs were obtained using a combined PET/CT scanner with CT scan based attenuation correction. No intravenous contrast was administered. Transverse, coronal, sagittal, and volume reconstruction projections were obtained. The patient's blood glucose as determined by a finger stick, was 79 mg/dl immediately prior to injection. The radiotracer was injected intravenously through left antecubital superficial vein, without any complications. Total CT exam dose-length product 291.28 mGy-cm * These CT images were obtained using dose optimization techniques as appropriate, variously including the following: Automated exposure control * Adjustment of mA and/or kV according to patient size (this includes techniques or standardized protocols for targeted exams where dose is matched to indication/reason for exam; i.e. extremities or head) * Use of iterative reconstruction technique COMPARISON: Most recent prior PET CT study done on 11/24/[address] of the chest done on 08/05/2022. FINDINGS: NECK AND VISUALIZED HEAD: No FDG avid focal disease. No significant change. THORAX: The index irregular solid central soft tissue mass along the posterior medial aspect of the right lower lobar bronchus as was documented on prior studies shows intense FDG avidity with SUV max of 7.0 (100/267), producing partial collapse consolidation of the right lower lobe of the lung, highly suspicious for malignancy. This would be amenable for bronchoscopic biopsy. The exact size of the mass is difficult to measure given its ill-defined outline and associated partial collapse consolidation as well as lack of cleavage plane between the mass and the adjacent part of the mediastinum, grossly measures 4.7 x 4.3 cm (102/267). Specific note is made of ill-defined patchy mild FDG avid nodular opacities within the partially aerated right lower lobe of the lung, may represent postobstructive pneumonia. The remainder of the lung santana otherwise appear unremarkable with no additional sites of disease. No FDG avid mediastinal, hilar or axillary or internal mammary lymphadenopathy or pericardial effusion. Trace amount of non-FDG avid simple appearing right-sided pleural effusion is noted at mid right hemithorax, minimally progressed since the prior study dated 11/24/2021. ABDOMEN AND PELVIS: No FDG avid liver or adrenal or splenic disease to suspect metastasis. The gallbladder is surgically absent. The pancreas appears unremarkable. Physiologic radiotracer activities are present within the bowel including the stomach, and both kidneys and the bladder. MUSCULOSKELETAL: Tiny punctate focus of sclerosis involving the right ischium without FDG avidity likely represent a bone island. Subtle focal area of sclerosis without FDG avidity is also noted within the left iliac bone (210/267) without any FDG avidity possibly represent bone islands as well. No definite osseous metastases. VASCULAR: Atherosclerotic disease of the aorta and its branches including evidence of by common iliac arterial stent. No evidence of aneurysm. Right renal arterial stent is also present. SUV max OF MEDIASTINAL BLOOD POOL: 2.6 SUV max OF LIVER: 2.6 PET/PET CT fusion skull to thigh IMPRESSION: 1. The index irregular solid central soft tissue mass along the posterior medial aspect of the right lower lobar bronchus as was documented on prior studies shows intense FDG avidity with SUV max of 7.0, producing partial collapse consolidation of the right lower lobe of the lung, highly suspicious for malignancy. This would be amenable for bronchoscopic biopsy. Accurate estimation of the size of the mass is difficult given its obscure margin, grossly measures 4.7 x 4.3 cm. 2. Note is also made of ill-defined patchy multifocal mild FDG avid nodular opacities within the partially aerated right lower lobe of the lung, may represent postobstructive pneumonia related changes. 3. No additional sites of disease within the remainder of the lung santana and no evidence of any FDG avid mediastinal, hilar, axillary or internal mammary lymphadenopathy or pericardial effusion. Trace amount of non-FDG avid simple appearing right-sided pleural effusion is noted at right mid hemithorax, minimally progressed since the prior study dated 11/24/2021. 4. No evidence of any extrathoracic disease to suspect metastasis within the abdomen and pelvis and the head and neck region.
== END 2022-10-26 08:32 | disposition home or self-care (01) ==
LOC: HO.PET 08:31
PROVIDERS: PCP Internal Medicine; Visit Provider Internal Medicine
DX: Z13.89 Encounter for screening for other disorder (principal)

== ENCOUNTER 2022-11-08 11:43 | Outpatient (REF) | payer MEDICARE, MEDICAID, SELFPAY ==
[2022-11-08 13:03] LABS: Blood Urea Nitrogen 17 mg/dL (9-16); Estimated Glomerular Filt Rate > 60
== END 2022-11-08 11:44 | disposition home or self-care (01) ==
LOC: HO.LAB 11:43
PROVIDERS: PCP Physician Assistant Medical; Visit Provider Surgery
DX: R91.1 Solitary pulmonary nodule (principal)
CPT/HCPCS: 36415; 82565; 84520

== ENCOUNTER 2022-11-10 13:19 | Outpatient (REF) | payer MEDICARE, MEDICAID, SELFPAY ==
--- NOTE | ~2022-11-10 | CT_ITS ---
EXAMINATION: CT CHEST WITH CONTRAST CLINICAL INFORMATION: Pulmonary nodule. COMPARISON: Previous chest CT scans, most recent July 2022. TECHNIQUE: Multidetector volumetric CT imaging of the chest was obtained after the administration of 65 mL of Omnipaque 350 intravenous contrast without immediate adverse reactions. Axial MIP volume rendering provided. Sagittal and coronal reformatted images were obtained. This CT examination was performed using dose optimization techniques as appropriate, variously including the following: *Automated exposure control *Adjustment of mA and/or kV according to patient size (this includes techniques or standardized protocols for targeted exams where dose is matched to indication/reason for exam; i.e. extremities or head) *Use of iterative reconstruction technique DLP: 105 mGy-cm FINDINGS: LUNGS: Right central infrahilar mass does not appear appreciably changed. This measures approximately 3.8 x 3.2 cm in AP and transverse dimension, axial image 120 series 7. This extends to the left atrium and right side of the esophagus. This narrows the right inferior pulmonary vein. This is heterogeneous in attenuation and may be partially cavitary. There is adjacent bronchial wall thickening of the proximal right middle and right lower lobe bronchi. This is difficult to separate with right hilar lymphadenopathy. There is more peripheral increased attenuation in the right lower lobe and increased interstitial markings. Appearance is questionable for lymphangitic spread. There are small pulmonary nodules that are stable in the right lower lobe, largest measuring 5 mm adjacent to the spine axial image 148 series 7 and adjacent to the major fissure axial image 140 series 7. There is evidence of emphysema. There are small bilateral upper lobe nodules, left greater than right that are stable. No new nodule. MEDIASTINUM: Normal heart size. Coronary artery calcification and question coronary artery stent. Right hilar lymphadenopathy inseparable from the central hilar mass. Small mediastinal lymph nodes. No pericardial effusion. Left subclavian pacemaker AICD device. PLEURA: Small right pleural effusion. This is slightly increased from previous exam. No left pleural effusion. AXILLA: No lymphadenopathy. UPPER ABDOMEN: Unremarkable. OSSEOUS STRUCTURES: There is a sclerotic lesion in the T12 vertebral body that is stable. There are degenerative changes of the spine. CT/CT chest w IV con IMPRESSION: No appreciable change in the central/infrahilar right lung mass involving the right middle and right lower lobes, extending to the left atrium and right side of the esophagus and narrowing the right inferior pulmonary vein from most recent chest CT July 2022. More peripheral right lower lobe increased attenuation and interlobular septal thickening questionable for lymphangitic spread. Small pulmonary nodules are stable. Emphysema. Small right pleural effusion slightly increased from July 2022. Fleischner guidelines were followed.
[2022-11-10] MEDS: iohexoL 350 MG/ML 100 ML INFUS..BTL IV (14:01)
== END 2022-11-10 13:20 | disposition home or self-care (01) ==
LOC: HO.CT 13:19
PROVIDERS: PCP Physician Assistant Medical; Visit Provider Surgery
DX: R91.1 Solitary pulmonary nodule (principal)
CPT/HCPCS: 71260; Q9967

== ENCOUNTER 2022-11-12 10:17 | Outpatient (REF) | payer MEDICARE, MEDICAID, SELFPAY ==
--- NOTE | 2022-11-12 12:55 | PFT_ITS ---
Forced vital capacity is 79%, FEV1 47%, FEV1/FVC ratio is 45. LWC55-63 14% and MVV is 44%. Post bronchodilator therapy, there is no significant change. Total lung capacity 84%, residual volume 100%. Diffusion capacity 30%. CONCLUSION: There is evidence of severe obstructive airway disorder. There is no response to bronchodilator therapy. Clinical correlation is recommended. MD LAYLA Church/MODL / [phone]
== END 2022-11-12 10:18 | disposition home or self-care (01) ==
LOC: HO.RESP 10:17
PROVIDERS: PCP Physician Assistant Medical; Visit Provider Surgery
DX: R91.1 Solitary pulmonary nodule (principal)
CPT/HCPCS: 94060; 94727; 94729; 99212

== ENCOUNTER → 2022-12-16 13:31 | Outpatient (BNVA) | payer MEDICARE, MEDICAID, SELFPAY | PROVIDERS: PCP Physician Assistant Medical; Visit Provider Nurse Practitioner Family | DX: Z01.810 Encounter for preprocedural cardiovascular examination (principal); I25.10 Atherosclerotic heart disease of native coronary artery without angina pectoris; I42.8 Other cardiomyopathies; I48.0 Paroxysmal atrial fibrillation; I50.9 Heart failure, unspecified; I73.9 Peripheral vascular disease, unspecified; I25.2 Old myocardial infarction; Z79.01 Long term (current) use of anticoagulants; Z79.899 Other long term (current) drug therapy; Z95.810 Presence of automatic (implantable) cardiac defibrillator | CPT/HCPCS: 93005; 99212 ==

== ENCOUNTER → 2022-12-28 13:33 | Outpatient (REF) | payer MEDICARE, MEDICAID, SELFPAY ==
--- NOTE | 2022-12-28 13:36 | CA_ITS ---
Transthoracic Echocardiogram Patient (Last, First, Middle): Tristen Dupree A Gender: Male Date of : 1955 Age: 67 Procedure Date: 12/28/2022 Procedure Type: Transthoracic Echocardiogram Location: OP Height: 182.88 cm Weight: 68.49 kg BSA: 1.89 m2 Heart Rate: bpm BP: 146 / 78 mmHg Military Technician: TO Referring MD: Shakila Moreira GAMBLING DEALERLemuel Symptoms: I42.8 - Other cardiomyopathies Study Quality: Fair Conclusions: - The left ventricular systolic function is low normal. The calculated ejection fraction is 53% by biplane method. - The basal inferior and basal inferolateral segments are hypokinetic. - There is mild to moderate tricuspid valve regurgitation. - Mild to moderate pulmonary hypertension is present. Findings Left Ventricle Normal left ventricular cavity size. There is mildly increased left ventricular wall thickness. The left ventricular systolic function is low normal. The calculated ejection fraction is 53% by biplane method. There is evidence of regional wall motion abnormalities. Diastolic function is normal for age. LV peak GLS -16.9%. Wall Motion Rest Echo Findings The basal inferior and basal inferolateral segments are hypokinetic. Right Ventricle Normal right ventricular cavity size and systolic function. There is a pacemaker wire seen in the right ventricle. Atria Both atria are normal in size. Aortic Valve There is a normal trileaflet aortic valve. There is no aortic valve stenosis. There is no aortic valve regurgitation. Mitral Valve The mitral valve appears normal. There is mild mitral valve regurgitation. There is no mitral valve stenosis. Pulmonic Valve The pulmonic valve is likely normal. Tricuspid Valve There is mild to moderate tricuspid valve regurgitation. Mild to moderate pulmonary hypertension is present. Great Vessels The asc aorta is normal in size. Venous The inferior vena cava is mildly dilated and collapses greater than 50% with inspiration. Pericardium/Pleural There is no evidence of pericardial effusion. Prior Study Comparison Changes noted compared to prior study dated: 10/24/2019. Improved LVEF. See comments on wall motion. Increase in RVSP. Measurements 2D Linear Measurements IVSd: 1.21 0.6-0.9/0.6-1.0 cm LVIDd: 4.24 3.9-5.3/4.2-5.9 cm LVIDd Index: 2.24 2.4-3.2/2.2-3.1 cm/m2 LVIDs: 3.59 2.0-3.6 cm LVPWd: 1.08 0.7-1.1 cm LA Diam: 3.40 2.7-3.8/3.0-4.0 cm LAIDs Index: 1.80 1.5-2.3 cm/m2 LV Mass: 210.31 67-162/88-224 g LV Mass Index: 111.27 43-95/49-115 g/m2 LVOT Diam: 2.20 3.0+(-)1.3 cm 2D Systolic Function EF 4C: 51.60 >55% EF 2C: 55.40 >55% EF BiP: 53.40 >55% Mitral Valve MV Pk E: 0.70 MV PK A: 0.51 MV Decel Time: 214.00 E/A: 1.40 E'Lateral: 7.72 E'Medial: 6.42 E/E' Med: 10.90 E/E' Lat: 9.00 PHT: 63.00 MVA PHT: 3.49 Decel Dent: 3.26 Aortic Valve AoV Pk Johnny: 1.15 AoV Mn Johnny: 0.82 AoV VTI: 0.26 AoV Pk Grad: 5.00 Aov Mn Grad: 3.00 DALY Cont.VTI: 2.63 LVOT LVOT Pk Johnny: 0.89 LVOT Mn Johnny: 0.55 LVOT VTI: 0.18 LVOT Pk Grad: 3.00 LVOT Mn Grad: 1.00 LVOT Diam: 2.20 LVOT Area: 3.80 Diastolic Function MV Pk E: 0.70 MV Pk A: 0.51 E/A: 1.40 E'Medial: 6.42 E/E' Med: 10.90 E' Laterial: 7.72 E/E' Lat: 9.00 Right Ventricle TAPSE (mm): 26.40 TVS' Johnny: 13.50 Tricuspid Valve TR Pk Johnny: 3.33 TR Pk Grad: 44.00 RA Press: 8.00 RVSP: 52.00 Great Vessels Aorta Sinus of Valsalva: 3.49 2.0-3.[address] [place]: 2.29 1.7-3.4 cm Ao Asc: 3.20 2.1-3.4 cm Updated in Other Vendor System with Status of Final Jb Diaz MD electronically signed on 12/28/2022 4:10:05 PM with status of Final
== END ==
LOC: HO.CARD 13:33
PROVIDERS: PCP Internal Medicine; Visit Provider Nurse Practitioner Family
DX: Z01.810 Encounter for preprocedural cardiovascular examination (principal); I42.8 Other cardiomyopathies; I25.10 Atherosclerotic heart disease of native coronary artery without angina pectoris
CPT/HCPCS: 93306; 93356

== ENCOUNTER → 2023-01-28 10:18 | Outpatient (BNVA) | payer MEDICARE, MEDICAID, SELFPAY | PROVIDERS: PCP Internal Medicine; Visit Provider Surgery | DX: R91.1 Solitary pulmonary nodule (principal) | CPT/HCPCS: 99212 ==

== ENCOUNTER 2023-02-11 11:59 | Outpatient (REF) | payer MEDICARE, MEDICAID, SELFPAY ==
--- NOTE | ~2023-02-11 | XR_ITS ---
EXAMINATION: XR chest 2V CLINICAL INFORMATION: Reason for Exam Lung tumor COMPARISON: Prior chest x-ray December 2021 TECHNIQUE: XR chest 2V Lungs and Yuly: Newly developed mild partial opacification right lung base right infrahilar opacity correlate with patient's known lung mass which was described on recent CT from October 2022. Pleura: Small subpulmonic right pleural effusion developed. Heart: Cardiac device over the left hemithorax unchanged. Mediastinum: The mediastinum is within normal limits.. Bones: Skeletal structures included are normal for patient's age. XR/XR chest 2V IMPRESSION: * Opacification, mass right lower lobe right infrahilar region correlate with the mass seen on recent CT scan from 11/10/2022. * Newly developed small subpulmonic right pleural effusion. * No pneumothorax.
== END 2023-02-11 12:00 | disposition home or self-care (01) ==
LOC: HO.LAB 11:59
PROVIDERS: PCP Internal Medicine; Visit Provider Internal Medicine
DX: D49.1 Neoplasm of unspecified behavior of respiratory system (principal)
CPT/HCPCS: 71046

== ENCOUNTER → 2023-03-14 23:59 | Outpatient (BNV) | payer MEDICARE, MEDICAID, SELFPAY ==
--- NOTE | 2023-03-28 09:33 | MHC.OFFVIS ---
Intake Intake Visit Reasons: Remote HF Monitoring- [facility] Allergies cat dander [CATS] Allergy (Intermediate, Verified 01/28/23 10:33) Itchy Eyes, coughing PFSH Medical History BPH (benign prostatic hyperplasia) COPD (chronic obstructive pulmonary disease) Coronary artery disease History of CVA (cerebrovascular accident) (~2018) History of left bundle branch block History of WA (myocardial infarction) History of TIA (transient ischemic attack) (~2003) HTN (hypertension) NICM (nonischemic cardiomyopathy) Nicotine dependence, unspecified, uncomplicated PAF (paroxysmal atrial fibrillation) (~2021) Pulmonary nodules RADHA (renal artery stenosis) Restless leg syndrome Tubular adenoma of colon (~2006) Surgical History History of back surgery (~1988) History of bronchoscopy (~2021) History of cardiac cath History of cholecystectomy (~2013) History of colonoscopy History of heart artery stent (~2019) History of implantable cardiac defibrillator (ICD) (~2018) History of stent insertion of renal artery (~2020) Status post insertion of iliac artery stent (~2018) Family History Father No problems noted. Social History Household Members: None Housing: Apartment Are you a primary care management specialist to a significant other at home: No Do you presently have visiting nurse or other home services: No Alcohol intake: current Alcohol intake frequency: holidays/special occasions only Patient Tobacco Use Status: Current everyday Tobacco user Tobacco use type: Cigarette Cigarettes Per Day: 5 Years Smoked: 55+ Second Hand Smoke Exposure: Yes Advance Directives Date on File: 09/24/21 service: No Current occupational status: retired Office Procedures Cardiac Device Check Cardiac Device Check Details: Heart failure monitoring. Stable thoracic impedance. [id number] Cardiac Device Interrogation, cardio physiologic monitor Procedure code (CPT) selection complete Assessment & Plan Assessment & Plan (1) CHF (congestive heart failure): Code(s): I50.9 - Heart failure, unspecified Coding Level of Care Code Procedure Only Diagnoses CHF (congestive heart failure) I50.9 CPT Codes Cardiac Device Check - Cardiac Device 15: [id number] Cardiac Device Interrogation, cardio physiologic monitor ([id number])
== END ==
PROVIDERS: PCP Internal Medicine; Visit Provider Internal Medicine Cardiovascular Disease
DX: I50.9 Heart failure, unspecified (principal)
CPT/HCPCS: 93297

== ENCOUNTER → 2023-04-06 13:33 | Outpatient (BNVA) | payer MEDICARE, MEDICAID, SELFPAY | PROVIDERS: PCP Internal Medicine; Referring Provider Internal Medicine; Visit Provider Internal Medicine Cardiovascular Disease | DX: I20.8 Other forms of angina pectoris (principal); I10 Essential (primary) hypertension; I48.0 Paroxysmal atrial fibrillation | CPT/HCPCS: 93005; 99212 ==

== ENCOUNTER 2023-04-06 13:34 | Outpatient (AMB) | payer MEDICARE, MEDICAID, SELFPAY ==
[2023-04-06 13:42] VITALS: BP 136/84; PULSE 67; BMI 21.0
--- NOTE | 2023-04-06 13:42 | A.OFFVIS_ITS ---
Intake Vital Signs 04/06/23 13:42 Height 6 ft Weight 154 lb 12.232 oz BMI 21.0 BP 136/84 Blood Pressure Location Lt brachial Position Sitting Pulse 67 Pulse Source Monitor Intake Visit Reasons: 3 mth f/up Intake Note: 3 month follow up with EKG. Commercial Leasing Agent Required: No Accompanied by: Self / Same As Patient Allergies cat dander [CATS] Allergy (Intermediate, Verified 04/06/23 13:44) Itchy Eyes, coughing Medication List - Last Reconciled 04/06/23 by Bernard Arnold MD albuterol sulfate 90 mcg/actuation 2 puffs inhalation Q4H PRN amiodarone 200 mg PO DAILY apixaban (Eliquis) 5 mg PO BID izhacwortzr-nvnwzklkh-kkhxmpon 100-62.5-25 mcg (Trelegy Ellipta) 1 inh inhalation DAILY 30 days furosemide 20 mg PO DAILY gabapentin 300 mg PO BID ipratropium-albuterol 0.5 mg-3 mg(2.5 mg base)/3 mL 3 mL inhalation Q6H PRN 30 days losartan 50 mg PO DAILY nitroglycerin 0.4 mg sublingual Q5M PRN omeprazole 20 mg PO DAILY ranolazine ER 500 mg PO BID 30 days rosuvastatin 40 mg PO BEDTIME HPI HPI Comments History of Present Illness Details Pleasant 67-year-old gentleman here for follow-up. He has complex vascular history with cardiomyopathy and coronary artery disease. He underwent LAD PCI and CRTD with improvement in ejection fraction. He also had peripheral vascular disease and previous interventions. Also has renal artery stenosis for which he underwent stenting by Dr. Junaid Ryan. He had atrial fibrillation and was admitted to be loaded with sotalol. Subsequent to that he had more episodes of sotalol and dose was increased. After that he had device interrogation which showed run of ventricular tachycardia. At this stage we stop the sotalol and a washout period of 2 days and then loaded him with amiodarone. In the interim he had CT scan of his chest which with concern for right-sided lung cancer. He had PET-CT which confirmed concern for malignancy as well as right-sided lymph node. He had lymph node biopsy which apparently is negative at this point. He is following closely with pulmonology. 04/06/23: He returns for follow-up today. He has been referred to [facility] by thoracic surgery and apparently underwent biopsy there confirming by his report adenocarcinoma of the lung. He is undergoing chemotherapy and will receive immunotherapy also. His oxygen saturations were low and he has been started on 24/7 supplemental oxygen at this point. He also had thoracentesis performed on the right lung. His denying any chest discomfort and his chest tightness that he was experiencing before has improved after using supplemental oxygen. He is taking medications regularly. No bleeding concerns. He will be holding apixaban for 48 hours because he will have a chemotherapy port placement done at [facility] next week. [facility] Medical History BPH (benign prostatic hyperplasia) COPD (chronic obstructive pulmonary disease) Coronary artery disease History of CVA (cerebrovascular accident) (~2018) History of left bundle branch block History of MT (myocardial infarction) History of TIA (transient ischemic attack) (~2003) HTN (hypertension) NICM (nonischemic cardiomyopathy) Nicotine dependence, unspecified, uncomplicated PAF (paroxysmal atrial fibrillation) (~2021) Pulmonary nodules RADHA (renal artery stenosis) Restless leg syndrome Tubular adenoma of colon (~2006) Surgical History History of back surgery (~1988) History of bronchoscopy (~2021) History of cardiac cath History of cholecystectomy (~2013) History of colonoscopy History of heart artery stent (~2019) History of implantable cardiac defibrillator (ICD) (~2018) History of stent insertion of renal artery (~2020) Status post insertion of iliac artery stent (~2018) Family History Father No problems noted. Social History Household Members: None Housing: Apartment Are you a primary care worker to a significant other at home: No Do you presently have visiting nurse or other home services: No Alcohol intake: current Alcohol intake frequency: holidays/special occasions only Patient Tobacco Use Status: Current everyday Tobacco user Tobacco use type: Cigarette Cigarettes Per Day: 5 Years Smoked: 55+ Second Hand Smoke Exposure: Yes Advance Directives Date on File: 09/24/21 service: No Current occupational status: retired Review of Systems Const Denies weakness ENT Denies dizziness Card Denies chest pain, Denies chest pain with activity, Denies syncope, Denies rapid heart rate, Denies pedal edema, Denies edema, Denies leg edema, Denies lightheadedness, Denies palpitations, Denies dyspnea, Denies dyspnea on exertion and Denies orthopnea Resp Denies cough, Denies dyspnea and Denies dyspnea on exertion GI Denies hematochezia and Denies change in stool character Musc Denies abnormal gait, Denies muscle cramps, Denies muscle weakness, Denies numbness, Denies radiating pain into limb and Denies tingling Neuro Denies abnormal gait, Denies dizziness, Denies syncope, Denies numbness, Denies tingling and Denies weakness Endo Denies palpitations Physical Exam Vital Signs: Last Vital Signs Pulse 67 04/06/23 13:42 BP 136/84 04/06/23 13:42 BMI result Body Mass Index 21.0 GENERAL APPEARANCE: In no distress. On supplemental oxygen. NECK: no carotid bruit, no jugular venous distention. SKIN: no suspicious lesions, warm and dry. HEART: no murmurs, regular rate and rhythm. LUNGS: Few crackles at bases. ABDOMEN: soft, nontender. EXTREMITIES: no edema. PERIPHERAL PULSES: equal. NEUROLOGIC: No gross deficits, AAO X 3 Office Procedures EKG Details: Sinus rhythm 67 beats per minute, atrial sensed V paced rhythm with QRS duration 118 milliseconds, QTc 445 msec. [id number], Complete Assessment & Plan Assessment & Plan (1) Stable angina: Code(s): I20.8 - Other forms of angina pectoris (2) Essential hypertension: Code(s): I10 - Essential (primary) hypertension (3) PAF (paroxysmal atrial fibrillation): Onset Date: ~2021 Code(s): I48.0 - Paroxysmal atrial fibrillation Plan [age] year gentleman who is here for follow-up. He has background history of nonischemic cardiomyopathy for which he underwent MDS NURSE-D. His ejection fraction improved after that. He also had LAD PCI in the past. He has been stable from cardiovascular point of view. He had paroxysmal atrial fibrillation which has been controlled with amiodarone at this stage. He is on apixaban for stroke prevention. He was given Ranexa previously by pulmonology but due to interaction between Ranexa and amiodarone he was advised not to use it and he has not been using it. Blood pressure control is good. He is undergoing chemotherapy and immune therapy and will have repeat imaging of his lungs to see if he can have lung resection. From cardiovascular point of view he is stable. He is intermediate risk for perioperative complications whenever he goes for lung resection. Can hold apixaban for chemo port placement. Thank you for allowing me to participate in the care of your patient. Please feel free to contact me if you have any questions. Medications: Discontinued ranolazine ER Discontinued Reason: Doctor's Order 500 mg PO BID 60 tabs 6RF 30 days Coding Level of Care Code Procedure Only Diagnoses Stable angina I20.8 Essential hypertension I10 PAF (paroxysmal atrial fibrillation) I48.0 CPT Codes EKG - CPT: 10819-[id number], Complete ([id number])
== END 2023-04-06 14:16 | disposition home or self-care (01) ==
PROVIDERS: PCP Internal Medicine; Referring Provider Internal Medicine; Visit Provider Internal Medicine Cardiovascular Disease
DX: I20.8 Other forms of angina pectoris (principal); I10 Essential (primary) hypertension; I48.0 Paroxysmal atrial fibrillation
CPT/HCPCS: 93010; 99213

== ENCOUNTER 2023-04-11 09:53 | Emergency (ER) | payer MEDICARE, MEDICAID, SELFPAY ==
--- NOTE | ~2023-04-11 | XR_ITS ---
EXAMINATION: XR CHEST CLINICAL INFORMATION: Pleural effusion. COMPARISON: 02/11/[address] scan dated 02/11/2023. PET/CT scan dated 10/26/2022. TECHNIQUE: 2 views of the chest were obtained. FINDINGS: There is a small right pleural effusion. Increased markings are seen in the right infrahilar region. The left lung is clear. The heart and mediastinal structures are unremarkable. XR/XR chest 2V IMPRESSION: Persistent small right pleural effusion with mild interval increase. Persistent fullness in the right infrahilar region consistent with the patient's known mass in this region. Correlate with previous CT and PET CT scan studies.
[2023-04-11 09:56] VITALS: BP 100/68; PULSE 105; RESP 26; TEMP 36.6; O2SAT 100; BMI 19.7
--- NOTE | 2023-04-11 10:24 | ED_ITS ---
HPI - General Adult General Chief complaint: General Medical Stated complaint: hard time breathing Time Seen by Provider: 04/11/23 10:23 Source: patient Limitations: no limitations History of Present Illness HPI narrative: This is a 67 years old male with history of stage III adenocarcinoma of the lungs with a right-sided pleural effusion presented to the emergency department complaining of nausea vomiting malaise and increasing shortness of breath. He was scheduled to have thoracentesis of the right pleural effusion in [place] today. Onset (ago): day(s) (3) Location: chest Radiation: non-radiation Severity: moderate Pain Consistency: constant Relieving factors: none Related Data Home Medications Medication Instructions Recorded Confirmed gabapentin 300 mg capsule 300 mg PO BID 05/16/20 04/06/23 omeprazole 20 mg capsule,delayed 20 mg PO DAILY 05/16/20 04/06/23 release albuterol sulfate 90 mcg/actuation 2 puff inhalation Q4H PRN 08/25/20 04/06/23 aerosol inhaler Respiratory Distress losartan 50 mg tablet 50 mg PO DAILY 06/17/21 04/06/23 Previous Rx's Medication Instructions Recorded apixaban 5 mg tablet (Eliquis) 5 mg PO BID #60 tabs 09/23/21 fluticasone fur. 100 mcg-umeclid 1 inh inhalation DAILY 30 days #1 04/06/22 62.5 mcg-vilant 25 mcg ea inhalat.powder (Trelegy Ellipta) ipratropium 0.5 mg-albuterol 3 mg 3 ml inhalation Q6H PRN wheezing 04/06/22 (2.5 mg base)/3 mL nebulization 30 days #270 mL soln nitroglycerin 0.4 mg sublingual 0.4 mg sublingual Q5M PRN chest 02/28/23 tablet pain #25 tabs rosuvastatin 40 mg tablet 40 mg PO BEDTIME #90 tabs 03/03/23 amiodarone 200 mg tablet 200 mg PO DAILY #90 tabs 04/06/23 furosemide 20 mg tablet 20 mg PO DAILY #90 tabs 04/06/23 Allergies Allergy/AdvReac Type Severity Reaction Status Date / Time cat dander [CATS] Allergy Intermediate Itchy Verified 04/11/23 09:55 Eyes, coughing Review of Systems Cardiovascular: Cardiovascular: Reports no additional cardiovascular complaints Respiratory: Respiratory: Reports no additional respiratory complaints Musculoskeletal: Musculoskeletal: Reports no additional musculoskeletal complaints [facility] Past Medical History [facility] Narrative: Lung cancer stage III Medical History BPH (benign prostatic hyperplasia) COPD (chronic obstructive pulmonary disease) Coronary artery disease History of CVA (cerebrovascular accident) (~2018) History of left bundle branch block History of [place] (myocardial infarction) History of TIA (transient ischemic attack) (~2003) HTN (hypertension) NICM (nonischemic cardiomyopathy) Nicotine dependence, unspecified, uncomplicated PAF (paroxysmal atrial fibrillation) (~2021) Pulmonary nodules RADHA (renal artery stenosis) Restless leg syndrome Tubular adenoma of colon (~2006) Surgical History History of back surgery (~1988) History of bronchoscopy (~2021) History of cardiac cath History of cholecystectomy (~2013) History of colonoscopy History of heart artery stent (~2019) History of implantable cardiac defibrillator (ICD) (~2018) History of stent insertion of renal artery (~2020) Status post insertion of iliac artery stent (~2018) Family History Family History Father No problems noted. Social History Social History Household Members: None Housing: Apartment Are you a primary career resource specialist to a significant other at home: No Do you presently have visiting nurse or other home services: No Alcohol intake: current Alcohol intake frequency: holidays/special occasions only Patient Tobacco Use Status: Current everyday Tobacco user Tobacco use type: Cigarette Cigarettes Per Day: 5 Years Smoked: 55+ Second Hand Smoke Exposure: Yes Advance Directives: Yes Advance Directives on File: Yes Advance Directives Date on File: 09/24/21 service: No Current occupational status: retired Physical Exam ED Vital Signs: Vital Signs - 24 hr 04/11/23 09:56 04/11/23 11:11 04/11/23 11:53 Temperature 98 F 98.1 F Pulse Rate 105 H 70 96 Respiratory Rate 26 H 18 16 Blood Pressure 100/68 131/74 141/55 H Pulse Oximetry 100 98 98 Oxygen Delivery Method Nasal Cannula Room Air Nasal Cannula Oxygen Flow Rate 2 04/11/23 12:06 Temperature Pulse Rate 101 H Respiratory Rate 16 Blood Pressure Pulse Oximetry Oxygen Delivery Method Oxygen Flow Rate BMI result Body Mass Index 19.7 Const General: cooperative Nutritional Appearance: cachectic Orientation/consciousness: patient oriented x3 HENMT Head: Yes normal to inspection Face and sinus: Yes normal facial exam Mouth: Normal oral and palatal mucosa present Throat: Yes posterior oropharynx normal Neck Neck: Yes normal visual inspection Chest Chest palpation & inspection: normal inspection of the chest Resp Auscultation: rhonchi Cardio Jugular venous distension: no JVD Rate: regular rate Rhythm: regular rhythm GI Inspection: Yes normal to inspection Palpation (GI): Soft to palpation Auscultation: normal bowel sounds Skin General skin exam: no rashes or lesions noted, elasticity normal and turgor normal Lesions: no lesions Rashes: no rashes Neuro General: patient oriented x3 Cranial nerves: Yes CN's II-XII intact bilaterally Cognition (Neuro): normal cognition Course Reevaluation(s) Reevaluation #1: At this time the patient is feeling much better, I discussed with the patient admission, the patient was to be discharged home does no want to stay Time: 13:26 Medications Administered Generic Name Dose Route Start Last Admin Trade Name Freq PRN Reason Stop Dose Admin Sodium Chloride 1,000 mls @ 100 mls/hr 04/11/23 10:30 04/11/23 11:07 Ns IVCONT 100 mls/hr .Q10H BERNADETTE Administration Discontinued Medications Generic Name Dose Route Start Last Admin Trade Name Freq PRN Reason Stop Dose Admin Albuterol/Ipratropium 3 ml 04/11/23 11:59 04/11/23 12:06 Albuterol/Iprat 2.5/0.5mg 3 Ml Ampul.Neb INHALE 04/11/23 12:00 3 ml ONCE ONE Administration Methylprednisolone Sodium Succinate 125 mg 04/11/23 11:59 04/11/23 13:15 Methylprednisolone Sod Succ 125 Mg/2 Ml Vial IVPUSH 04/11/23 12:00 125 mg ONCE ONE Administration Ondansetron HCl 4 mg 04/11/23 10:23 04/11/23 11:06 Ondansetron Hcl 4 Mg/2 Ml Vial IVPUSH 04/11/23 10:24 4 mg ONCE ONE Administration Medical Decision Making Medical Decision Making MDM Narrative: Patient presented with shortness of breath nausea vomiting as history of adenocarcinoma of the lungs, will proceed with a chest x-ray IV fluids and reassessed Differential Diagnosis Differential Diagnoses: The differential diagnosis associated with the presentation includes Pneumonia/pneumothorax/pleural effusion Admission/Observation Consideration of admission/observation: Escalation of care including admission/observation considered I considered admission I discussed this with the patient the patient is refusing admission Lab Data MDM Lab Attestation statement: I reviewed the patient's lab results. 04/11/23 10:43 04/11/23 10:43 Labs: Lab Results 04/11/23 04/11/23 04/11/23 Range/Units 10:43 10:43 10:43 WBC 6.8 (4.8-10.8) X10*3/uL RBC 4.45 L (4.60-5.80) X10*6/uL Hgb 13.3 L (14.0-18.0) g/dl Hct 39.8 L (42.0-52.0) % MCV 89.4 (80.0-98.0) fL MCH 29.9 (27.0-33.0) pg MCHC 33.4 (31.0-36.0) g/dl RDW 13.7 (11.0-16.0) % Plt Count 181 D (160-400) X10*3/uL MPV 11.5 (9.4-12.4) fL Immature Gran % (Auto) 0.3 (0.0-0.4) % Neut % (Auto) 70.6 (45-73) % Lymph % (Auto) 21.4 (20-40) % [place] % (Auto) 2.1 (2-11) % Eos % (Auto) 5.2 H (0-4) % Baso % (Auto) 0.4 (0-2) % Lymph # (Auto) 1.5 (1.2-4.9) X10*3/uL [place] # (Auto) 0.1 (0.1-1.2) X10*3/uL Eos # (Auto) 0.4 (0.0-0.4) X10*3/uL Baso # (Auto) 0.0 (0.0-0.2) X10*3/uL Abs Immat Gran (auto) 0.02 (0.00-0.03) X10*3/uL Absolute Neuts (auto) 4.8 (2.0-8.3) x10*3/uL Absolute Nucleated RBC 0.000 (0.0-0.012) X10*3/uL Nucleated RBC % (auto) 0.0 (0.0-0.2) /100WBC PT 10.3 L (11.1-13.3) SEC INR 0.8 L (0.9-1.1) APTT (26.0-36.4) SEC Sodium 138 (135-145) mmol/L Potassium 3.5 (3.3-5.1) mmol/L Chloride 101 (96-108) mmol/L Carbon Dioxide 27 (22-29) mmol/L Anion Gap 14 (12-20) BUN 27 H (9-16) mg/dL Creatinine 1.12 (0.5-1.4) mg/dL Estim Creat Clear Calc 60.5 Estimated GFR > 60 Random Glucose 97 (60-115) mg/dL Calcium 9.7 D (8.4-10.2) mg/dL Total Bilirubin 0.6 (0.0-1.0) mg/dL AST 29 (5-37) U/L ALT 42 H (0-40) U/L Alkaline Phosphatase 117 (39-117) U/L Total Protein 7.0 (6.5-8.0) g/dL Albumin 4.1 (3.5-5.0) g/dL COVID-19 (ROXANN) (Negative) COVID-19 Clin Com 04/11/23 04/11/23 Range/Units 10:43 10:43 WBC (4.8-10.8) X10*3/uL RBC (4.60-5.80) X10*6/uL Hgb (14.0-18.0) g/dl Hct (42.0-52.0) % MCV (80.0-98.0) fL MCH (27.0-33.0) pg MCHC (31.0-36.0) g/dl RDW (11.0-16.0) % Plt Count (160-400) X10*3/uL MPV (9.4-12.4) fL Immature Gran % (Auto) (0.0-0.4) % Neut % (Auto) (45-73) % Lymph % (Auto) (20-40) % [place] % (Auto) (2-11) % Eos % (Auto) (0-4) % Baso % (Auto) (0-2) % Lymph # (Auto) (1.2-4.9) X10*3/uL [place] # (Auto) (0.1-1.2) X10*3/uL Eos # (Auto) (0.0-0.4) X10*3/uL Baso # (Auto) (0.0-0.2) X10*3/uL Abs Immat Gran (auto) (0.00-0.03) X10*3/uL Absolute Neuts (auto) (2.0-8.3) x10*3/uL Absolute Nucleated RBC (0.0-0.012) X10*3/uL Nucleated RBC % (auto) (0.0-0.2) /100WBC PT (11.1-13.3) SEC INR (0.9-1.1) APTT 25.2 L (26.0-36.4) SEC Sodium (135-145) mmol/L Potassium (3.3-5.1) mmol/L Chloride (96-108) mmol/L Carbon Dioxide (22-29) mmol/L Anion Gap (12-20) BUN (9-16) mg/dL Creatinine (0.5-1.4) mg/dL Estim Creat Clear Calc Estimated GFR Random Glucose (60-115) mg/dL Calcium (8.4-10.2) mg/dL Total Bilirubin (0.0-1.0) mg/dL AST (5-37) U/L ALT (0-40) U/L Alkaline Phosphatase (39-117) U/L Total Protein (6.5-8.0) g/dL Albumin (3.5-5.0) g/dL COVID-19 (ROXANN) Negative (Negative) COVID-19 Clin Com See Note Independent Interpretation I performed an independent interpretation of an: Plain X-Ray Interpretation: small pleural effusion Radiology Impression Discussion of test interpretation with radiology: I have reviewed the radiologist's reading. Radiologist Impression: ng mass which was described on recent CT from October 2022. Pleura: Small subpulmonic right pleural effusion developed. Heart: Cardiac device over the left hemithorax unchanged. Mediastinum: The mediastinum is within normal limits.. Bones: Skeletal structures included are normal for patient's age. XR/XR chest 2V IMPRESSION: ? *? Opacification, mass right lower lobe right infrahilar region correlate with the mass seen on recent CT scan from 11/10/2022. ? *? Newly developed small subpulmonic right pleural effusion. ? *? No pneumothorax. ? Dictated By: Adalid Khan MD Signed By: <Electronically signed by Adalid Khan MD in [place]> 02/28/23 1712 DD/ 1215 External Record Review External record reviewed: Outpatient record from [facility] Chronic Conditions COPD/lung cancer Discharge Plan Discharge Clinical Impression: Vomiting, Shortness of breath, Lung cancer, COPD (chronic obstructive pulmonary disease) Patient Disposition: Home, Self-Care Instructions: Acute Nausea and Vomiting (ED), Shortness of Breath (ED) Additional Instructions: Your refused the admission you told us that you want to go home please return if you are worse Prescriptions: No Action Eliquis 5 mg tablet 5 mg PO BID Qty: 60 5RF Hold Instructions: Resume on 09/27/22. May resume on Tuesday September 27, 2022 nitroglycerin 0.4 mg tablet, sublingual 0.4 mg sublingual Q5M PRN (Reason: chest pain) Qty: 25 1RF Rx Instructions: do not exceed 3 doses per episode rosuvastatin 40 mg tablet 40 mg PO BEDTIME Qty: 90 3RF amiodarone 200 mg tablet 200 mg PO DAILY Qty: 90 3RF furosemide 20 mg tablet 20 mg PO DAILY Qty: 90 3RF gabapentin 300 mg capsule 300 mg PO BID omeprazole 20 mg capsule,delayed release(DR/EC) 20 mg PO DAILY albuterol sulfate 90 mcg/actuation HFA aerosol inhaler 2 puff inhalation Q4H PRN (Reason: Respiratory Distress) losartan 50 mg tablet 50 mg PO DAILY Trelegy Ellipta 100-62.5-25 mcg blister with device 1 inh inhalation DAILY 30 Days Qty: 1 6RF ipratropium-albuterol 0.5 mg-3 mg(2.5 mg base)/3 mL solution for nebulization 3 ml inhalation Q6H PRN (Reason: wheezing) 30 Days Qty: 270 6RF Interventions: ED Discharge Assessment Last Done: 04/11/23 14:37
[2023-04-11 10:47] LABS: MANUAL DIFF FLAG NO
[2023-04-11 10:50] LABS: Basophils Percent Auto 0.4 % (0-2); Eosinophils Absolute Auto 0.4 X10*3/uL (0.0-0.4); Eosinophils Percent Auto 5.2 % (0-4); Hematocrit 39.8 % (42.0-52.0); Hemoglobin 13.3 g/dl (14.0-18.0); Imm Gran Abs Auto 0.02 X10*3/uL (0.00-0.03); Imm Gran Pct Auto 0.3 % (0.0-0.4); Lymphocytes Absolute Auto 1.5 X10*3/uL (1.2-4.9); Lymphocytes Percent Auto 21.4 % (20-40); Mean Corpuscular HGB Conc 33.4 g/dl (31.0-36.0); Mean Corpuscular Hemoglobin 29.9 pg (27.0-33.0); Mean Corpuscular Volume 89.4 fL (80.0-98.0); Mean Platelet Volume 11.5 fL (9.4-12.4); Monocytes Absolute Auto 0.1 X10*3/uL (0.1-1.2); Monocytes Percent Auto 2.1 % (2-11); Neutrophils Absolute Auto 4.8 x10*3/uL (2.0-8.3); Neutrophils Percent Auto 70.6 % (45-73); Platelet Count 181 X10*3/uL (160-400); Red Blood Count 4.45 X10*6/uL (4.60-5.80); Red Cell Distribution Width 13.7 % (11.0-16.0); White Blood Count 6.8 X10*3/uL (4.8-10.8)
[2023-04-11 10:59] LABS: INTERNATIONAL NORM RATIO 0.8 (0.9-1.1); Prothrombin Time 10.3 SEC (11.1-13.3)
[2023-04-11 11:02] LABS: Partial Thromboplastin Time 25.2 SEC (26.0-36.4)
[2023-04-11] MEDS: ondansetron HCL 4 MG/2 ML VIAL IVPUSH (11:06)
[2023-04-11 11:07] LABS: COVID-19 Test Negative (Negative); IDNOW Serial# BCCEAD1C
[2023-04-11] MEDS: 0.9 % Sodium Chloride 1,000 ML 100 ML IVCONT (11:07)
[2023-04-11 11:11] VITALS: BP 131/74; PULSE 70; RESP 18; O2SAT 98
[2023-04-11 11:13] LABS: Alanine Aminotransferase 42 U/L (0-40); Albumin Level 4.1 g/dL (3.5-5.0); Alkaline Phosphatase 117 U/L (39-117); Anion Gap 14 (12-20); Aspartate Amino Transferase 29 U/L (5-37); Bilirubin Total 0.6 mg/dL (0.0-1.0); Blood Urea Nitrogen 27 mg/dL (9-16); Calcium 9.7 mg/dL (8.4-10.2); Carbon Dioxide 27 mmol/L (22-29); Chloride 101 mmol/L (96-108); Creatinine Clr Calc Pharmacy 60.5; Estimated Glomerular Filt Rate > 60; Glucose Random 97 mg/dL (60-115); Potassium 3.5 mmol/L (3.3-5.1); Sodium 138 mmol/L (135-145)
[2023-04-11 11:53] VITALS: BP 141/55; PULSE 96; RESP 16; TEMP 36.7; O2SAT 98
[2023-04-11 12:06] VITALS: PULSE 101; RESP 16; O2SAT 98
[2023-04-11] MEDS: Albuterol/Iprat 2.5/0.5MG 3 ML AMPUL.NEB INHALE (12:06)
[2023-04-11] MEDS: methylPREDNISolone Sod Succ 125 MG/2 ML VIAL IVPUSH (13:15)
--- NOTE | 2023-04-11 14:55 | PC.NURSE ---
Patient did not want to stay states he could be more comfortable at home. Dr. Santos was notified.
== END 2023-04-11 14:56 | disposition home or self-care (01) ==
PROVIDERS: Emergency Provider Emergency Medicine; PCP Internal Medicine
DX: R06.02 Shortness of breath (principal); C34.90 Malignant neoplasm of unspecified part of unspecified bronchus or lung; J44.9 Chronic obstructive pulmonary disease, unspecified; J90 Pleural effusion, not elsewhere classified; R11.2 Nausea with vomiting, unspecified; F17.210 Nicotine dependence, cigarettes, uncomplicated; Z20.828 Contact with and (suspected) exposure to other viral communicable diseases; Z20.822 Contact with and (suspected) exposure to COVID-19; Z79.899 Other long term (current) drug therapy; Z71.6 Tobacco abuse counseling
CPT/HCPCS: 36415; 71046; 80053; 85025; 85610; 85730; 87635; 94640; 96374; 96375; 99284; J2405; J2930

== ENCOUNTER → 2023-04-14 23:59 | Outpatient (BNV) | payer MEDICARE, MEDICAID, SELFPAY ==
--- NOTE | 2023-04-20 12:49 | MHC.OFFVIS ---
Intake Intake Visit Reasons: Remote HF Monitoring- [facility] Allergies cat dander [CATS] Allergy (Intermediate, Verified 04/11/23 09:55) Itchy Eyes, coughing PFSH Medical History BPH (benign prostatic hyperplasia) COPD (chronic obstructive pulmonary disease) Coronary artery disease History of CVA (cerebrovascular accident) (~2018) History of left bundle branch block History of [place] (myocardial infarction) History of TIA (transient ischemic attack) (~2003) HTN (hypertension) NICM (nonischemic cardiomyopathy) Nicotine dependence, unspecified, uncomplicated PAF (paroxysmal atrial fibrillation) (~2021) Pulmonary nodules RADHA (renal artery stenosis) Restless leg syndrome Tubular adenoma of colon (~2006) Surgical History History of back surgery (~1988) History of bronchoscopy (~2021) History of cardiac cath History of cholecystectomy (~2013) History of colonoscopy History of heart artery stent (~2019) History of implantable cardiac defibrillator (ICD) (~2018) History of stent insertion of renal artery (~2020) Status post insertion of iliac artery stent (~2018) Family History Father No problems noted. Social History Household Members: None Housing: Apartment Are you a primary managed care coordinator to a significant other at home: No Do you presently have visiting nurse or other home services: No Alcohol intake: current Alcohol intake frequency: holidays/special occasions only Patient Tobacco Use Status: Current everyday Tobacco user Tobacco use type: Cigarette Cigarettes Per Day: 5 Years Smoked: 55+ Second Hand Smoke Exposure: Yes Advance Directives: Yes Advance Directives on File: Yes Advance Directives Date on File: 09/24/21 service: No Current occupational status: retired Office Procedures Cardiac Device Check Cardiac Device Check Details: [employer] D. Stable thoracic impedance. [id number] Cardiac Device Interrogation, cardio physiologic monitor Procedure code (CPT) selection complete Assessment & Plan Assessment & Plan (1) ICD (implantable cardioverter-defibrillator) in place: Onset Date: Code(s): Z95.810 - Presence of automatic (implantable) cardiac defibrillator Orders: Orders AMB Cardiac Device Follow-up 04/14/23 Z95.810 - Presence of automatic (implantable) cardiac defibrillator Coding Level of Care Code Procedure Only Diagnoses ICD (implantable cardioverter-defibrillator) in place Z95.810 CPT Codes Cardiac Device Check - Cardiac Device 15: [id number] Cardiac Device Interrogation, cardio physiologic monitor ([id number])
== END ==
PROVIDERS: PCP Internal Medicine; Visit Provider Internal Medicine Cardiovascular Disease
DX: I50.9 Heart failure, unspecified (principal); Z95.810 Presence of automatic (implantable) cardiac defibrillator
CPT/HCPCS: 93297

== ENCOUNTER → 2023-05-20 23:59 | Outpatient (BNV) | payer MEDICARE, MEDICAID, SELFPAY ==
--- NOTE | 2023-05-21 12:37 | MHC.OFFVIS ---
Intake Intake Visit Reasons: Remote HF Monitoring- [facility] Allergies cat dander [CATS] Allergy (Intermediate, Verified 04/11/23 09:55) Itchy Eyes, coughing PFSH Medical History BPH (benign prostatic hyperplasia) COPD (chronic obstructive pulmonary disease) Coronary artery disease History of CVA (cerebrovascular accident) (~2018) History of left bundle branch block History of [place] (myocardial infarction) History of TIA (transient ischemic attack) (~2003) HTN (hypertension) NICM (nonischemic cardiomyopathy) Nicotine dependence, unspecified, uncomplicated PAF (paroxysmal atrial fibrillation) (~2021) Pulmonary nodules RADHA (renal artery stenosis) Restless leg syndrome Tubular adenoma of colon (~2006) Surgical History History of back surgery (~1988) History of bronchoscopy (~2021) History of cardiac cath History of cholecystectomy (~2013) History of colonoscopy History of heart artery stent (~2019) History of implantable cardiac defibrillator (ICD) (~2018) History of stent insertion of renal artery (~2020) Status post insertion of iliac artery stent (~2018) Family History Father No problems noted. Social History Household Members: None Housing: Apartment Are you a primary acute care clinical nurse specialist to a significant other at home: No Do you presently have visiting nurse or other home services: No Alcohol intake: current Alcohol intake frequency: holidays/special occasions only Patient Tobacco Use Status: Current everyday Tobacco user Tobacco use type: Cigarette Cigarettes Per Day: 5 Years Smoked: 55+ Second Hand Smoke Exposure: Yes Advance Directives: Yes Advance Directives on File: Yes Advance Directives Date on File: 09/24/21 service: No Current occupational status: retired Office Procedures Cardiac Device Check Cardiac Device Check Details: HF monitoring. Stable thoracic impedance. [id number] Cardiac Device Interrogation, cardio physiologic monitor Procedure code (CPT) selection complete Assessment & Plan Assessment & Plan (1) CHF (congestive heart failure): Code(s): I50.9 - Heart failure, unspecified Orders: Orders AMB Cardiac Device Follow-up 05/20/23 I50.9 - Heart failure, unspecified Coding Level of Care Code Procedure Only Diagnoses CHF (congestive heart failure) I50.9 CPT Codes Cardiac Device Check - Cardiac Device 15: [id number] Cardiac Device Interrogation, cardio physiologic monitor ([id number])
== END ==
PROVIDERS: PCP Internal Medicine; Visit Provider Internal Medicine Cardiovascular Disease
DX: I50.9 Heart failure, unspecified (principal)
CPT/HCPCS: 93297

== ENCOUNTER → 2023-06-28 23:59 | Outpatient (BNV) | payer MEDICARE, MEDICAID, SELFPAY ==
--- NOTE | 2023-07-07 20:40 | MHC.OFFVIS ---
Intake Intake Visit Reasons: Remote ICD Check- [facility] Allergies cat dander [CATS] Allergy (Intermediate, Verified 04/11/23 09:55) Itchy Eyes, coughing PFSH Medical History BPH (benign prostatic hyperplasia) COPD (chronic obstructive pulmonary disease) Coronary artery disease History of CVA (cerebrovascular accident) (~2018) History of left bundle branch block History of [place] (myocardial infarction) History of TIA (transient ischemic attack) (~2003) HTN (hypertension) NICM (nonischemic cardiomyopathy) Nicotine dependence, unspecified, uncomplicated PAF (paroxysmal atrial fibrillation) (~2021) Pulmonary nodules RADHA (renal artery stenosis) Restless leg syndrome Tubular adenoma of colon (~2006) Surgical History History of back surgery (~1988) History of bronchoscopy (~2021) History of cardiac cath History of cholecystectomy (~2013) History of colonoscopy History of heart artery stent (~2019) History of implantable cardiac defibrillator (ICD) (~2018) History of stent insertion of renal artery (~2020) Status post insertion of iliac artery stent (~2018) Family History Father No problems noted. Household Members: None Housing: Apartment Are you a primary elderly caregiver to a significant other at home: No Do you presently have visiting nurse or other home services: No Alcohol intake: current Alcohol intake frequency: holidays/special occasions only Patient Tobacco Use Status: Current everyday Tobacco user Tobacco use type: Cigarette Cigarettes Per Day: 5 Years Smoked: 55+ Second Hand Smoke Exposure: Yes Advance Directives Date on File: 09/24/21 service: No Current occupational status: retired Office Procedures Cardiac Device Check Cardiac Device Check Details: BiVAICD No new alerts. [id number] Cardiac Device Interrogation, pacemaker or defibrillator Procedure code (CPT) selection complete Assessment & Plan Assessment & Plan (1) ICD (implantable cardioverter-defibrillator) in place: Onset Date: Code(s): Z95.810 - Presence of automatic (implantable) cardiac defibrillator Coding Level of Care Code Procedure Only Diagnoses ICD (implantable cardioverter-defibrillator) in place Z95.810 CPT Codes Cardiac Device Check - Cardiac Device 14: [id number] Cardiac Device Interrogation, pacemaker or defibrillator ([id number])
== END ==
PROVIDERS: PCP Internal Medicine; Visit Provider Internal Medicine Cardiovascular Disease
DX: I42.9 Cardiomyopathy, unspecified (principal); Z95.810 Presence of automatic (implantable) cardiac defibrillator
CPT/HCPCS: 93295

== ENCOUNTER → 2023-07-11 23:59 | Outpatient (BNV) | payer MEDICARE, MEDICAID, SELFPAY ==
--- NOTE | 2023-07-11 21:24 | MHC.OFFVIS ---
Intake Intake Visit Reasons: Remote HF Monitoring- [facility] Allergies cat dander [CATS] Allergy (Intermediate, Verified 04/11/23 09:55) Itchy Eyes, coughing PFSH Medical History BPH (benign prostatic hyperplasia) COPD (chronic obstructive pulmonary disease) Coronary artery disease History of CVA (cerebrovascular accident) (~2018) History of left bundle branch block History of [place] (myocardial infarction) History of TIA (transient ischemic attack) (~2003) HTN (hypertension) NICM (nonischemic cardiomyopathy) Nicotine dependence, unspecified, uncomplicated PAF (paroxysmal atrial fibrillation) (~2021) Pulmonary nodules RADHA (renal artery stenosis) Restless leg syndrome Tubular adenoma of colon (~2006) Surgical History History of back surgery (~1988) History of bronchoscopy (~2021) History of cardiac cath History of cholecystectomy (~2013) History of colonoscopy History of heart artery stent (~2019) History of implantable cardiac defibrillator (ICD) (~2018) History of stent insertion of renal artery (~2020) Status post insertion of iliac artery stent (~2018) Family History Father No problems noted. Household Members: None Housing: Apartment Are you a primary client care representative to a significant other at home: No Do you presently have visiting nurse or other home services: No Alcohol intake: current Alcohol intake frequency: holidays/special occasions only Patient Tobacco Use Status: Current everyday Tobacco user Tobacco use type: Cigarette Cigarettes Per Day: 5 Years Smoked: 55+ Second Hand Smoke Exposure: Yes Advance Directives Date on File: 09/24/21 service: No Current occupational status: retired Office Procedures Cardiac Device Check Cardiac Device Check Details: HF monitoring Stable thoracic impedance. [id number] Cardiac Device Interrogation, cardio physiologic monitor Procedure code (CPT) selection complete Assessment & Plan Assessment & Plan (1) CHF (congestive heart failure): Code(s): I50.9 - Heart failure, unspecified Orders: Orders AMB Cardiac Device Follow-up Today I50.9 - Heart failure, unspecified Coding Level of Care Code Procedure Only Diagnoses CHF (congestive heart failure) I50.9 CPT Codes Cardiac Device Check - Cardiac Device 15: [id number] Cardiac Device Interrogation, cardio physiologic monitor ([id number])
== END ==
PROVIDERS: PCP Internal Medicine; Visit Provider Internal Medicine Cardiovascular Disease
DX: I50.9 Heart failure, unspecified (principal); Z95.810 Presence of automatic (implantable) cardiac defibrillator
CPT/HCPCS: 93297

== ENCOUNTER → 2023-08-11 23:59 | Outpatient (BNV) | payer MEDICARE, SELFPAY ==
--- NOTE | 2023-08-16 22:13 | MHC.OFFVIS ---
Intake Intake Visit Reasons: Remote HF Monitoring- [facility] Allergies cat dander [CATS] Allergy (Intermediate, Verified 04/11/23 09:55) Itchy Eyes, coughing PFSH Medical History BPH (benign prostatic hyperplasia) COPD (chronic obstructive pulmonary disease) Coronary artery disease History of CVA (cerebrovascular accident) (~2018) History of left bundle branch block History of [place] (myocardial infarction) History of TIA (transient ischemic attack) (~2003) HTN (hypertension) NICM (nonischemic cardiomyopathy) Nicotine dependence, unspecified, uncomplicated PAF (paroxysmal atrial fibrillation) (~2021) Pulmonary nodules RADHA (renal artery stenosis) Restless leg syndrome Tubular adenoma of colon (~2006) Surgical History History of back surgery (~1988) History of bronchoscopy (~2021) History of cardiac cath History of cholecystectomy (~2013) History of colonoscopy History of heart artery stent (~2019) History of implantable cardiac defibrillator (ICD) (~2018) History of stent insertion of renal artery (~2020) Status post insertion of iliac artery stent (~2018) Family History Father No problems noted. Social History Household Members: None Housing: Apartment Are you a primary child care center assistant director to a significant other at home: No Do you presently have visiting nurse or other home services: No Alcohol intake: current Alcohol intake frequency: holidays/special occasions only Patient Tobacco Use Status: Current everyday Tobacco user Tobacco use type: Cigarette Cigarettes Per Day: 5 Years Smoked: 55+ Second Hand Smoke Exposure: Yes Advance Directives Date on File: 09/24/21 service: No Current occupational status: retired Office Procedures Cardiac Device Check Cardiac Device Check Details: HF Stable thoracic impedance. [id number] Cardiac Device Interrogation, cardio physiologic monitor Procedure code (CPT) selection complete Assessment & Plan Assessment & Plan (1) ICD (implantable cardioverter-defibrillator) in place: Onset Date: Code(s): Z95.810 - Presence of automatic (implantable) cardiac defibrillator Plan: Orders: Orders AMB Cardiac Device Follow-up 12/28/23 Z95.810 - Presence of automatic (implantable) cardiac defibrillator Coding Level of Care Code Procedure Only Diagnoses ICD (implantable cardioverter-defibrillator) in place Z95.810 CPT Codes Cardiac Device Check - Cardiac Device 15: [id number] Cardiac Device Interrogation, cardio physiologic monitor ([id number])
== END ==
PROVIDERS: PCP Internal Medicine; Visit Provider Internal Medicine Cardiovascular Disease
DX: I50.9 Heart failure, unspecified (principal); Z95.810 Presence of automatic (implantable) cardiac defibrillator
CPT/HCPCS: 93297

== ENCOUNTER 2023-09-01 17:57 | Emergency (ER) | payer MEDICARE, MEDICAID, SELFPAY ==
--- NOTE | ~2023-09-01 | XR_ITS ---
EXAMINATION: XR CHEST CLINICAL INFORMATION: Weakness. COMPARISON: Prior chest radiographs, most recently 04/03/2023. TECHNIQUE: 2 frontal views of the chest were obtained. FINDINGS: The heart, great vessels and mediastinum are normal. There is mild pulmonary vascular congestion, without overt pulmonary edema. There is a right thoracostomy tube, with tip positioned at the medial apex. A small right pleural effusion is seen. No left effusion is seen. There is no gross infiltrate. No pneumothorax is seen. There is no acute osseous abnormality. An AICD shows no lead fracture or change in lead tip positions. XR/XR chest 1V IMPRESSION: 1. There is pulmonary vascular congestion, without overt pulmonary edema. 2. There is a small right pleural effusion. 3. A right thoracostomy tube is seen, with tip at the medial right apex. No pneumothorax is noted.
--- NOTE | ~2023-09-01 | CT_ITS ---
EXAMINATION: CT HEAD WITHOUT CONTRAST CLINICAL INFORMATION: Fall. On eliquis.. COMPARISON: CT head 09/12/2021 TECHNIQUE: Contiguous axial imaging was performed from the skull base to vertex without intravenous administration of contrast. This CT examination was performed using dose optimization techniques as appropriate, variously including the following: *Automated exposure control *Adjustment of mA and/or kV according to patient size (this includes techniques or standardized protocols for targeted exams where dose is matched to indication/reason for exam; i.e. extremities or head) *Use of iterative reconstruction technique DLP: 652 mGy-cm FINDINGS: HEAD: There is no evidence of acute intracranial hemorrhage or edematous territorial infarction. No abnormal mass-effect or midline shift. No extra-axial fluid collections. Patel to white matter differentiation is well preserved. Stable lacunar infarct in the left lentiform nucleus and right caudate lobe. Ventricles are of normal size. Bilateral lens extraction. No acute calvarial fracture. Right maxillary sinus disease. Partial opacification left maxillary sinus, left ethmoid sinus. Mastoid air cells are well-aerated. CT/CT head/brain wo IV con IMPRESSION: 1. No CT evidence of acute intracranial hemorrhage or edematous territorial infarction.. 2. Stable old lacunar infarct in the right caudate, left lentiform nucleus. 3. Sinus disease as above.
--- NOTE | ~2023-09-01 | XR_ITS ---
EXAMINATION: XR HIP, LEFT CLINICAL INFORMATION: Pain. COMPARISON: Prior radiographs, most recently 09/19/2018; PET/CT dated 10/26/2022. TECHNIQUE: AP and frog-leg lateral views of the left hip are submitted, together with a frontal view of the pelvis. FINDINGS: There is bony demineralization. The bilateral acetabular joint spaces are symmetric and well-maintained. A tiny well-corticated accessory ossification center is seen lateral to the left acetabular roof. There are sclerotic bone islands again seen within the left ilium and acetabulum and the proximal femora. A large synovial herniation pit (Joe's pit) is again seen within the left femoral neck. The femoral heads are smooth. There is no fracture or dislocation. The sacroiliac joints are symmetric and well-maintained. There are vasectomy clips. XR/XR hip LT w PEL1V IMPRESSION: 1. No unusual degenerative change is seen of the hips. 2. There is no fracture or dislocation.
[2023-09-01 18:34] VITALS: BP 141/102; PULSE 66; RESP 20; TEMP 36.6; O2SAT 100; BMI 17.5
--- NOTE | 2023-09-01 18:36 | ECG_ITS ---
Test Reason : fall Blood Pressure : / mmHG Vent. Rate : 064 BPM Atrial Rate : 064 BPM P-R Int : 148 ms QRS Dur : 132 ms QT Int : 472 ms P-R-T Axes : 076 185 074 degrees QTc Int : 486 ms Atrial-sensed ventricular-paced rhythm Biventricular pacemaker detected Abnormal ECG When compared with ECG of 25-FEB-2022 11:29, No significant changes seen Referred By: Manuel Jennings Electronically Signed By:LESLEE MOE
--- NOTE | 2023-09-01 18:36 | ED_ITS ---
HPI - General Adult General Chief complaint: Fall Stated complaint: fell at home, not being specific Related Data Home Medications ?Medication ?Instructions ?Recorded ?Confirmed gabapentin 300 mg capsule 300 mg PO BID 05/16/20 04/06/23 omeprazole 20 mg capsule,delayed 20 mg PO DAILY 05/16/20 04/06/23 release albuterol sulfate 90 mcg/actuation 2 puff inhalation Q4H PRN 08/25/20 04/06/23 aerosol inhaler Respiratory Distress Previous Rx's ?Medication ?Instructions ?Recorded apixaban 5 mg tablet (Eliquis) 5 mg PO BID #60 tabs 09/23/21 fluticasone fur. 100 mcg-umeclid 1 inh inhalation DAILY 30 days #1 04/06/22 62.5 mcg-vilant 25 mcg ea inhalat.powder (Trelegy Ellipta) ipratropium 0.5 mg-albuterol 3 mg 3 ml inhalation Q6H PRN wheezing 04/06/22 (2.5 mg base)/3 mL nebulization 30 days #270 mL soln rosuvastatin 40 mg tablet 40 mg PO BEDTIME #90 tabs 03/03/23 nitroglycerin 0.4 mg sublingual 0.4 mg sublingual Q5M PRN chest 04/22/23 tablet pain #25 tabs amiodarone 200 mg tablet 200 mg PO DAILY #90 tabs 05/21/23 furosemide 20 mg tablet 20 mg PO DAILY #90 tabs 05/21/23 losartan 50 mg tablet 50 mg PO DAILY #90 tabs 05/21/23 Allergies Allergy/AdvReac Type Severity Reaction Status Date / Time cat dander [CATS] Allergy Intermediate Itchy Verified 09/01/23 18:39 Eyes, coughing PMFSH Past Medical History Onset Date is defined in the Problem List Problems that require an onset date and time if occurred within 24 hrs of arrival to the ED Aortic Dissection and Rupture; Neurologic impairment; Cardiopulmonary Arrest; Endotracheal Intubation; Insertion or Replacement of Mechanical Circulatory Assist Device Medical History BPH (benign prostatic hyperplasia) COPD (chronic obstructive pulmonary disease) Coronary artery disease History of CVA (cerebrovascular accident) (~2018) History of left bundle branch block History of [place] (myocardial infarction) History of TIA (transient ischemic attack) (~2003) HTN (hypertension) NICM (nonischemic cardiomyopathy) Nicotine dependence, unspecified, uncomplicated PAF (paroxysmal atrial fibrillation) (~2021) Pulmonary nodules RADHA (renal artery stenosis) Restless leg syndrome Tubular adenoma of colon (~2006) Surgical History History of back surgery (~1988) History of bronchoscopy (~2021) History of cardiac cath History of cholecystectomy (~2013) History of colonoscopy History of heart artery stent (~2019) History of implantable cardiac defibrillator (ICD) (~2018) History of stent insertion of renal artery (~2020) Status post insertion of iliac artery stent (~2018) Family History Family History Father No problems noted. Social History Social History Household Members: None Housing: Apartment Are you a primary healthcare administrative assistant to a significant other at home: No Do you presently have visiting nurse or other home services: No Alcohol intake: current Alcohol intake frequency: holidays/special occasions only Patient Tobacco Use Status: Current everyday Tobacco user Tobacco use type: Cigarette Cigarettes Per Day: 5 Years Smoked: 55+ Second Hand Smoke Exposure: Yes Advance Directives: Yes Advance Directives Information Provided: No Advance Directives on File: No Advance Directives Date on File: 09/24/21 service: No Current occupational status: retired Physical Exam ED Vital Signs: BMI result Body Mass Index 17.5 Course Course Course Narrative: RME- 68-year-old male with past medical history significant for lung cancer followed by [facility] not currently on chemotherapy, chronic kidney disease, CHF, hypertension, COPD, AFib on Eliquis presents for evaluation after a syncopal episode. Patient reports that earlier this morning he was walking using his walker and ?everything went black and I fell down. ? He complains of left-sided hip pain. Plan for imaging, labs, EKG Medical Decision Making Lab Data 09/01/23 19:23 09/01/23 19:23 Labs: Lab Results 09/01/23 Range/Units 19:23 WBC 8.5 (4.8-10.8) X10*3/uL RBC 3.05 L D (4.60-5.80) X10*6/uL Hgb 9.7 L D (14.0-18.0) g/dl Hct 29.4 L D (42.0-52.0) % MCV 96.4 (80.0-98.0) fL MCH 31.8 (27.0-33.0) pg MCHC 33.0 (31.0-36.0) g/dl RDW 16.0 (11.0-16.0) % Plt Count 307 D (160-400) X10*3/uL MPV 10.4 (9.4-12.4) fL Immature Gran % (Auto) 0.9 H (0.0-0.4) % Neut % (Auto) 71.4 (45-73) % Lymph % (Auto) 17.6 L (20-40) % Vermilion % (Auto) 6.5 (2-11) % Eos % (Auto) 2.8 (0-4) % Baso % (Auto) 0.8 (0-2) % Lymph # (Auto) 1.5 (1.2-4.9) X10*3/uL [place] # (Auto) 0.6 (0.1-1.2) X10*3/uL Eos # (Auto) 0.2 (0.0-0.4) X10*3/uL Baso # (Auto) 0.1 (0.0-0.2) X10*3/uL Abs Immat Gran (auto) 0.08 H (0.00-0.03) X10*3/uL Absolute Neuts (auto) 6.1 (2.0-8.3) x10*3/uL Absolute Nucleated RBC 0.000 (0.0-0.012) X10*3/uL Nucleated RBC % (auto) 0.0 (0.0-0.2) /100WBC PT 16.1 H D (11.1-13.3) SEC INR 1.3 H (0.9-1.1) APTT 34.6 D (26.0-36.4) SEC Sodium 137 (135-145) mmol/L Potassium 3.8 (3.3-5.1) mmol/L Chloride 101 (96-108) mmol/L Carbon Dioxide 26 (22-29) mmol/L Anion Gap 14 (12-20) BUN 11 (9-16) mg/dL Creatinine 1.91 H (0.5-1.4) mg/dL Estim Creat Clear Calc 31.0 Estimated GFR 35 Random Glucose 93 (60-115) mg/dL Lactic Acid 1.7 (0.5-2.0) mmol/L Calcium 8.9 D (8.4-10.2) mg/dL Total Bilirubin 0.1 (0.0-1.0) mg/dL AST 19 (5-37) U/L ALT 12 (0-40) U/L Alkaline Phosphatase 140 H (39-117) U/L Troponin I High Sens 4.5 (<3.5-35.0) ng/L B-Natriuretic Peptide 134 H (<100) pg/mL Total Protein 6.0 L (6.5-8.0) g/dL Albumin 3.4 L (3.5-5.0) g/dL Lipase 14 (8-78) U/L COVID-19 (ROXANN) Negative (Negative) COVID-19 Clin Com See Note Influenza Type A (MAICO) Negative (Negative) Influenza Type B (MAICO) Negative (Negative) Influenza A & B Note N Discharge Plan Discharge Clinical Impression: Fall Patient Disposition: Left W/O Completing Treatment Prescriptions: No Action Eliquis 5 mg tablet 5 mg PO BID Qty: 60 5RF Hold Instructions: Resume on 09/27/22. December resume on Tuesday September 27, 2022 rosuvastatin 40 mg tablet 40 mg PO BEDTIME Qty: 90 3RF nitroglycerin 0.4 mg tablet, sublingual 0.4 mg sublingual Q5M PRN (Reason: chest pain) Qty: 25 1RF Rx Instructions: do not exceed 3 doses per episode gabapentin 300 mg capsule 300 mg PO BID omeprazole 20 mg capsule,delayed release(DR/EC) 20 mg PO DAILY albuterol sulfate 90 mcg/actuation HFA aerosol inhaler 2 puff inhalation Q4H PRN (Reason: Respiratory Distress) Trelegy Ellipta 100-62.5-25 mcg blister with device 1 inh inhalation DAILY 30 Days Qty: 1 6RF ipratropium-albuterol 0.5 mg-3 mg(2.5 mg base)/3 mL solution for nebulization 3 ml inhalation Q6H PRN (Reason: wheezing) 30 Days Qty: 270 6RF amiodarone 200 mg tablet 200 mg PO DAILY Qty: 90 3RF furosemide 20 mg tablet 20 mg PO DAILY Qty: 90 3RF losartan 50 mg tablet 50 mg PO DAILY Qty: 90 3RF Discharge Date/Time: 09/02/23 00:27
[2023-09-01 19:32] LABS: MANUAL DIFF FLAG NO
[2023-09-01 19:44] LABS: INTERNATIONAL NORM RATIO 1.3 (0.9-1.1); Prothrombin Time 16.1 SEC (11.1-13.3)
[2023-09-01 19:47] LABS: Partial Thromboplastin Time 34.6 SEC (26.0-36.4)
[2023-09-01 19:49] LABS: Lactic Acid 1.7 mmol/L (0.5-2.0)
[2023-09-01 19:52] LABS: Alanine Aminotransferase 12 U/L (0-40); Albumin Level 3.4 g/dL (3.5-5.0); Alkaline Phosphatase 140 U/L (39-117); Anion Gap 14 (12-20); Aspartate Amino Transferase 19 U/L (5-37); Bilirubin Total 0.1 mg/dL (0.0-1.0); Blood Urea Nitrogen 11 mg/dL (9-16); Calcium 8.9 mg/dL (8.4-10.2); Carbon Dioxide 26 mmol/L (22-29); Chloride 101 mmol/L (96-108); Estimated Glomerular Filt Rate 35; Glucose Random 93 mg/dL (60-115); Lipase 14 U/L (8-78); Potassium 3.8 mmol/L (3.3-5.1); Sodium 137 mmol/L (135-145)
[2023-09-01 19:54] LABS: IDNOW Serial# 152EDE1D; Influenza A Negative (Negative); Influenza A & B2 Note N; Influenza B2 Negative (Negative)
[2023-09-01 19:56] LABS: B Type Natriuretic Peptide 134 pg/mL (<100)
[2023-09-01 20:00] LABS: Troponin-I High Sensitivity 4.5 ng/L (<3.5-35.0)
[2023-09-01 20:02] LABS: Basophils Absolute Auto 0.1 X10*3/uL (0.0-0.2); Basophils Percent Auto 0.8 % (0-2); Eosinophils Absolute Auto 0.2 X10*3/uL (0.0-0.4); Eosinophils Percent Auto 2.8 % (0-4); Hematocrit 29.4 % (42.0-52.0); Hemoglobin 9.7 g/dl (14.0-18.0); Imm Gran Abs Auto 0.08 X10*3/uL (0.00-0.03); Imm Gran Pct Auto 0.9 % (0.0-0.4); Lymphocytes Absolute Auto 1.5 X10*3/uL (1.2-4.9); Lymphocytes Percent Auto 17.6 % (20-40); Mean Corpuscular Hemoglobin 31.8 pg (27.0-33.0); Mean Corpuscular Volume 96.4 fL (80.0-98.0); Mean Platelet Volume 10.4 fL (9.4-12.4); Monocytes Absolute Auto 0.6 X10*3/uL (0.1-1.2); Monocytes Percent Auto 6.5 % (2-11); Neutrophils Absolute Auto 6.1 x10*3/uL (2.0-8.3); Neutrophils Percent Auto 71.4 % (45-73); Platelet Count 307 X10*3/uL (160-400); Red Blood Count 3.05 X10*6/uL (4.60-5.80); White Blood Count 8.5 X10*3/uL (4.8-10.8)
[2023-09-01 20:11] LABS: COVID-19 Test Negative (Negative); IDNOW Serial# 152EDE1D
--- NOTE | 2023-09-01 23:46 | PC.NURSE ---
This rn talked with the pt and told him he was coming into the main er, pt stated his ride was here and I heard them beeper the car horn as I was talking to him. Pt decided not to stay and left without completing treatment. Pt was concerned about his o2 tank and explained that we can place him on our tank, pt still decided to go.
== END 2023-09-02 00:27 | disposition left against medical advice (07) ==
LOC: HO.ED 23:57
PROVIDERS: Physician Assistant; Emergency Provider Emergency Medicine; PCP Internal Medicine
DX: S09.90XA Unspecified injury of head, initial encounter (principal); R55 Syncope and collapse; R06.02 Shortness of breath; M25.552 Pain in left hip; I48.91 Unspecified atrial fibrillation; F17.210 Nicotine dependence, cigarettes, uncomplicated; R51.9 Headache, unspecified; R07.89 Other chest pain; W01.10XA Fall on same level from slipping, tripping and stumbling with subsequent striking against unspecified object, initial encounter; Y93.9 Activity, unspecified; Y92.9 Unspecified place or not applicable; Y99.8 Other external cause status; Z79.01 Long term (current) use of anticoagulants; Z11.52 Encounter for screening for COVID-19; Z20.828 Contact with and (suspected) exposure to other viral communicable diseases; Z79.899 Other long term (current) drug therapy
CPT/HCPCS: 36415; 70450; 71045; 73502; 80053; 83605; 83690; 83880; 84484; 85025; 85610; 85730; 87502; 87635; 93005; 99283; 99284

== ENCOUNTER → 2023-09-01 18:36 | Outpatient (BNV) | payer MEDICARE, MEDICAID, SELFPAY | PROVIDERS: Emergency Provider Emergency Medicine; PCP Internal Medicine; Visit Provider Internal Medicine | DX: R94.31 Abnormal electrocardiogram [ECG] [EKG] (principal) | CPT/HCPCS: 93010 ==